=== PATIENT | female | born 1965 | race Caucasian/White ===

== ENCOUNTER 2020-05-28 09:14 | Outpatient (REF) | payer OTHER, SELFPAY ==
--- NOTE | 2020-05-28 10:36 | XR_ITS ---
EXAMINATION: XR LUMBOSACRAL SPINE CLINICAL INFORMATION: Lumbago with sciatica. Right side. COMPARISON: 10/04/2013 and 09/14/2019. TECHNIQUE: 3 views of the lumbar spine and 3 views of the thoracic spine. FINDINGS: There is mild scoliosis of the lumbar spine convex left. No acute fracture is identified. No definite spondylolysis is seen. There is degenerative facet disease seen L3-S1 bilaterally. There is partial sacralization of L5 on the left. Sacroiliac joints unremarkable. There is significant narrowing of the L1-L2 disc space, the L3-L4 disc space with milder narrowing at the L2-L3 disc space level. Schmorl's node is seen involving the inferior endplate of L3. Views of the thoracic spine do not demonstrate any evidence of acute fracture. No destructive bony lesions identified. Pedicles intact. There is multilevel spurring present. IMPRESSION: Mild lumbar scoliosis with multilevel degenerative change as described. Partial sacralization left side of L5. Bilateral facet arthropathy L3-S1. No acute fracture or destructive bony lesions seen within the thoracic spine.
--- NOTE | 2020-05-28 10:36 | XR_ITS ---
EXAMINATION: XR THORACOLUMBAR SPINE CLINICAL INFORMATION: Lumbago with sciatica, right side COMPARISON: None TECHNIQUE: Three-view thoracic spine FINDINGS: Views of the thoracic spine do not demonstrate any evidence of acute fracture. No destructive bony lesions identified. Pedicles intact. There is multilevel spurring present. IMPRESSION: No acute fracture or destructive bony lesions seen within the thoracic spine.
[2020-05-28 13:11] LABS: Rheumatoid Factor < 15.0 IU/mL (<15.0)
[2020-05-29 10:04] LABS: HBS Num1 0.87 mIU/mL (0-7.99); HBc Num1 0.15 S/CO (0.00-0.79); HBsAGNum1 0.15 S/CO (0.00-0.99); HIV AB/AG Nonreactive (Nonreactive); HIV Num 1 0.04 S/CO (0.00-0.99); Hepatitis B Core Antibody Nonreactive (Nonreactive); Hepatitis B Surface Antigen Negative (Negative); ~Hepatitis A Antibody IgM Nonreactive (Nonreactive); ~Hepatitis B Surface Antibody NONREACTIVE (Nonreactive); ~Hepatitis C Antibody Nonreactive (Nonreactive)
[2020-05-30 11:07] LABS: Cyclic Citrullinated Peptide <16 UNITS
[2020-05-30 11:52] LABS: Antibody to SS-A Antigen <1.0 NEG AI (<1.0 NEG); Antibody to SS-B Antigen <1.0 NEG AI (<1.0 NEG)
[2020-05-31 13:02] LABS: Anti Nuclear Antibody Screen NEGATIVE (NEGATIVE)
[2020-05-31 14:56] LABS: ANA Additional Testing NOT INDICATED
== END 2020-05-28 09:15 | disposition home or self-care (01) ==
LOC: HO.XRAY 09:14
PROVIDERS: PCP Internal Medicine; Referring Provider Internal Medicine; Visit Provider Student in an Organized Health Care Education/Training Program
DX: M54.41 Lumbago with sciatica, right side (principal); G89.29 Other chronic pain; L43.8 Other lichen planus; Z88.0 Allergy status to penicillin; Z91.040 Latex allergy status; Z79.52 Long term (current) use of systemic steroids; Z79.899 Other long term (current) drug therapy
CPT/HCPCS: 36415; 72070; 72100; 86038; 86039; 86200; 86235; 86431; 86704; 86706; 86709; 86803; 87340; 87389; 99214

== ENCOUNTER → 2020-06-25 11:19 | Outpatient (BNVA) | payer OTHER, SELFPAY | PROVIDERS: PCP Internal Medicine; Referring Provider Internal Medicine; Visit Provider Student in an Organized Health Care Education/Training Program | DX: M54.41 Lumbago with sciatica, right side (principal); G89.29 Other chronic pain; L43.8 Other lichen planus; Z79.899 Other long term (current) drug therapy | CPT/HCPCS: Q3014 ==

== ENCOUNTER 2020-08-30 10:32 | Outpatient (REF) | payer OTHER, SELFPAY | END 2020-08-30 10:33 | disposition home or self-care (01) | LOC: HO.LAB 10:32 | PROVIDERS: Visit Provider Internal Medicine | DX: Z20.822 Contact with and (suspected) exposure to COVID-19 (principal) | CPT/HCPCS: 36415; C9803; U0003 ==

== ENCOUNTER → 2020-09-11 09:01 | Outpatient (BNVA) | payer OTHER, SELFPAY | PROVIDERS: Visit Provider Anesthesiology | DX: M54.41 Lumbago with sciatica, right side (principal); M46.1 Sacroiliitis, not elsewhere classified; M47.816 Spondylosis without myelopathy or radiculopathy, lumbar region; M51.36 Other intervertebral disc degeneration, lumbar region; E66.9 Obesity, unspecified; Z68.32 Body mass index [BMI] 32.0-32.9, adult | CPT/HCPCS: 99202 ==

== ENCOUNTER → 2020-10-03 15:31 | Outpatient (BNVA) | payer OTHER, SELFPAY | PROVIDERS: PCP Internal Medicine; Visit Provider Student in an Organized Health Care Education/Training Program | DX: L43.8 Other lichen planus (principal); M54.41 Lumbago with sciatica, right side; G89.29 Other chronic pain | CPT/HCPCS: 99212 ==

== ENCOUNTER 2020-10-22 06:08 | Outpatient (REF) | payer OTHER, SELFPAY ==
--- NOTE | ~2020-10-22 | FL_ITS ---
EXAMINATION: XR FLUOROSCOPY WITH IMAGES CLINICAL INFORMATION: M46.1 - Sacroiliitis, not elsewhere classified COMPARISON: Radiographs lumbar spine 05/28/2020 TECHNIQUE: Fluoroscopy performed by Tammy Lord NP. Fluoroscopy time: 0.1 minutes DAP: 0.765 Gycm2 Images: 1 FINDINGS: Spinal needle overlies mid right SI joint. There is contrast in the periarticular soft tissues and probable early intra-articular contrast. FL/FL guidance in treatment room IMPRESSION: Fluoroscopy for pain management procedure.
== END 2020-10-22 06:09 | disposition home or self-care (01) ==
LOC: HO.RADIR 06:08
PROVIDERS: Visit Provider Anesthesiology
DX: M46.1 Sacroiliitis, not elsewhere classified (principal); M47.816 Spondylosis without myelopathy or radiculopathy, lumbar region; E66.9 Obesity, unspecified; M51.36 Other intervertebral disc degeneration, lumbar region
CPT/HCPCS: 27096; J3300; Q9967

== ENCOUNTER 2020-11-05 09:52 | Outpatient (REF) | payer OTHER, SELFPAY ==
[2020-11-05 12:30] LABS: SARS COV2 PCR INHOUSE NEGATIVE (Negative)
== END 2020-11-05 09:53 | disposition home or self-care (01) ==
LOC: HO.LAB 09:52
PROVIDERS: Visit Provider Internal Medicine
DX: Z20.822 Contact with and (suspected) exposure to COVID-19 (principal)
CPT/HCPCS: C9803; U0003

== ENCOUNTER 2020-11-28 12:39 | Outpatient (REF) | payer OTHER, SELFPAY ==
[2020-11-28 13:34] LABS: COVID-19 Test Positive (Negative); IDNOW Serial# 55D5AD1C
== END 2020-11-28 12:40 | disposition home or self-care (01) ==
LOC: HO.LAB 12:39
PROVIDERS: Visit Provider Internal Medicine
DX: Z20.822 Contact with and (suspected) exposure to COVID-19 (principal)
CPT/HCPCS: 36415; 87635; C9803

== ENCOUNTER 2020-12-06 12:55 | Outpatient (REF) | payer OTHER, SELFPAY ==
[2020-12-06 13:27] LABS: COVID-19 Test Negative (Negative)
== END 2020-12-06 12:56 | disposition home or self-care (01) ==
LOC: HO.LAB 12:55
PROVIDERS: Visit Provider Internal Medicine
DX: Z20.822 Contact with and (suspected) exposure to COVID-19 (principal)
CPT/HCPCS: 36415; 87635; C9803

== ENCOUNTER → 2021-01-01 16:26 | Outpatient (BNVA) | payer OTHER, SELFPAY | PROVIDERS: PCP Internal Medicine; Visit Provider Anesthesiology | DX: M46.1 Sacroiliitis, not elsewhere classified (principal); M47.816 Spondylosis without myelopathy or radiculopathy, lumbar region; M51.36 Other intervertebral disc degeneration, lumbar region; E66.9 Obesity, unspecified | CPT/HCPCS: 99212 ==

== ENCOUNTER 2021-01-13 13:27 | Outpatient (REF) | payer OTHER, SELFPAY ==
--- NOTE | ~2021-01-13 | MM_ITS ---
EXAMINATION: MM SCREENING DIGITAL BREAST TOMOSYNTHESIS, BILATERAL CLINICAL INFORMATION: Screening. Asymptomatic. The lifetime risk of breast cancer based on the Tyrer-Cuzick Model is 6%. COMPARISON: Mammography: 08/25/2019, 07/04/2018, 02/11/2017 TECHNIQUE: Digital breast tomosynthesis is performed in both the craniocaudal and mediolateral oblique views along with computer-aided detection (CAD). Synthesized 2D images are generated from the tomosynthesis. FINDINGS: There are scattered areas of fibroglandular density (ACR BI-RADS breast composition Category b). There are no significant masses, abnormal calcifications, or other abnormalities. Parenchymal pattern is similar to prior exams. There is no developing density. Focal nodular asymmetry mid 9:00 right breast is stable. Skin contours are smooth. MM/MM tomosynthesis screening BI IMPRESSION: No mammographic evidence of malignancy. ASSESSMENT: BI-RADS 2: Benign RECOMMENDATION: Routine annual mammography screening. This patient's information was entered into a reminder system with a target due date for their next mammogram.
== END 2021-01-13 13:28 | disposition home or self-care (01) ==
LOC: HO.MAMMO 13:27
PROVIDERS: Visit Provider Internal Medicine
DX: Z12.31 Encounter for screening mammogram for malignant neoplasm of breast (principal)
CPT/HCPCS: 77063; 77067

== ENCOUNTER 2022-01-14 14:37 | Outpatient (REF) | payer OTHER, SELFPAY ==
--- NOTE | ~2022-01-14 | MM_ITS ---
EXAMINATION: MM SCREENING DIGITAL BREAST TOMOSYNTHESIS, BILATERAL CLINICAL INFORMATION: Screening. Asymptomatic. The lifetime risk of breast cancer based on the Tyrer-Cuzick Model is 6.5%. COMPARISON: Mammography: January 13, 2021 and studies dating back to September 14, 2013 TECHNIQUE: Digital breast tomosynthesis is performed in both the craniocaudal and mediolateral oblique views along with computer-aided detection (CAD). Synthesized 2D images are generated from the tomosynthesis. FINDINGS: The breasts are almost entirely fatty (ACR BI-RADS breast composition Category a). There are no significant masses, abnormal calcifications, or other abnormalities. MM/MM tomosynthesis screening BI IMPRESSION: There are no significant changes from prior study. ASSESSMENT: BI-RADS 1: Negative RECOMMENDATION: Routine annual mammography screening. This patient's information was entered into a reminder system with a target due date for their next mammogram.
== END 2022-01-14 14:38 | disposition home or self-care (01) ==
LOC: HO.MAMMO 14:37
PROVIDERS: PCP Internal Medicine; Visit Provider Internal Medicine
DX: Z12.31 Encounter for screening mammogram for malignant neoplasm of breast (principal)
CPT/HCPCS: 77063; 77067

== ENCOUNTER 2022-02-18 06:08 | Outpatient (REF) | payer OTHER, SELFPAY ==
[2022-02-18 06:32] LABS: MANUAL DIFF FLAG NO
[2022-02-18 07:37] LABS: Basophils Percent Auto 0.3 % (0-2); Eosinophils Absolute Auto 0.3 X10*3/uL (0.0-0.4); Eosinophils Percent Auto 4.4 % (0-4); Hematocrit 40.2 % (37.0-47.0); Hemoglobin 13.3 g/dl (12.0-16.0); Imm Gran Abs Auto 0.02 X10*3/uL (0.00-0.03); Imm Gran Pct Auto 0.3 % (0.0-0.4); Lymphocytes Absolute Auto 2.8 X10*3/uL (1.2-4.9); Lymphocytes Percent Auto 48.1 % (20-40); Mean Corpuscular HGB Conc 33.1 g/dl (31.0-35.0); Mean Corpuscular Hemoglobin 30.9 pg (27.0-33.0); Mean Corpuscular Volume 93.5 fL (80.0-98.0); Mean Platelet Volume 8.8 fL (9.4-12.3); Monocytes Absolute Auto 0.5 X10*3/uL (0.1-1.2); Monocytes Percent Auto 8.6 % (2-11); Neutrophils Absolute Auto 2.3 x10*3/uL (2.0-8.3); Neutrophils Percent Auto 38.3 % (45-73); Platelet Count 301 X10*3/uL (160-400); Red Cell Distribution Width 13.2 % (11.0-16.0); White Blood Count 5.9 X10*3/uL (4.8-10.8)
[2022-02-18 07:53] LABS: Alanine Aminotransferase 14 U/L (0-31); Albumin Level 3.9 g/dL (3.5-5.0); Alkaline Phosphatase 103 U/L (39-117); Anion Gap 10 (12-20); Aspartate Amino Transferase 12 U/L (5-31); Bilirubin Direct < 0.2 mg/dL (0.0-0.5); Bilirubin Total 0.3 mg/dL (0.0-1.0); Blood Urea Nitrogen 20 mg/dL (9-16); Calcium 9.1 mg/dL (8.4-10.2); Carbon Dioxide 27 mmol/L (22-29); Chloride 108 mmol/L (96-108); Cholesterol 209 mg/dL; Estimated Glomerular Filt Rate > 60; Glucose Random 96 mg/dL (60-115); HDL Cholesterol 53 mg/dL; LDL Cholesterol Calculated 141 mg/dl; Potassium 4.1 mmol/L (3.3-5.1); Sodium 141 mmol/L (135-145); Total Protein 6.7 g/dL (6.5-8.0); Triglycerides 75 mg/dL
[2022-02-18 07:56] LABS: Alanine Aminotransferase 14 U/L (0-31); Albumin Level 3.9 g/dL (3.5-5.0); Alkaline Phosphatase 105 U/L (39-117); Anion Gap 10 (12-20); Aspartate Amino Transferase 12 U/L (5-31); Bilirubin Total 0.3 mg/dL (0.0-1.0); Blood Urea Nitrogen 19 mg/dL (9-16); Calcium 8.8 mg/dL (8.4-10.2); Carbon Dioxide 28 mmol/L (22-29); Chloride 108 mmol/L (96-108); Estimated Glomerular Filt Rate > 60; Glucose Random 96 mg/dL (60-115); Potassium 4.2 mmol/L (3.3-5.1); Sodium 142 mmol/L (135-145); Total Protein 6.7 g/dL (6.5-8.0)
[2022-02-18 08:15] LABS: Thyroid Stimulating Hormone 2.72 uIU/mL (0.32-4.0); Vitamin D 25-OH Total 39.5 ng/mL (>30)
[2022-02-18 08:46] LABS: Folate 14.4 ng/mL (> or = 4.0); Vitamin B12 403 pg/mL (200-900)
== END 2022-02-18 06:09 | disposition home or self-care (01) ==
LOC: HO.LAB 06:08
PROVIDERS: Nurse Practitioner Family; PCP Internal Medicine; Visit Provider Internal Medicine
DX: E78.00 Pure hypercholesterolemia, unspecified (principal); K21.9 Gastro-esophageal reflux disease without esophagitis; M47.816 Spondylosis without myelopathy or radiculopathy, lumbar region
CPT/HCPCS: 36415; 80053; 80061; 82248; 82306; 82607; 82746; 84439; 84443; 85025; 85027

== ENCOUNTER 2022-02-26 14:08 | Outpatient (REF) | payer OTHER, SELFPAY ==
[2022-02-27 08:34] LABS: CT PCR NOT DETECTED (Not Detect.); NG PCR NOT DETECTED (Not Detect.)
[2022-02-27 09:07] LABS: BV Int Neg Control Negative (Negative); BV Int Pos Control Positive (Positive)
[2022-03-04 14:37] LABS: HPV mRNA E6/E7 rflx Not Detected (Not Detected)
== END 2022-02-26 14:09 | disposition home or self-care (01) ==
LOC: HO.LAB 14:08
PROVIDERS: Visit Provider Internal Medicine
DX: Z12.4 Encounter for screening for malignant neoplasm of cervix (principal); Z11.3 Encounter for screening for infections with a predominantly sexual mode of transmission
CPT/HCPCS: 87480; 87491; 87510; 87591; 87624; 87660; 88142

== ENCOUNTER 2022-04-10 07:53 | Outpatient (REF) | payer OTHER, SELFPAY ==
[2022-04-10 08:32] LABS: COVID-19 Test Negative (Negative); IDNOW Serial# 16C4AD1C
== END 2022-04-10 07:54 | disposition home or self-care (01) ==
LOC: HO.LAB 07:53
PROVIDERS: Visit Provider Internal Medicine
DX: Z20.822 Contact with and (suspected) exposure to COVID-19 (principal)
CPT/HCPCS: 87635; C9803

== ENCOUNTER → 2022-05-01 11:30 | Outpatient (BNVA) | payer OTHER, SELFPAY | PROVIDERS: PCP Internal Medicine; Visit Provider Nurse Practitioner Family | DX: M47.816 Spondylosis without myelopathy or radiculopathy, lumbar region (principal); M25.511 Pain in right shoulder; L43.8 Other lichen planus | CPT/HCPCS: 99212 ==

== ENCOUNTER 2022-05-06 15:23 | Outpatient (REF) | payer OTHER, SELFPAY ==
--- NOTE | ~2022-05-06 | XR_ITS ---
EXAMINATION: XR SHOULDER, RIGHT CLINICAL INFORMATION: Pain. COMPARISON: None TECHNIQUE: AP external rotation, Grashey, scapular Y, and axillary views of the right shoulder. FINDINGS: There is mild reduction in the glenohumeral and AC joint space. There is inferior periarticular enthesophytes along the AC joint. No loose bodies, calcifications or soft tissue abnormality seen. No fracture or dislocation. XR/XR shoulder RT min 2V IMPRESSION: Degenerative arthritic changes right shoulder. No acute fracture or dislocation.
== END 2022-05-06 15:24 | disposition home or self-care (01) ==
LOC: HO.XRAY 15:23
PROVIDERS: PCP Internal Medicine; Visit Provider Nurse Practitioner Family
DX: M25.511 Pain in right shoulder (principal)
CPT/HCPCS: 73030

== ENCOUNTER → 2022-05-21 11:16 | Outpatient (BNVA) | payer OTHER, SELFPAY | PROVIDERS: PCP Internal Medicine; Visit Provider Anesthesiology | DX: M16.10 Unilateral primary osteoarthritis, unspecified hip (principal); M46.1 Sacroiliitis, not elsewhere classified; M47.816 Spondylosis without myelopathy or radiculopathy, lumbar region; E66.9 Obesity, unspecified; M51.36 Other intervertebral disc degeneration, lumbar region | CPT/HCPCS: 99212 ==

== ENCOUNTER 2022-05-22 14:35 | Outpatient (REF) | payer OTHER, SELFPAY ==
--- NOTE | ~2022-05-22 | XR_ITS ---
EXAMINATION: XR BILATERAL HIPS WITH AP PELVIS CLINICAL INFORMATION: Hip, primary osteoarthritis. M16.10 COMPARISON: Radiographs lumbar spine 09/14/2019, CT abdomen and pelvis 06/24/2016. TECHNIQUE: AP view pelvis is performed. Each hip is imaged in AP and frog-lateral projections. There are total of 5 views. FINDINGS: Bony pelvis shows osteitis pubis. There is mild bilateral whiskering from the lateral iliac wings. No diastases SI joints. There is a levocurvature again seen lumbar spine with some degenerative changes lower lumbar region. Soft tissue planes around the hips are symmetric. There is no fracture or dislocation or destructive process bilateral hips. No hip joint narrowing or erosive change or chondrocalcinosis. Mild spurring is present at the caudal aspect bilateral greater trochanters. XR/XR hips KIRK min 3V IMPRESSION: 1. Osteitis pubis. 2. No hip joint narrowing or erosive change. Mild spurring caudal aspect bilateral greater trochanters. 3. Levocurvature lumbar spine with degenerative changes lower lumbar spine.
== END 2022-05-22 14:36 | disposition home or self-care (01) ==
LOC: HO.XRAY 14:35
PROVIDERS: PCP Internal Medicine; Visit Provider Anesthesiology
DX: M16.10 Unilateral primary osteoarthritis, unspecified hip (principal)
CPT/HCPCS: 73522

== ENCOUNTER → 2022-06-01 16:19 | Outpatient (BNVA) | payer OTHER, SELFPAY | PROVIDERS: PCP Internal Medicine; Visit Provider Anesthesiology | DX: M16.10 Unilateral primary osteoarthritis, unspecified hip (principal); M46.1 Sacroiliitis, not elsewhere classified; M47.816 Spondylosis without myelopathy or radiculopathy, lumbar region; E66.9 Obesity, unspecified; M51.36 Other intervertebral disc degeneration, lumbar region; M86.9 Osteomyelitis, unspecified | CPT/HCPCS: 99212 ==

== ENCOUNTER 2022-06-17 08:00 | Outpatient (RCR) | payer OTHER, SELFPAY | END 2022-08-24 14:37 | disposition home or self-care (01) | LOC: HO.WCC 08:00 | PROVIDERS: PCP Internal Medicine; Visit Provider Surgery | DX: T81.31XA Disruption of external operation (surgical) wound, not elsewhere classified, initial encounter (principal); S31.103A Unspecified open wound of abdominal wall, right lower quadrant without penetration into peritoneal cavity, initial encounter; Z98.890 Other specified postprocedural states | CPT/HCPCS: 97602; 99212 ==

== ENCOUNTER 2022-07-07 06:17 | Outpatient (REF) | payer OTHER, SELFPAY ==
--- NOTE | ~2022-07-07 | FL_ITS ---
EXAMINATION: XR FLUOROSCOPY WITH IMAGES CLINICAL INFORMATION: Osteoarthritis, pain. Osteitis pubis. COMPARISON: Pelvic radiograph 05/22/2022. TECHNIQUE: Fluoroscopy Supervised By: Dr. Shon Boyle. Fluoroscopy Time: 0.2 minutes. Cumulative Dose: 7.22 mGy. DAP: 1.67 Gycm2. Images: 2. FINDINGS: There is a spinal needle with tip at the pubic symphysis. There is contrast in the pubic syndesmosis. No extravasation of contrast or vascular communication. FL/FL guidance in treatment room IMPRESSION: Fluoroscopy for pain management procedure.
== END 2022-07-07 06:18 | disposition home or self-care (01) ==
LOC: CF 06:17
PROVIDERS: Visit Provider Anesthesiology
DX: M86.9 Osteomyelitis, unspecified (principal); T81.89XA Other complications of procedures, not elsewhere classified, initial encounter; X58.XXXA Exposure to other specified factors, initial encounter; Y93.9 Activity, unspecified; Y92.9 Unspecified place or not applicable; Y99.9 Unspecified external cause status
CPT/HCPCS: 20605; J3301

== ENCOUNTER → 2022-08-12 14:24 | Outpatient (BNVA) | payer OTHER, SELFPAY | PROVIDERS: PCP Internal Medicine; Visit Provider Anesthesiology | DX: M86.9 Osteomyelitis, unspecified (principal); M16.10 Unilateral primary osteoarthritis, unspecified hip; M46.1 Sacroiliitis, not elsewhere classified; M47.816 Spondylosis without myelopathy or radiculopathy, lumbar region; E66.9 Obesity, unspecified; M51.36 Other intervertebral disc degeneration, lumbar region; Z98.890 Other specified postprocedural states | CPT/HCPCS: Q3014 ==

== ENCOUNTER 2022-08-28 14:43 | Outpatient (RCR) | payer OTHER, SELFPAY | END 2022-09-11 16:00 | disposition home or self-care (01) | LOC: HO.WCC 14:43 | PROVIDERS: PCP Internal Medicine; Visit Provider Physician Assistant | DX: S31.103D Unspecified open wound of abdominal wall, right lower quadrant without penetration into peritoneal cavity, subsequent encounter (principal); T81.31XD Disruption of external operation (surgical) wound, not elsewhere classified, subsequent encounter; E65 Localized adiposity | CPT/HCPCS: 17250; 99212 ==

== ENCOUNTER 2022-09-11 07:57 | Outpatient (REF) | payer OTHER, SELFPAY ==
--- NOTE | ~2022-09-11 | CT_ITS ---
EXAMINATION: CT ABDOMEN AND PELVIS WITH CONTRAST CLINICAL INFORMATION: Disruption of external operation wound. COMPARISON: CT abdomen and pelvis 06/24/2016. TECHNIQUE: Multidetector volumetric images were obtained from the superior aspect of the liver through the pubic symphysis following administration 85 mL of Omnipaque 350 intravenous contrast. Sagittal and coronal reformatted images were obtained on the technologist's workstation. Oral contrast: No This CT examination was performed using dose optimization techniques as appropriate, variously including the following: *Automated exposure control *Adjustment of mA and/or kV according to patient size (this includes techniques or standardized protocols for targeted exams where dose is matched to indication/reason for exam; i.e. extremities or head) *Use of iterative reconstruction technique DLP: 543 mGy-cm FINDINGS: LUNG BASES: The visualized lung bases are unremarkable. LIVER, GALLBLADDER, AND BILIARY TREE: The liver is normal in size, shape, and attenuation. No focal hepatic lesion or biliary ductal dilatation is present. The gallbladder is not present. PANCREAS: There is unchanged fatty infiltration of the head of the pancreas which otherwise appears unremarkable. SPLEEN: Unremarkable. ADRENAL GLANDS: Again seen is a 1.4 cm nodule in the left adrenal gland, completely unchanged when compared to 2016. KIDNEYS AND URETERS: The kidneys are normal in size, shape, and attenuation. No hydronephrosis, hydroureter, or calculi seen. No perinephric stranding. BLADDER: Unremarkable. GASTROINTESTINAL TRACT: Status post gastric sleeve. Extensive sigmoid diverticulosis without diverticulitis. The small and large bowel are otherwise unremarkable. The appendix is unremarkable. ABDOMINAL WALL: No significant hernia is appreciated. Previously seen Lap-Band has been removed since 2016. LYMPH NODES: No retroperitoneal lymphadenopathy. VASCULAR: Calcific plaque present in the infrarenal aorta without aneurysm. PELVIC VISCERA: The uterus and adnexa are unremarkable. OSSEOUS STRUCTURES: Degenerative changes are present in the spine most marked at T12-L1, L2-L3 and L5-L1. No bony destructive lesion. CT/CT abdomen pelvis w IV con IMPRESSION: 1. No evidence of malignancy in the abdomen or pelvis. 2. Incidental note made of gastric sleeve, removal of Lap-Band, stable left adrenal nodule, sigmoid diverticulosis and degenerative changes in the spine. Fleischner guidelines were followed.
[2022-09-11] MEDS: iohexoL 350 MG/ML 100 ML INFUS..BTL IV (10:35)
[2022-09-11] MEDS: Barium Sulfate Oral (Berry) 450 ML ORAL.SUSP 900 ML PO (10:36)
[2022-09-11 12:13] LABS: Creatinine POC 0.6 mg/dL (0.5-1.4); GFR POC > 60
== END 2022-09-11 07:58 | disposition home or self-care (01) ==
LOC: HO.CT 07:57
PROVIDERS: PCP Internal Medicine; Visit Provider Physician Assistant
DX: T81.31XA Disruption of external operation (surgical) wound, not elsewhere classified, initial encounter (principal)
CPT/HCPCS: 74177; 82565; Q9967

== ENCOUNTER 2022-10-08 17:51 | Emergency (ER) | payer OTHER, SELFPAY ==
[2022-10-08 18:41] VITALS: BP 113/65; PULSE 82; RESP 20; TEMP 36.4; O2SAT 96; BMI 33.1
--- NOTE | 2022-10-08 18:43 | ED.GENADULT ---
HPI - General Adult General Chief complaint: Nausea/Vomiting/Diarrhea <Vadim Coe - Last Filed: 10/08/22 18:44> Stated complaint: Abdominal Pain, Vomiting, Chills <Vadim Coe - Last Filed: 10/08/22 18:44> Time Seen by Provider: 10/08/22 23:30 <Vdaim Coe - Last Filed: 10/08/22 18:44> Source: patient <Tammy Godoy MD - Last Filed: 10/09/22 01:35> Mode of arrival: ambulatory <Tammy Godoy MD - Last Filed: 10/09/22 01:35> Limitations: no limitations <Tammy Godoy MD - Last Filed: 10/09/22 01:35> History of Present Illness HPI narrative: patient comes to the emergency room complaining of nausea vomiting and the Mitten diarrhea for 1 week. Patient complaining of diffuse abdominal discomfort. No fever chills. No URI or UTI symptoms <Tammy Godoy MD - Last Filed: 10/09/22 01:35> Related Data Home medications: Home Medications Medication Instructions Recorded Confirmed ascorbate calcium (vitamin C) 500 500 mg PO DAILY 05/28/20 02/26/22 mg tablet clonazepam 0.5 mg tablet 0.5 mg PO BEDTIME 05/28/20 02/26/22 multivitamin 1 tab PO DAILY 05/28/20 02/26/22 thiamine HCl (vitamin B1) 100 mg 100 mg PO DAILY 05/28/20 02/26/22 tablet albuterol sulfate 90 mcg/actuation 2 puff PO Q6H PRN 06/17/20 02/26/22 aerosol inhaler Previous Rx's Medication Instructions Recorded fluticasone propionate 50 1 spray intranasal DAILY #16 mL 08/04/20 mcg/actuation nasal spray,suspension loratadine 10 mg tablet 10 mg PO DAILY PRN allergy 08/11/20 symptoms #30 tabs desvenlafaxine 100 mg 100 mg PO DAILY #30 tabs 02/26/22 tablet,extended release 24 hr oxcarbazepine 600 mg tablet 600 mg PO BID #60 tabs 02/26/22 sennosides 8.6 mg-docusate sodium 2 tab-cap PO BEDTIME #60 tabs 02/26/22 50 mg tablet (Senna-S) gabapentin 300 mg capsule 300 mg PO BEDTIME #30 caps 03/05/22 budesonide-formoterol HFA 160 2 puff inhalation BID #10.2 grams 06/01/22 mcg-4.5 mcg/actuation aerosol inhaler (Symbicort) meloxicam 15 mg tablet 15 mg PO DAILY PRN for pain #90 06/04/22 tabs semaglutide 0.25 mg or 0.5 mg (2 0.25 mg (0.2 mL) subcut QWEEK #1.5 09/17/22 mg/1.5 mL) subcutaneous pen mL injector omeprazole 20 mg capsule,delayed 20 mg PO DAILY #20 caps 10/08/22 release ondansetron 4 mg disintegrating 4 mg PO Q6H PRN nausea and 10/08/22 tablet vomiting #10 tabs levofloxacin 500 mg tablet 500 mg PO DAILY #10 tabs 10/09/22 <Vadim Coe - Last Filed: 10/08/22 18:44> Allergies/adverse reactions: Allergies Allergy/AdvReac Type Severity Reaction Status Date / Time Penicillins [PENICILLINS] Allergy Intermediate HIVES Verified 09/17/22 15:33 latex [Latex] Allergy Mild RASH Verified 09/17/22 15:33 <Vadim Coe - Last Filed: 10/08/22 18:44> Review of Systems Review of Systems: Constitutional : No Weight loss, No Fever, No Chills, No Night Sweats, No Fatigue, No Malaise ENT/Mouth : No Hearing loss, No Ear Pain, No Nasal Congestion, No Sinus Pain, No Hoarseness, No sore throat, No Rhinorrhea, No Swallowing Difficulty Eyes: No Eye Pain, No Swelling, No Redness, No Foreign Body, No Discharge, No Vision Changes Cardiovascular : No Chest Pain, No SOB, No Dyspnea on Exertion, No Orthopnea, No Edema, No Palpitations Respiratory : No Cough, No Sputum, No Wheezing, No Smoke Exposure, No Dyspnea Gastrointestinal : complaining of nausea, vomiting, intermittent diarrhea,, No Constipation, diffuse intermittent cramping/discomfort, no hematochezia or melena Genitourinary : no irregular bleeding, No Dysuria, No Urinary Frequency, No Hematuria, No Urinary Incontinence, No Urgency, No Flank Pain, No Urinary Flow Changes, No Hesitancy Musculoskeletal : No joint pain, No Myalgias, No Joint Swelling Skin : No Skin Lesions, No rash Neuro : No Weakness, No Numbness, No Paresthesias, No Loss of Consciousness, No Dizziness, No Headache Psych : No Anxiety/Panic, No Depression, No SI/HI/AH/VH, No Social Issues, Heme/Lymph: No Bruising, No Bleeding,No Lymphadenopathy Endocrine : No Polyuria, No Polydipsia, No Temperature Intolerance <Tammy Godoy MD - Last Filed: 10/09/22 01:35> [facility] Past Medical History Medical History: Medical History Asthma Bipolar disorder Carpal tunnel syndrome Disc degeneration, lumbar GERD (gastroesophageal reflux disease) Hypercholesterolemia Lumbar spondylosis Migraine Obesity (BMI 30-39.9) Osteoarthritis of hands, bilateral Peptic ulcer disease Renal calculi Sacroiliitis Spondylosis of lumbar spine TIA (transient ischemic attack) Vitamin D deficiency <Vadim Coe - Last Filed: 10/08/22 18:44> Surgical History: Surgical History H/O plastic surgery History of abdominoplasty History of arthroscopy of right knee History of cholecystectomy History of gastric surgery History of lumbar surgery History of tonsillectomy History of tubal ligation LAP-BAND surgery status Vocal cord cyst <Vadim Coe - Last Filed: 10/08/22 18:44> Family History Family History: Family History Father Throat cancer Esophageal cancer Mother Hypertension Cancer Maternal Grandmother Uterine cancer Maternal Aunt Uterine cancer Maternal Uncle Esophageal cancer Prostate cancer <Vadim Coe - Last Filed: 10/08/22 18:44> Social History Social History: Social History Household Members: Spouse Housing: House Alcohol intake: current Alcohol intake frequency: holidays/special occasions only Alcohol type: wine Patient Tobacco Use Status: Former Tobacco user Tobacco use type: Cigarette Years Smoked: quit 1989 e-Cigarette/Vaping Use: Never Used Second Hand Smoke Exposure: Yes Advance Directives: No Advance Directives Information Provided: No service: No Current occupational status: disabled Cognitive needs: No Hearing needs: No Vision needs: Yes (reading glasses) <Vadim Coe - Last Filed: 10/08/22 18:44> Physical Exam ED Vital Signs: Vital Signs - 24 hr 10/08/22 18:41 10/09/22 00:58 Temperature 97.6 F Pulse Rate 82 75 Respiratory Rate 20 18 Blood Pressure 113/65 120/81 Pulse Oximetry 96 97 Oxygen Delivery Method Room Air Room Air BMI result Body Mass Index 33.1 <Vadim Coe - Last Filed: 10/08/22 18:44> Vital Signs - 24 hr 10/08/22 18:41 10/09/22 00:58 Temperature 97.6 F Pulse Rate 82 75 Respiratory Rate 20 18 Blood Pressure 113/65 120/81 Pulse Oximetry 96 97 Oxygen Delivery Method Room Air Room Air BMI result Body Mass Index 33.1 <Tammy Godoy MD - Last Filed: 10/09/22 01:35> Const Other: Appearance: Alert. Oriented X3. No acute distress. Eyes: Pupils equal, round and reactive to light. ENT: Pharynx normal. Neck: Normal inspection. Neck supple. No lymph nodes noted. No crepitus CVS: Normal heart rate and rhythm. Pulses normal. Normal S1 and S2 Respiratory: No respiratory distress. Breath sounds normal. No Wheezing. No rales Abdomen: Soft and nontender. No rigidity. No distention. Skin: Skin warm and dry. Normal skin color. Normal skin turgor. Extremities: No lower extremity edema. No Lacerations. No Rash Neuro: Oriented X 3. No motor deficit. No sensory deficit. Moving all extremities. No slurred speech. CN 2 through 12 grossly intact Psych: calm, cooperative, normal affect <Tammy Godoy MD - Last Filed: 10/09/22 01:35> Course Course Course Narrative: RME- [age] year old female presents for evaluation of abdominal pain nausea vomiting diarrhea x1 week. Patient is quite well appearing this overdose. Plan for labs and consider further imaging is indicated <Vadim Coe - Last Filed: 10/08/22 18:44> Medications Administered Discontinued Medications Generic Name Dose Route Start Last Admin Trade Name Freq PRN Reason Stop Dose Admin Al Hydroxide/Mg Hydroxide 30 ml 10/08/22 23:36 10/08/22 23:45 Magnesium Hydrox/Alum Hydrox 30 Ml Oral.Susp PO 10/08/22 23:37 30 ml ONCE ONE Administration Sodium Chloride 1,000 mls @ 999 mls/hr 10/08/22 23:36 10/09/22 01:31 Ns IVCONT 10/09/22 00:36 Infused .Q1H1M ONE Infusion Lidocaine HCl 15 ml 10/08/22 23:36 10/08/22 23:44 Lidocaine Hcl Viscous 2 % 15 Ml Solution MUCOUS MEM 10/08/22 23:37 15 ml ONCE ONE Administration Ondansetron HCl 4 mg 10/08/22 23:36 10/08/22 23:44 Ondansetron Hcl 4 Mg/2 Ml Vial IVPUSH 10/08/22 23:37 4 mg ONCE ONE Administration <Vadim Coe - Last Filed: 10/08/22 18:44> Medications Administered Discontinued Medications Generic Name Dose Route Start Last Admin Trade Name Freq PRN Reason Stop Dose Admin Al Hydroxide/Mg Hydroxide 30 ml 10/08/22 23:36 10/08/22 23:45 Magnesium Hydrox/Alum Hydrox 30 Ml Oral.Susp PO 10/08/22 23:37 30 ml ONCE ONE Administration Sodium Chloride 1,000 mls @ 999 mls/hr 10/08/22 23:36 10/09/22 01:31 Ns IVCONT 10/09/22 00:36 Infused .Q1H1M ONE Infusion Lidocaine HCl 15 ml 10/08/22 23:36 10/08/22 23:44 Lidocaine Hcl Viscous 2 % 15 Ml Solution MUCOUS MEM 10/08/22 23:37 15 ml ONCE ONE Administration Ondansetron HCl 4 mg 10/08/22 23:36 10/08/22 23:44 Ondansetron Hcl 4 Mg/2 Ml Vial IVPUSH 10/08/22 23:37 4 mg ONCE ONE Administration <Tammy Godoy MD - Last Filed: 10/09/22 01:35> Medical Decision Making Medical Decision Making MDM Narrative: - patient's physical exam is unremarkable - patient's labs are within normal limits. - Patient receiving IV fluids, Zofran, p.o. Maalox and viscous lidocaine. - Patient instructed to follow with the primary care physician. -pt patient's urinalysis is positive <Tammy Godoy MD - Last Filed: 10/09/22 01:35> Differential Diagnosis Differential Diagnoses: The differential diagnosis associated with the presentation includes ( Gastritis, gastroenteritis, peptic ulcer disease) <Tammy Godoy MD - Last Filed: 10/09/22 01:35> Lab Data MDM Lab Attestation statement: I reviewed the patient's lab results. <Tammy Godoy MD - Last Filed: 10/09/22 01:35> Result Diagrams: 10/08/22 19:21 10/08/22 19:21 <Vadim Coe - Last Filed: 10/08/22 18:44> Labs: Lab Results 10/08/22 10/08/22 10/08/22 Range/Units 19:15 19:21 19:21 WBC 7.8 (4.8-10.8) X10*3/uL RBC 4.61 (4.20-5.50) X10*6/uL Hgb 14.3 (12.0-16.0) g/dl Hct 43.3 (37.0-47.0) % MCV 93.9 (80.0-98.0) fL MCH 31.0 (27.0-33.0) pg MCHC 33.0 (31.0-35.0) g/dl RDW 13.2 (11.0-16.0) % Plt Count 259 (160-400) X10*3/uL MPV 8.5 L (9.4-12.3) fL Immature Gran % (Auto) 0.4 (0.0-0.4) % Neut % (Auto) 59.5 (45-73) % Lymph % (Auto) 29.0 (20-40) % [place] % (Auto) 6.6 (2-11) % Eos % (Auto) 4.1 H (0-4) % Baso % (Auto) 0.4 (0-2) % Lymph # (Auto) 2.3 (1.2-4.9) X10*3/uL [place] # (Auto) 0.5 (0.1-1.2) X10*3/uL Eos # (Auto) 0.3 (0.0-0.4) X10*3/uL Baso # (Auto) 0.0 (0.0-0.2) X10*3/uL Abs Immat Gran (auto) 0.03 (0.00-0.03) X10*3/uL Absolute Neuts (auto) 4.7 (2.0-8.3) x10*3/uL Absolute Nucleated RBC 0.000 (0.0-0.012) X10*3/uL Nucleated RBC % (auto) 0.0 (0.0-0.2) /100WBC Sodium 144 (135-145) mmol/L Potassium 4.0 (3.3-5.1) mmol/L Chloride 110 H (96-108) mmol/L Carbon Dioxide 24 (22-29) mmol/L Anion Gap 14 (12-20) BUN 14 (9-16) mg/dL Creatinine 0.68 (0.5-1.4) mg/dL Estim Creat Clear Calc 98.9 Estimated GFR > 60 Random Glucose 119 H (60-115) mg/dL Calcium 8.8 (8.4-10.2) mg/dL Magnesium 1.9 (1.6-2.6) mg/dL Total Bilirubin 0.2 (0.0-1.0) mg/dL AST 15 (5-31) U/L ALT 16 (0-31) U/L Alkaline Phosphatase 116 (39-117) U/L Total Protein 6.7 (6.5-8.0) g/dL Albumin 3.9 (3.5-5.0) g/dL Lipase 18 (8-78) U/L Urine Color Urine Appearance Urine pH (5.0-9.0) Ur Specific [place] (1.005-1.025) Urine Protein (Neg-Trace) mg/dL Urine Glucose (UA) (Negative) mg/dL Urine Ketones (Negative) mg/dL Urine Blood (Negative) Urine Nitrite (Negative) Ur Leukocyte Esterase (Negative) Urine RBC (0-2) /HPF Urine WBC (0-5) /HPF Ur Squamous Epith Cells (0-2) /HPF Urine Bacteria (None Seen) Hyaline Casts (0-2) /LPF Influenza Type A (PCR) NEGATIVE (Negative) Influenza Type B (PCR) NEGATIVE (Negative) RSV RNA Qual (PCR) NEGATIVE (Negative) SARS-CoV-2 RNA (RT-PCR) NEGATIVE (Negative) 10/09/22 Range/Units 00:52 WBC (4.8-10.8) X10*3/uL RBC (4.20-5.50) X10*6/uL Hgb (12.0-16.0) g/dl Hct (37.0-47.0) % MCV (80.0-98.0) fL MCH (27.0-33.0) pg MCHC (31.0-35.0) g/dl RDW (11.0-16.0) % Plt Count (160-400) X10*3/uL MPV (9.4-12.3) fL Immature Gran % (Auto) (0.0-0.4) % Neut % (Auto) (45-73) % Lymph % (Auto) (20-40) % [place] % (Auto) (2-11) % Eos % (Auto) (0-4) % Baso % (Auto) (0-2) % Lymph # (Auto) (1.2-4.9) X10*3/uL [place] # (Auto) (0.1-1.2) X10*3/uL Eos # (Auto) (0.0-0.4) X10*3/uL Baso # (Auto) (0.0-0.2) X10*3/uL Abs Immat Gran (auto) (0.00-0.03) X10*3/uL Absolute Neuts (auto) (2.0-8.3) x10*3/uL Absolute Nucleated RBC (0.0-0.012) X10*3/uL Nucleated RBC % (auto) (0.0-0.2) /100WBC Sodium (135-145) mmol/L Potassium (3.3-5.1) mmol/L Chloride (96-108) mmol/L Carbon Dioxide (22-29) mmol/L Anion Gap (12-20) BUN (9-16) mg/dL Creatinine (0.5-1.4) mg/dL Estim Creat Clear Calc Estimated GFR Random Glucose (60-115) mg/dL Calcium (8.4-10.2) mg/dL Magnesium (1.6-2.6) mg/dL Total Bilirubin (0.0-1.0) mg/dL AST (5-31) U/L ALT (0-31) U/L Alkaline Phosphatase (39-117) U/L Total Protein (6.5-8.0) g/dL Albumin (3.5-5.0) g/dL Lipase (8-78) U/L Urine Color Yellow Urine Appearance Clear Urine pH 6.0 (5.0-9.0) Ur Specific [place] 1.025 (1.005-1.025) Urine Protein Trace (Neg-Trace) mg/dL Urine Glucose (UA) Negative (Negative) mg/dL Urine Ketones Negative (Negative) mg/dL Urine Blood Trace H (Negative) Urine Nitrite Positive H (Negative) Ur Leukocyte Esterase Trace H (Negative) Urine RBC 0-2 (0-2) /HPF Urine WBC 0-5 (0-5) /HPF Ur Squamous Epith Cells 0-2 (0-2) /HPF Urine Bacteria 4+ (None Seen) Hyaline Casts 3-5 (0-2) /LPF Influenza Type A (PCR) (Negative) Influenza Type B (PCR) (Negative) RSV RNA Qual (PCR) (Negative) SARS-CoV-2 RNA (RT-PCR) (Negative) <Vadim Coe - Last Filed: 10/08/22 18:44> Lab Results 10/08/22 10/08/22 10/08/22 Range/Units 19:15 19:21 19:21 WBC 7.8 (4.8-10.8) X10*3/uL RBC 4.61 (4.20-5.50) X10*6/uL Hgb 14.3 (12.0-16.0) g/dl Hct 43.3 (37.0-47.0) % MCV 93.9 (80.0-98.0) fL MCH 31.0 (27.0-33.0) pg MCHC 33.0 (31.0-35.0) g/dl RDW 13.2 (11.0-16.0) % Plt Count 259 (160-400) X10*3/uL MPV 8.5 L (9.4-12.3) fL Immature Gran % (Auto) 0.4 (0.0-0.4) % Neut % (Auto) 59.5 (45-73) % Lymph % (Auto) 29.0 (20-40) % [place] % (Auto) 6.6 (2-11) % Eos % (Auto) 4.1 H (0-4) % Baso % (Auto) 0.4 (0-2) % Lymph # (Auto) 2.3 (1.2-4.9) X10*3/uL [place] # (Auto) 0.5 (0.1-1.2) X10*3/uL Eos # (Auto) 0.3 (0.0-0.4) X10*3/uL Baso # (Auto) 0.0 (0.0-0.2) X10*3/uL Abs Immat Gran (auto) 0.03 (0.00-0.03) X10*3/uL Absolute Neuts (auto) 4.7 (2.0-8.3) x10*3/uL Absolute Nucleated RBC 0.000 (0.0-0.012) X10*3/uL Nucleated RBC % (auto) 0.0 (0.0-0.2) /100WBC Sodium 144 (135-145) mmol/L Potassium 4.0 (3.3-5.1) mmol/L Chloride 110 H (96-108) mmol/L Carbon Dioxide 24 (22-29) mmol/L Anion Gap 14 (12-20) BUN 14 (9-16) mg/dL Creatinine 0.68 (0.5-1.4) mg/dL Estim Creat Clear Calc 98.9 Estimated GFR > 60 Random Glucose 119 H (60-115) mg/dL Calcium 8.8 (8.4-10.2) mg/dL Magnesium 1.9 (1.6-2.6) mg/dL Total Bilirubin 0.2 (0.0-1.0) mg/dL AST 15 (5-31) U/L ALT 16 (0-31) U/L Alkaline Phosphatase 116 (39-117) U/L Total Protein 6.7 (6.5-8.0) g/dL Albumin 3.9 (3.5-5.0) g/dL Lipase 18 (8-78) U/L Urine Color Urine Appearance Urine pH (5.0-9.0) Ur Specific [place] (1.005-1.025) Urine Protein (Neg-Trace) mg/dL Urine Glucose (UA) (Negative) mg/dL Urine Ketones (Negative) mg/dL Urine Blood (Negative) Urine Nitrite (Negative) Ur Leukocyte Esterase (Negative) Urine RBC (0-2) /HPF Urine WBC (0-5) /HPF Ur Squamous Epith Cells (0-2) /HPF Urine Bacteria (None Seen) Hyaline Casts (0-2) /LPF Influenza Type A (PCR) NEGATIVE (Negative) Influenza Type B (PCR) NEGATIVE (Negative) RSV RNA Qual (PCR) NEGATIVE (Negative) SARS-CoV-2 RNA (RT-PCR) NEGATIVE (Negative) 10/09/22 Range/Units 00:52 WBC (4.8-10.8) X10*3/uL RBC (4.20-5.50) X10*6/uL Hgb (12.0-16.0) g/dl Hct (37.0-47.0) % MCV (80.0-98.0) fL MCH (27.0-33.0) pg MCHC (31.0-35.0) g/dl RDW (11.0-16.0) % Plt Count (160-400) X10*3/uL MPV (9.4-12.3) fL Immature Gran % (Auto) (0.0-0.4) % Neut % (Auto) (45-73) % Lymph % (Auto) (20-40) % [place] % (Auto) (2-11) % Eos % (Auto) (0-4) % Baso % (Auto) (0-2) % Lymph # (Auto) (1.2-4.9) X10*3/uL [place] # (Auto) (0.1-1.2) X10*3/uL Eos # (Auto) (0.0-0.4) X10*3/uL Baso # (Auto) (0.0-0.2) X10*3/uL Abs Immat Gran (auto) (0.00-0.03) X10*3/uL Absolute Neuts (auto) (2.0-8.3) x10*3/uL Absolute Nucleated RBC (0.0-0.012) X10*3/uL Nucleated RBC % (auto) (0.0-0.2) /100WBC Sodium (135-145) mmol/L Potassium (3.3-5.1) mmol/L Chloride (96-108) mmol/L Carbon Dioxide (22-29) mmol/L Anion Gap (12-20) BUN (9-16) mg/dL Creatinine (0.5-1.4) mg/dL Estim Creat Clear Calc Estimated GFR Random Glucose (60-115) mg/dL Calcium (8.4-10.2) mg/dL Magnesium (1.6-2.6) mg/dL Total Bilirubin (0.0-1.0) mg/dL AST (5-31) U/L ALT (0-31) U/L Alkaline Phosphatase (39-117) U/L Total Protein (6.5-8.0) g/dL Albumin (3.5-5.0) g/dL Lipase (8-78) U/L Urine Color Yellow Urine Appearance Clear Urine pH 6.0 (5.0-9.0) Ur Specific [place] 1.025 (1.005-1.025) Urine Protein Trace (Neg-Trace) mg/dL Urine Glucose (UA) Negative (Negative) mg/dL Urine Ketones Negative (Negative) mg/dL Urine Blood Trace H (Negative) Urine Nitrite Positive H (Negative) Ur Leukocyte Esterase Trace H (Negative) Urine RBC 0-2 (0-2) /HPF Urine WBC 0-5 (0-5) /HPF Ur Squamous Epith Cells 0-2 (0-2) /HPF Urine Bacteria 4+ (None Seen) Hyaline Casts 3-5 (0-2) /LPF Influenza Type A (PCR) (Negative) Influenza Type B (PCR) (Negative) RSV RNA Qual (PCR) (Negative) SARS-CoV-2 RNA (RT-PCR) (Negative) <Tammy Godoy MD - Last Filed: 10/09/22 01:35> Discharge Plan Discharge Clinical Impression: Nausea vomiting and diarrhea, UTI (urinary tract infection) <Vadim Coe - Last Filed: 10/08/22 18:44> Patient Disposition: Home, Self-Care <Vadim Coe - Last Filed: 10/08/22 18:44> Instructions: Urinary Tract Infection in Women (ED), Acute Nausea and Vomiting (ED) <Vadim Coe - Last Filed: 03/02/23 18:44> Additional Instructions: Please follow-up with your primary care physician tomorrow. If you have any worsening or new symptoms, please return to the emergency room or call 911 <Vadim Coe - Last Filed: 10/08/22 18:44> Prescriptions: New ondansetron 4 mg tablet,disintegrating 4 mg PO Q6H PRN (Reason: nausea and vomiting) Qty: 10 0RF omeprazole 20 mg capsule,delayed release(DR/EC) 20 mg PO DAILY Qty: 20 0RF levofloxacin 500 mg tablet 500 mg PO DAILY Qty: 10 0RF No Action fluticasone propionate 50 mcg/actuation spray,suspension 1 spray intranasal DAILY Qty: 16 3RF loratadine 10 mg tablet 10 mg PO DAILY PRN (Reason: allergy symptoms) Qty: 30 0RF gabapentin 300 mg capsule 300 mg PO BEDTIME Qty: 30 1RF meloxicam 15 mg tablet 15 mg PO DAILY PRN (Reason: for pain) Qty: 90 1RF albuterol sulfate 90 mcg/actuation HFA aerosol inhaler 2 puff PO Q6H PRN budesonide-formoterol [Symbicort] 160-4.5 mcg/actuation HFA aerosol inhaler 2 puff inhalation BID Qty: 10.2 3RF semaglutide 0.25 mg or 0.5 mg(2 mg/1.5 mL) pen injector 0.25 mg subcut QWEEK Qty: 1.5 0RF Rx Instructions: for 4 doses oxcarbazepine 600 mg tablet 600 mg PO BID Qty: 60 0RF desvenlafaxine 100 mg tablet extended release 24 hr 100 mg PO DAILY Qty: 30 0RF sennosides-docusate sodium [Senna-S] 8.6-50 mg tablet 2 tab-cap PO BEDTIME Qty: 60 8RF thiamine HCl (vitamin B1) 100 mg tablet 100 mg PO DAILY multivitamin Tablet 1 tab PO DAILY ascorbate calcium (vitamin C) 500 mg tablet 500 mg PO DAILY clonazepam 0.5 mg tablet 0.5 mg PO BEDTIME Rx Instructions: administer 30 minutes before bedtime <Vadim oCe - Last Filed: 10/08/22 18:44> Interventions: ED Discharge Assessment Last Done: 10/09/22 01:30 <Vadim Coe - Last Filed: 10/08/22 18:44> Discharge Date/Time: 10/09/22 01:31 <Vadim Coe - Last Filed: 10/08/22 18:44>
[2022-10-08 19:25] LABS: MANUAL DIFF FLAG NO
[2022-10-08 19:33] LABS: Basophils Percent Auto 0.4 % (0-2); Eosinophils Absolute Auto 0.3 X10*3/uL (0.0-0.4); Eosinophils Percent Auto 4.1 % (0-4); Hematocrit 43.3 % (37.0-47.0); Hemoglobin 14.3 g/dl (12.0-16.0); Imm Gran Abs Auto 0.03 X10*3/uL (0.00-0.03); Imm Gran Pct Auto 0.4 % (0.0-0.4); Lymphocytes Absolute Auto 2.3 X10*3/uL (1.2-4.9); Mean Corpuscular Volume 93.9 fL (80.0-98.0); Mean Platelet Volume 8.5 fL (9.4-12.3); Monocytes Absolute Auto 0.5 X10*3/uL (0.1-1.2); Monocytes Percent Auto 6.6 % (2-11); Neutrophils Absolute Auto 4.7 x10*3/uL (2.0-8.3); Neutrophils Percent Auto 59.5 % (45-73); Platelet Count 259 X10*3/uL (160-400); Red Blood Count 4.61 X10*6/uL (4.20-5.50); Red Cell Distribution Width 13.2 % (11.0-16.0); White Blood Count 7.8 X10*3/uL (4.8-10.8)
[2022-10-08 19:41] LABS: Alanine Aminotransferase 16 U/L (0-31); Albumin Level 3.9 g/dL (3.5-5.0); Alkaline Phosphatase 116 U/L (39-117); Anion Gap 14 (12-20); Aspartate Amino Transferase 15 U/L (5-31); Bilirubin Total 0.2 mg/dL (0.0-1.0); Blood Urea Nitrogen 14 mg/dL (9-16); Calcium 8.8 mg/dL (8.4-10.2); Carbon Dioxide 24 mmol/L (22-29); Chloride 110 mmol/L (96-108); Creatinine Clr Calc Pharmacy 98.9; Estimated Glomerular Filt Rate > 60; Glucose Random 119 mg/dL (60-115); Lipase 18 U/L (8-78); Magnesium 1.9 mg/dL (1.6-2.6); Sodium 144 mmol/L (135-145); Total Protein 6.7 g/dL (6.5-8.0)
[2022-10-08 20:06] LABS: Influenza A PCR NEGATIVE (Negative); Influenza B PCR NEGATIVE (Negative); Resp Syncy Virus RNA Qual PCR NEGATIVE (Negative); SARS COV2 PCR INHOUSE NEGATIVE (Negative)
[2022-10-08] MEDS: 0.9 % Sodium Chloride 1,000 ML 999 ML IVCONT (23:44)
[2022-10-08] MEDS: ondansetron HCL 4 MG/2 ML VIAL IVPUSH (23:44)
[2022-10-08] MEDS: Lidocaine HCl Viscous 2 % 15 ML SOLUTION MUCOUS MEM (23:44)
[2022-10-08] MEDS: Magnesium Hydrox/Alum Hydrox 30 ML ORAL.SUSP PO (23:45)
[2022-10-09 00:58] VITALS: BP 120/81; PULSE 75; RESP 18; O2SAT 97
[2022-10-09 00:59] LABS: Appearance Urine Clear; Color Urine Yellow; Glucose Urine UA Negative (Negative); Leukocyte Esterase Urine Trace (Negative); Nitrite Urine Positive (Negative); Specific Gravity - Urine 1.025 (1.005-1.025); UMIC TRIGGER UACC YES; Urine Blood Trace (Negative); Urine Ketones Negative (Negative); Urine Protein Trace mg/dL (Neg-Trace)
[2022-10-09 01:03] LABS: Bacteria Urine 4+ (None Seen); RBC Urine 0-2 /HPF (0-2); Squamous Epithelial Cell Urine 0-2 /HPF (0-2); UACC Culture Trigger YES; WBC Urine 0-5 /HPF (0-5)
== END 2022-10-09 03:39 | disposition home or self-care (01) ==
PROVIDERS: Physician Assistant; Emergency Provider Emergency Medicine; PCP Internal Medicine
DX: N39.0 Urinary tract infection, site not specified (principal); R11.2 Nausea with vomiting, unspecified; R19.7 Diarrhea, unspecified; Z20.822 Contact with and (suspected) exposure to COVID-19; Z20.828 Contact with and (suspected) exposure to other viral communicable diseases; Z87.891 Personal history of nicotine dependence; Z79.899 Other long term (current) drug therapy
CPT/HCPCS: 0241U; 80053; 81001; 83690; 83735; 85025; 87086; 87088; 87186; 96361; 96374; 99284; J2405

== ENCOUNTER 2023-02-03 09:47 | Outpatient (REF) | payer OTHER, SELFPAY ==
[2023-02-03 10:03] LABS: MANUAL DIFF FLAG NO
[2023-02-03 10:33] LABS: Basophils Percent Auto 0.5 % (0-2); Eosinophils Absolute Auto 0.5 X10*3/uL (0.0-0.4); Eosinophils Percent Auto 8.2 % (0-4); Hematocrit 39.8 % (37.0-47.0); Imm Gran Abs Auto 0.02 X10*3/uL (0.00-0.03); Imm Gran Pct Auto 0.3 % (0.0-0.4); Lymphocytes Absolute Auto 2.4 X10*3/uL (1.2-4.9); Lymphocytes Percent Auto 37.3 % (20-40); Mean Corpuscular HGB Conc 32.7 g/dl (31.0-35.0); Mean Corpuscular Hemoglobin 30.8 pg (27.0-33.0); Mean Corpuscular Volume 94.3 fL (80.0-98.0); Mean Platelet Volume 9.3 fL (9.4-12.3); Monocytes Absolute Auto 0.5 X10*3/uL (0.1-1.2); Monocytes Percent Auto 8.3 % (2-11); Neutrophils Absolute Auto 2.9 x10*3/uL (2.0-8.3); Neutrophils Percent Auto 45.4 % (45-73); Platelet Count 315 X10*3/uL (160-400); Red Blood Count 4.22 X10*6/uL (4.20-5.50); White Blood Count 6.4 X10*3/uL (4.8-10.8)
[2023-02-03 11:32] LABS: Vitamin D 25-OH Total 39.7 ng/mL (>30)
[2023-02-03 11:37] LABS: Alanine Aminotransferase 17 U/L (0-31); Albumin Level 3.5 g/dL (3.5-5.0); Alkaline Phosphatase 106 U/L (39-117); Anion Gap 11 (12-20); Aspartate Amino Transferase 20 U/L (5-31); Bilirubin Total 0.3 mg/dL (0.0-1.0); Blood Urea Nitrogen 14 mg/dL (9-16); Calcium 9.3 mg/dL (8.4-10.2); Carbon Dioxide 28 mmol/L (22-29); Chloride 111 mmol/L (96-108); Estimated Glomerular Filt Rate > 60; Glucose Random 87 mg/dL (60-115); Potassium 4.9 mmol/L (3.3-5.1); Sodium 145 mmol/L (135-145); Total Protein 6.9 g/dL (6.5-8.0)
== END 2023-02-03 09:48 | disposition home or self-care (01) ==
LOC: HO.LAB 09:47
PROVIDERS: PCP Internal Medicine; Visit Provider Psychiatry & Neurology Psychiatry
DX: Z79.899 Other long term (current) drug therapy (principal)
CPT/HCPCS: 36415; 80053; 82306; 84443; 85025

== ENCOUNTER 2023-02-07 14:39 | Observation (INO) | payer OTHER, SELFPAY ==
[2023-02-07 14:43] VITALS: BP 120/72; PULSE 82; RESP 18; TEMP 37.1; O2SAT 96; BMI 32.9
--- NOTE | 2023-02-07 14:47 | ED.GENADULT ---
HPI - General Adult General Chief complaint: Neuro Symptoms/Deficit Stated complaint: seizures Time Seen by Provider: 02/07/23 17:37 Source: patient, family (Daughter) and RN notes reviewed Mode of arrival: ambulatory Limitations: no limitations History of Present Illness HPI narrative: 57-year-old female with past medical history significant for seizure disorder, asthma, GERD, bipolar disorder presents for evaluation of potential seizures. Per the patient's daughter, the patient had a reported ?episode today. ? Daughter describes the patient was ?shaking all over and then became confused for several minutes afterwards. She takes gabapentin 300 mg t.i.d. and oxcarbazepine for seizure disorder. Patient does not believe that she has had any seizures for a few years However her daughter states that she has had 2 episodes last week at her similar to what she described today The patient also complains of a posterior headache She has not followed up with Cardiology in quite some time as ?everything has been good. ? She reports feeling off balance at times Related Data Home Medications Medication Instructions Recorded Confirmed ascorbate calcium (vitamin C) 500 500 mg PO DAILY 05/28/20 02/07/23 mg tablet clonazepam 0.5 mg tablet 0.5 mg PO DAILY PRN Anxiety 05/28/20 02/08/23 multivitamin 1 tab PO DAILY 05/28/20 02/07/23 thiamine HCl (vitamin B1) 100 mg 100 mg PO DAILY 05/28/20 02/07/23 tablet clonazepam 1 mg tablet 1 mg PO BEDTIME 02/08/23 02/08/23 fluticasone propionate 110 2 puff inhalation BID 02/08/23 02/08/23 mcg/actuation HFA aerosol inhaler (Flovent HFA) Previous Rx's Medication Instructions Recorded loratadine 10 mg tablet 10 mg PO DAILY PRN allergy 08/11/20 symptoms #30 tabs desvenlafaxine 100 mg 100 mg PO DAILY #30 tabs 02/26/22 tablet,extended release 24 hr oxcarbazepine 600 mg tablet 600 mg PO BID #60 tabs 02/26/22 gabapentin 300 mg capsule 300 mg PO BEDTIME #30 caps 03/05/22 omeprazole 20 mg capsule,delayed 20 mg PO DAILY #20 caps 10/08/22 release albuterol sulfate 2.5 mg/3 mL 2.5 mg (3 mL) inhalation QID PRN 11/05/22 (0.083 %) solution for nebulization shortness of breath or wheezing #180 mL meloxicam 15 mg tablet 15 mg PO DAILY PRN for pain #90 12/09/22 tabs sennosides 8.6 mg-docusate sodium 2 tab-cap PO BEDTIME #60 tabs 12/09/22 50 mg tablet (Senna-S) Ventolin HFA 90 mcg/actuation 2 puff PO Q6H PRN for muscle spasm 01/27/23 aerosol inhaler (albuterol sulfate) 30 days #8 grams Allergies Allergy/AdvReac Type Severity Reaction Status Date / Time Penicillins [PENICILLINS] Allergy Intermediate HIVES Verified 02/07/23 14:43 latex [Latex] Allergy Mild RASH Verified 02/07/23 14:43 Review of Systems Constitutional: Constitutional: Reports as per HPI, Denies chills, Denies fatigue and Denies fever(s) Cardiovascular: Cardiovascular: Denies chest pain and Denies dyspnea Respiratory: Respiratory: Denies cough and Denies dyspnea Gastrointestinal: Gastrointestinal: Denies abdominal pain, Denies constipation and Denies vomiting Genitourinary: Genitourinary: Denies dysuria Neurologic: Denies focal weakness Endocrine: Endocrine: Denies fatigue PMFSH Past Medical History Medical History Asthma Bipolar disorder Carpal tunnel syndrome Disc degeneration, lumbar GERD (gastroesophageal reflux disease) Hypercholesterolemia Lumbar spondylosis Migraine Obesity (BMI 30-39.9) Osteoarthritis of hands, bilateral Peptic ulcer disease Renal calculi Sacroiliitis Spondylosis of lumbar spine TIA (transient ischemic attack) Vitamin D deficiency Surgical History H/O plastic surgery History of abdominoplasty History of arthroscopy of right knee History of cholecystectomy History of gastric surgery History of lumbar surgery History of tonsillectomy History of tubal ligation LAP-BAND surgery status Vocal cord cyst Family History Family History Father Throat cancer Esophageal cancer Mother Hypertension Cancer Maternal Grandmother Uterine cancer Maternal Aunt Uterine cancer Maternal Uncle Esophageal cancer Prostate cancer Social History Social History Household Members: Spouse Housing: House Alcohol intake: never Patient Tobacco Use Status: Former Tobacco user Tobacco use type: Cigarette Years Smoked: quit 1989 e-Cigarette/Vaping Use: Never Used Second Hand Smoke Exposure: Yes service: No Current occupational status: disabled Cognitive needs: No Hearing needs: No Vision needs: Yes (reading glasses) Physical Exam ED Vital Signs: Vital Signs - 24 hr 02/07/23 14:43 02/07/23 17:42 02/07/23 19:50 Temperature 98.8 F 97.8 F 98.4 F Pulse Rate 82 67 62 Respiratory Rate 18 16 18 Blood Pressure 120/72 125/71 135/77 Pulse Oximetry 96 97 98 Oxygen Delivery Method Room Air Room Air Room Air 02/07/23 20:00 02/07/23 22:00 02/08/23 00:00 Temperature 98.6 F 98.6 F 97.7 F Pulse Rate 87 78 82 Respiratory Rate 16 16 18 Blood Pressure 130/78 134/80 128/79 Pulse Oximetry 100 100 100 Oxygen Delivery Method Room Air Room Air Room Air 02/08/23 02:00 02/08/23 04:00 Temperature 98.6 F Pulse Rate 77 77 Respiratory Rate 16 16 Blood Pressure 127/85 128/78 Pulse Oximetry 100 100 Oxygen Delivery Method Room Air Room Air BMI result Body Mass Index 32.9 Const General: healthy appearing, comfortable, no acute distress, alert and awake Nutritional Appearance: well nourished Orientation/consciousness: patient oriented x3 HENMT Head: Yes normocephalic and Yes atraumatic Eyes Eyelids: Yes eyelids normal Conjunctivae: conjunctivae normal Sclerae: sclerae normal Corneas: corneas normal Pupils: Equal, round and reactive pupils present EOM: EOMs intact bilaterally Neck Neck: Yes full ROM Resp Effort & Inspection: normal respiratory effort, able to speak in complete sentences and not labored Cardio Rate: regular rate Rhythm: regular rhythm Skin General skin exam: no rashes or lesions noted and elasticity normal Neuro General: patient oriented x3 Cranial nerves: Yes CN's II-XII intact bilaterally, Yes Equal, round and reactive pupils present and Yes Bilaterally intact EOM present Cognition (Neuro): normal cognition Extrem Other: Moving all extremities well without any obvious deformities Course Course Course Narrative: RME: 57 yold presetns to the ED for feeling off just as poor balance for one rika. thinks its due to her meds as states by her psychitraists. patient states has not had seizure in years. patient denies any chest pain or shortness of breath. labs ordered Reevaluation(s) Reevaluation #1: CT angio of the head and neck was performed with no acute finding, will admit the patient for further MRI and neuro evaluation. Time: 04:21 Medications Administered Generic Name Dose Route Start Last Admin Trade Name Freq PRN Reason Stop Dose Admin Ascorbic Acid 500 mg 02/08/23 10:15 02/08/23 10:40 Ascorbic Acid 500 Mg Tablet PO 500 mg DAILY NORA Administration Aspirin 81 mg 02/08/23 09:00 02/08/23 09:16 Aspirin Enteric Coated 81 Mg Tablet. PO 81 mg DAILY NORA Administration Atorvastatin Calcium 80 mg 02/08/23 04:50 02/08/23 05:47 Atorvastatin Calcium 80 Mg Tablet PO 80 mg BEDTIME NORA Administration Docusate Sodium 100 mg 02/08/23 04:43 02/08/23 09:16 Docusate Sodium 100 Mg Capsule PO 100 mg DAILY PRN Administration Constipation Multivitamins/Vitamin C 1 tab 02/08/23 10:15 02/08/23 10:40 Multivitamin Tablet PO 1 tab DAILY NORA Administration Omeprazole 20 mg 02/08/23 10:15 02/08/23 10:40 Omeprazole 20 Mg Capsule. PO 20 mg DAILY@0630 NORA Administration Oxcarbazepine 600 mg 02/08/23 10:15 02/08/23 10:40 Oxcarbazepine 300 Mg Tablet PO 600 mg BID NORA Administration Senna 8.6 mg 02/08/23 09:15 02/08/23 09:16 Sennosides 8.6 Mg Tablet PO 8.6 mg DAILY NORA Administration Thiamine HCl 100 mg 02/08/23 10:15 02/08/23 10:41 Thiamine Hcl 100 Mg Tablet PO 100 mg DAILY NORA Administration Discontinued Medications Generic Name Dose Route Start Last Admin Trade Name Freq PRN Reason Stop Dose Admin Clonazepam 1 mg 02/08/23 10:14 02/08/23 10:41 Clonazepam 1 Mg Tablet PO 02/08/23 10:15 1 mg ONCE ONE Administration Iohexol 85 ml 02/08/23 02:04 02/08/23 02:05 Iohexol 350 Mg/Ml 100 Ml Infus..Btl IV 02/08/23 02:05 85 ml ONCE ONE Administration Medical Decision Making Medical Decision Making [facility] Narrative: 57-year-old female presents for evaluation of potential seizure-like activity. She has not had any neuro workup in quite some time. She is maintained on gabapentin and oxcarbazepine. Patient's lab work is reassuring without any significant lab abnormalities. Given the patient's concern for intermittent seizures will get a CT scan of the brain. Patient's neuro exam is unremarkable. Differential Diagnosis Seizure disorder Medication side effect Vertigo Dehydration Intracranial mass Intracranial hemorrhage Complex migraine Admission/Observation Consideration of admission/observation: Escalation of care including admission/observation considered Consult Healthcare Provider Management of the patient was discussed with: Hospitalist ( Dr Beltran) Lab Data [facility] Lab Attestation statement: I reviewed the patient's lab results. (No leukocytosis her with a level of 5.0, H&H within normal limits. Electrolytes are within normal limits) 02/07/23 15:39 02/07/23 15:39 Labs: Lab Results 02/07/23 02/07/23 02/07/23 Range/Units 15:39 15:39 17:16 WBC 5.0 (4.8-10.8) X10*3/uL RBC 4.20 (4.20-5.50) X10*6/uL Hgb 13.0 (12.0-16.0) g/dl Hct 40.0 (37.0-47.0) % MCV 95.2 (80.0-98.0) fL MCH 31.0 (27.0-33.0) pg MCHC 32.5 (31.0-35.0) g/dl RDW 13.8 (11.0-16.0) % Plt Count 303 (160-400) X10*3/uL MPV 8.9 L (9.4-12.3) fL Immature Gran % (Auto) 0.2 (0.0-0.4) % Neut % (Auto) 43.9 L (45-73) % Lymph % (Auto) 42.9 H (20-40) % Major % (Auto) 6.4 (2-11) % Eos % (Auto) 6.2 H (0-4) % Baso % (Auto) 0.4 (0-2) % Lymph # (Auto) 2.1 (1.2-4.9) X10*3/uL Major # (Auto) 0.3 (0.1-1.2) X10*3/uL Eos # (Auto) 0.3 (0.0-0.4) X10*3/uL Baso # (Auto) 0.0 (0.0-0.2) X10*3/uL Abs Immat Gran (auto) 0.01 (0.00-0.03) X10*3/uL Absolute Neuts (auto) 2.2 (2.0-8.3) x10*3/uL Absolute Nucleated RBC 0.000 (0.0-0.012) X10*3/uL Nucleated RBC % (auto) 0.0 (0.0-0.2) /100WBC Sodium 142 (135-145) mmol/L Potassium 4.4 (3.3-5.1) mmol/L Chloride 106 (96-108) mmol/L Carbon Dioxide 27 (22-29) mmol/L Anion Gap 13 (12-20) BUN 14 (9-16) mg/dL Creatinine 0.67 (0.5-1.4) mg/dL Estim Creat Clear Calc 100.0 Estimated GFR > 60 Random Glucose 111 (60-115) mg/dL Calcium 9.3 (8.4-10.2) mg/dL Magnesium 2.0 (1.6-2.6) mg/dL Total Bilirubin 0.2 (0.0-1.0) mg/dL AST 17 (5-31) U/L ALT 19 (0-31) U/L Alkaline Phosphatase 116 (39-117) U/L Total Protein 7.3 (6.5-8.0) g/dL Albumin 3.8 (3.5-5.0) g/dL Urine Color Yellow Urine Appearance Clear Urine pH 7.0 (5.0-9.0) Ur Specific [place] 1.020 (1.005-1.025) Urine Protein Negative (Neg-Trace) mg/dL Urine Glucose (UA) Negative (Negative) mg/dL Urine Ketones Negative (Negative) mg/dL Urine Blood Negative (Negative) Urine Nitrite Negative (Negative) Ur Leukocyte Esterase Trace H (Negative) Urine RBC 3-5 H (0-2) /HPF Urine WBC 0-5 (0-5) /HPF Ur Squamous Epith Cells 0-2 (0-2) /HPF Urine Bacteria None Seen (None Seen) Hyaline Casts 0-2 (0-2) /LPF Urine Opiates Screen (Not Detect) Urine Fentanyl Screen (Not Detect) Ur Barbiturates Screen (Not Detect) Ur Phencyclidine Scrn (Not Detect) Ur Amphetamines Screen (Not Detect) U Benzodiazepines Scrn (Not Detect) Urine Cocaine Screen (Not Detect) U Marijuana (THC) Screen (Not Detect) 02/07/23 Range/Units 17:16 WBC (4.8-10.8) X10*3/uL RBC (4.20-5.50) X10*6/uL Hgb (12.0-16.0) g/dl Hct (37.0-47.0) % MCV (80.0-98.0) fL MCH (27.0-33.0) pg MCHC (31.0-35.0) g/dl RDW (11.0-16.0) % Plt Count (160-400) X10*3/uL MPV (9.4-12.3) fL Immature Gran % (Auto) (0.0-0.4) % Neut % (Auto) (45-73) % Lymph % (Auto) (20-40) % Major % (Auto) (2-11) % Eos % (Auto) (0-4) % Baso % (Auto) (0-2) % Lymph # (Auto) (1.2-4.9) X10*3/uL Major # (Auto) (0.1-1.2) X10*3/uL Eos # (Auto) (0.0-0.4) X10*3/uL Baso # (Auto) (0.0-0.2) X10*3/uL Abs Immat Gran (auto) (0.00-0.03) X10*3/uL Absolute Neuts (auto) (2.0-8.3) x10*3/uL Absolute Nucleated RBC (0.0-0.012) X10*3/uL Nucleated RBC % (auto) (0.0-0.2) /100WBC Sodium (135-145) mmol/L Potassium (3.3-5.1) mmol/L Chloride (96-108) mmol/L Carbon Dioxide (22-29) mmol/L Anion Gap (12-20) BUN (9-16) mg/dL Creatinine (0.5-1.4) mg/dL Estim Creat Clear Calc Estimated GFR Random Glucose (60-115) mg/dL Calcium (8.4-10.2) mg/dL Magnesium (1.6-2.6) mg/dL Total Bilirubin (0.0-1.0) mg/dL AST (5-31) U/L ALT (0-31) U/L Alkaline Phosphatase (39-117) U/L Total Protein (6.5-8.0) g/dL Albumin (3.5-5.0) g/dL Urine Color Urine Appearance Urine pH (5.0-9.0) Ur Specific [place] (1.005-1.025) Urine Protein (Neg-Trace) mg/dL Urine Glucose (UA) (Negative) mg/dL Urine Ketones (Negative) mg/dL Urine Blood (Negative) Urine Nitrite (Negative) Ur Leukocyte Esterase (Negative) Urine RBC (0-2) /HPF Urine WBC (0-5) /HPF Ur Squamous Epith Cells (0-2) /HPF Urine Bacteria (None Seen) Hyaline Casts (0-2) /LPF Urine Opiates Screen Not Detected (Not Detect) Urine Fentanyl Screen Not Detected (Not Detect) Ur Barbiturates Screen Not Detected (Not Detect) Ur Phencyclidine Scrn Not Detected (Not Detect) Ur Amphetamines Screen Not Detected (Not Detect) U Benzodiazepines Scrn Not Detected (Not Detect) Urine Cocaine Screen Not Detected (Not Detect) U Marijuana (THC) Screen Not Detected (Not Detect) Radiology Impression Discussion of test interpretation with radiology: I have reviewed the radiologist's reading. (? Left occipital mass, no bleed) Discharge Plan Discharge Clinical Impression: Seizure disorder, Acute headache Patient Disposition: Admitted As Inpatient Interventions: Admission Worksheet (ED) Last Done: 02/08/23 08:55 Discharge Date/Time: 02/08/23 08:56
[2023-02-07 16:06] LABS: Alanine Aminotransferase 19 U/L (0-31); Albumin Level 3.8 g/dL (3.5-5.0); Alkaline Phosphatase 116 U/L (39-117); Anion Gap 13 (12-20); Aspartate Amino Transferase 17 U/L (5-31); Bilirubin Total 0.2 mg/dL (0.0-1.0); Blood Urea Nitrogen 14 mg/dL (9-16); Calcium 9.3 mg/dL (8.4-10.2); Carbon Dioxide 27 mmol/L (22-29); Chloride 106 mmol/L (96-108); Estimated Glomerular Filt Rate > 60; Glucose Random 111 mg/dL (60-115); Potassium 4.4 mmol/L (3.3-5.1); Sodium 142 mmol/L (135-145); Total Protein 7.3 g/dL (6.5-8.0)
[2023-02-07 17:42] VITALS: BP 125/71; PULSE 67; RESP 16; TEMP 36.6; O2SAT 97
--- NOTE | 2023-02-07 19:00 | PC.NURSE ---
Assumed care of pt in room ED 6 about pts present condition, the reason why pt came to the ED and all pertinent information about pts lab results, test results and diagnostic test were also discussed.
[2023-02-07 19:50] VITALS: BP 135/77; PULSE 62; RESP 18; TEMP 36.9; O2SAT 98
[2023-02-07 20:00] VITALS: BP 130/78; PULSE 87; RESP 16; TEMP 37; O2SAT 100
[2023-02-07 22:00] VITALS: BP 134/80; PULSE 78; RESP 16; TEMP 37; O2SAT 100
[2023-02-08] VITALS (8 sets, daily range): BP systolic 127–135; BP diastolic 58–85; PULSE 63–82; RESP 16–20; TEMP 36.1–37; O2SAT 95–100
[2023-02-08] MEDS: iohexoL 350 MG/ML 100 ML INFUS..BTL 85 ML IV (02:05)
--- NOTE | 2023-02-08 04:49 | PM.IMHP ---
History of Present Illness Date of Service: 02/08/23 Chief Complaint: Seizure episodes 57-year-old female past medical history of asthma, HLD, bipolar disorder, GERD, migraine, questionable seizure disorder comes into hospital with complaints of multiple episodes of seizure-like activity. Patient reports that she had 3 episodes with the latest 1 being today on day of presentation where she starts having willing speech, blurred vision, and shaking in the legs. Patient reports she has history of concussion many years ago, was seen by Neurology, but not clear if she has been diagnosed with seizure in the past. She does take clonazepam as well as gabapentin and oxcarbazepine and says that she stay compliant with her medications. Reports that she has not had any seizures in many years. 1 episode of pleuritic by her today. Lasting about 4-5 minutes Patient denies any headache, no palpitations, no chest pain, no shortness of breath, no abdominal pain nausea or vomiting, no diarrhea constipation, no urinary symptoms and no lower extremity edema. On arrival to the ED patient hemodynamically stable Labs are significant for WBC count of 5.0, labs otherwise unremarkable, Head CT showsed no intracranial mass, hemorrhage, extra-axial collection, or midline shift, degree might matter differentiation is preserved, CTA of the head and neck showed no hemodynamically significant stenosis in the major intracranial arteries, no saccular aneurysm identified Previous radiologist's read CT of the head with possible mild local. Mass effect without midline shift, Spoke to Dr Claire who was present in the radiology dept and recommended CTA whith readings above Patient will be admitted for further management Review of Systems Review of Systems: Yes all other systems are reviewed and are negative [facility] Medical History Asthma Bipolar disorder Carpal tunnel syndrome Disc degeneration, lumbar GERD (gastroesophageal reflux disease) Hypercholesterolemia Lumbar spondylosis Migraine Obesity (BMI 30-39.9) Osteoarthritis of hands, bilateral Peptic ulcer disease Renal calculi Sacroiliitis Spondylosis of lumbar spine TIA (transient ischemic attack) Vitamin D deficiency Family History Father Throat cancer Esophageal cancer Mother Hypertension Cancer Maternal Grandmother Uterine cancer Maternal Aunt Uterine cancer Maternal Uncle Esophageal cancer Prostate cancer Surgical History H/O plastic surgery History of abdominoplasty History of arthroscopy of right knee History of cholecystectomy History of gastric surgery History of lumbar surgery History of tonsillectomy History of tubal ligation LAP-BAND surgery status Vocal cord cyst Social History Household Members: Spouse Housing: House Alcohol intake: never Patient Tobacco Use Status: Former Tobacco user Tobacco use type: Cigarette Years Smoked: quit 1989 Smoked in Last 30 Days: No e-Cigarette/Vaping Use: Never Used Second Hand Smoke Exposure: Yes Use of substances other than those prescribed or required for medical reasons: No Advance Directives: No Advance Directives Information Provided: No Nutrition Risks: No Nutritional Risk service: No Current occupational status: disabled Cognitive needs: No Hearing needs: No Vision needs: Yes (reading glasses) Meds Allergies Allergy/AdvReac Type Severity Reaction Status Date / Time Penicillins [PENICILLINS] Allergy Intermediate HIVES Verified 02/07/23 14:43 latex [Latex] Allergy Mild RASH Verified 02/07/23 14:43 Active Medications: Current Medications Pharmacy Consult (Consult Rx Perform Med Rec) 1 each MISCELLANE ONCE PRN PRN Reason: Consult order Home Medications Medication Instructions Recorded Confirmed Last Taken Type ascorbate calcium (vitamin C) 500 500 mg PO DAILY 05/28/20 02/07/23 Unknown History mg tablet clonazepam 0.5 mg tablet 0.5 mg PO BEDTIME 05/28/20 02/07/23 Unknown History multivitamin 1 tab PO DAILY 05/28/20 02/07/23 Unknown History thiamine HCl (vitamin B1) 100 mg 100 mg PO DAILY 05/28/20 02/07/23 Unknown History tablet Physical Exam Vital Signs and Narrative: Vital Signs: Last Vital Signs Temp 98.6 F 02/08/23 02:00 Pulse 77 02/08/23 04:00 Resp 16 02/08/23 04:00 BP 128/78 02/08/23 04:00 Pulse Ox 100 02/08/23 04:00 O2 Del Method Room Air 02/08/23 04:00 BMI result Body Mass Index 32.9 Const: General: cooperative and no acute distress Orientation/consciousness: patient oriented x3 Eyes: General: appearance normal, both eyes and all related structures Pupils: Equal, round and reactive pupils present Resp: Effort & Inspection: normal respiratory effort Auscultation: clear to auscultation bilaterally Cardio: Rate: regular rate Rhythm: regular rhythm GI: Palpation (GI): Soft to palpation Auscultation: normal bowel sounds Skin: General skin exam: no rashes or lesions noted Neuro: Other: Cranial nerves 2-12 intact, strength 5/5 in all extremities No neurological deficits General: patient oriented x3 Cranial nerves: Yes Equal, round and reactive pupils present Cognition (Neuro): normal cognition Extrem: General: Yes normal to inspection and Yes no pedal edema Results Labs 02/07/23 15:39 02/07/23 15:39 Labs: Laboratory Results - last 24 hr 02/07/23 02/07/23 02/07/23 15:39 15:39 17:16 MCV 95.2 MCH 31.0 MCHC 32.5 RDW 13.8 Plt Count 303 MPV 8.9 L Immature Gran % (Auto) 0.2 Neut % (Auto) 43.9 L Lymph % (Auto) 42.9 H [place] % (Auto) 6.4 Eos % (Auto) 6.2 H Baso % (Auto) 0.4 Lymph # (Auto) 2.1 [place] # (Auto) 0.3 Eos # (Auto) 0.3 Baso # (Auto) 0.0 Abs Immat Gran (auto) 0.01 Absolute Neuts (auto) 2.2 Absolute Nucleated RBC 0.000 Nucleated RBC % (auto) 0.0 Anion Gap 13 Estim Creat Clear Calc 100.0 Estimated GFR > 60 Random Glucose 111 Calcium 9.3 Magnesium 2.0 Total Bilirubin 0.2 AST 17 ALT 19 Alkaline Phosphatase 116 Total Protein 7.3 Albumin 3.8 Urine Color Yellow Urine Appearance Clear Urine pH 7.0 Ur Specific [place] 1.020 Urine Protein Negative Urine Glucose (UA) Negative Urine Ketones Negative Urine Blood Negative Urine Nitrite Negative Ur Leukocyte Esterase Trace H Urine RBC 3-5 H Urine WBC 0-5 Ur Squamous Epith Cells 0-2 Urine Bacteria None Seen Hyaline Casts 0-2 Urine Opiates Screen Urine Fentanyl Screen Ur Barbiturates Screen Ur Phencyclidine Scrn Ur Amphetamines Screen U Benzodiazepines Scrn Urine Cocaine Screen U Marijuana (THC) Screen 02/07/23 17:16 MCV MCH MCHC RDW Plt Count MPV Immature Gran % (Auto) Neut % (Auto) Lymph % (Auto) [place] % (Auto) Eos % (Auto) Baso % (Auto) Lymph # (Auto) [place] # (Auto) Eos # (Auto) Baso # (Auto) Abs Immat Gran (auto) Absolute Neuts (auto) Absolute Nucleated RBC Nucleated RBC % (auto) Anion Gap Estim Creat Clear Calc Estimated GFR Random Glucose Calcium Magnesium Total Bilirubin AST ALT Alkaline Phosphatase Total Protein Albumin Urine Color Urine Appearance Urine pH Ur Specific [place] Urine Protein Urine Glucose (UA) Urine Ketones Urine Blood Urine Nitrite Ur Leukocyte Esterase Urine RBC Urine WBC Ur Squamous Epith Cells Urine Bacteria Hyaline Casts Urine Opiates Screen Not Detected Urine Fentanyl Screen Not Detected Ur Barbiturates Screen Not Detected Ur Phencyclidine Scrn Not Detected Ur Amphetamines Screen Not Detected U Benzodiazepines Scrn Not Detected Urine Cocaine Screen Not Detected U Marijuana (THC) Screen Not Detected Imaging Radiologist's Impressions: Impressions Head CTA 02/08/23 03:03 IMPRESSION: No hemodynamically significant stenosis in the major intracranial arteries. No saccular aneurysm identified. Assessment and Plan (1) Seizure disorder: Status: Acute (2) Abnormal head CT: Status: Acute (3) Observed seizure-like activity: Status: Acute Plan 57-year-old female with history of concussion with possible seizure disorder comes into the hospital with seizure-like activity/possible TIA # observed seizure-like activity - will obtain EEG, MRI given the abnormal head CT showing possible mass effect/lesion? - CTA of the head and neck negative for any stenosis - monitor on telemetry - aspirin and statin given - neurology consulted # anxiety and depression - continue home anxiolytics # hypothyroidism - continue levothyroxine # asthma - not in exacerbation - continue home inhalers DVT prophylaxis: Early ambulation Time Spent With Patient Time: Total time managing care of this patient today ____ minutes. Quality Stroke Does the patient have a stroke diagnosis?: No VTE Prior VTE?: No VTE Risk Level:: Medical - low VTE Device Contraindication: Treatment Not Indicated VTE Drug Contraindication: Treatment Not Indicated
--- NOTE | 2023-02-08 07:04 | PHA.MEDREC ---
Addendum entered by Lyudmila [facility] 02/08/23 09:41: RN had called this morning saying patients medications do not match her medication reconciliation. I went to patients room to investigate. Patient had bottles from [facility] with her/ I verbally confirmed with her all her medications. There were no discrepancies. Original Note: Pharmacy Consult ? Medication Reconciliation Pharmacy has reviewed the medication reconciliation done by the RN.
--- NOTE | 2023-02-08 07:30 | PC.NURSE ---
pt alert and oriented, resp even and unlabored. offering no complaints, denies any pain. resting quietly on stretcher speaking in full clear sentences. call monique in reach
--- NOTE | 2023-02-08 09:12 | MHC.CM.PN ---
CM met with Patient at bedside and addressed [place] with her, providing Patient with the original and placing a copy on the chart. Patient lives in a duplex with her /HCP and she required no services nor DME [employer]. Home/self care is the goal and CM has initiated and will follow for dc planning. Patient has received Pfizer/covid vax x3 and her PCP is Dr. Jas SANCHEZ.
--- NOTE | 2023-02-08 10:51 | PC.NURSE ---
pt off floor at this time for EEG and MRI via WC with transportation design engineer Lee.
--- NOTE | 2023-02-08 11:37 | HO.PM.IMPN ---
Subjective Subjective Date of Service: 02/08/23 Interval History: no further seizures since admission. Extremely anxious. Review of Systems Denies chest pain Denies shortness of breath Denies nausea vomiting diarrhea Denies fever chills Physical Exam Vital Signs: Vital Signs: Last Vital Signs Temp 97.8 F 02/08/23 09:03 Pulse 70 02/08/23 09:03 Resp 20 02/08/23 09:03 BP 128/71 02/08/23 09:03 Pulse Ox 95 02/08/23 09:03 O2 Del Method Room Air 02/08/23 09:03 BMI result Body Mass Index 32.9 Const: Other: awake alert oriented x3 no acute distress Resp: Other: clear to auscultation bilaterally no rales rhonchi or wheezes Cardio: Other: no S4; positive S1-S2; no S3 murmurs rubs or gallops GI: Other: soft nontender nondistended normoactive bowel sounds Neuro: Other: cranial nerves 2-12 grossly intact as tested. Motor is 5/5 all extremities. Sensation is intact. Cognition appropriate Extrem: Other: no edema bilaterally Objective Data Active Medications Acetaminophen (Acetaminophen 325 Mg Tablet) 650 mg PO Q6H PRN PRN Reason: Pain, Mild (Pain Scale 1-3) Albuterol Sulfate (Albuterol Sulfate (0.083%) 2.5 Mg/3 Ml Vial.Neb) 2.5 mg INHALE RQID PRN PRN Reason: shortness of breath or wheezing Ascorbic Acid (Ascorbic Acid 500 Mg Tablet) 500 mg PO DAILY [facility] Last Admin: 02/08/23 10:40 Dose: 500 mg Documented By: JENNIFER Aspirin (Aspirin Enteric Coated 81 Mg Tablet.) 81 mg PO DAILY [facility] Last Admin: 02/08/23 09:16 Dose: 81 mg Documented By: JENNIFER Atorvastatin Calcium (Atorvastatin Calcium 80 Mg Tablet) 80 mg PO BEDTIME [facility] Last Admin: 02/08/23 05:47 Dose: 80 mg Documented By: KRISTEN Clonazepam (Clonazepam 0.5 Mg Tablet) 0.5 mg PO DAILY PRN PRN Reason: Anxiety Clonazepam (Clonazepam 1 Mg Tablet) 1 mg PO BEDTIME [facility] Docusate Sodium (Docusate Sodium 100 Mg Capsule) 100 mg PO DAILY PRN PRN Reason: Constipation Last Admin: 02/08/23 09:16 Dose: 100 mg Documented By: JENNIFER Gabapentin (Gabapentin 300 Mg Capsule) 300 mg PO BEDTIME [facility] Loratadine (Loratadine 10 Mg Tablet) 10 mg PO DAILY PRN PRN Reason: allergy symptoms Multivitamins/Vitamin C (Multivitamin Tablet) 1 tab PO DAILY [facility] Last Admin: 02/08/23 10:40 Dose: 1 tab Documented By: JENNIFER Non-Formulary Medication (Desvenlafaxine) 100 mg PO DAILY [facility] Omeprazole (Omeprazole 20 Mg Capsule.Dr) 20 mg PO DAILY@0630 [facility] Last Admin: 02/08/23 10:40 Dose: 20 mg Documented By: JENNIFER Ondansetron HCl (Ondansetron Hcl 4 Mg/2 Ml Vial) 4 mg IVPUSH Q8H PRN PRN Reason: Nausea and Vomiting Oxcarbazepine (Oxcarbazepine 300 Mg Tablet) 600 mg PO BID [facility] Last Admin: 02/08/23 10:40 Dose: 600 mg Documented By: JENNIFER Pharmacy Consult (Consult Rx Perform Med Rec) 1 each MISCELLANE ONCE PRN PRN Reason: Consult order Senna (Sennosides 8.6 Mg Tablet) 8.6 mg PO DAILY [facility] Last Admin: 02/08/23 09:16 Dose: 8.6 mg Documented By: JENNIFER Senna/Docusate Sodium (Sennosides/Docusate Sodium Tablet) 2 tab PO BEDTIME [facility] Thiamine HCl (Thiamine Hcl 100 Mg Tablet) 100 mg PO DAILY [facility] Last Admin: 02/08/23 10:41 Dose: 100 mg Documented By: JENNIFER Labs 02/08/23 05:23 02/08/23 05:23 Labs: Laboratory Results - last 24 hr 02/07/23 02/07/23 02/07/23 15:39 15:39 17:16 MCV 95.2 MCH 31.0 MCHC 32.5 RDW 13.8 Plt Count 303 MPV 8.9 L Immature Gran % (Auto) 0.2 Neut % (Auto) 43.9 L Lymph % (Auto) 42.9 H [place] % (Auto) 6.4 Eos % (Auto) 6.2 H Baso % (Auto) 0.4 Lymph # (Auto) 2.1 [place] # (Auto) 0.3 Eos # (Auto) 0.3 Baso # (Auto) 0.0 Abs Immat Gran (auto) 0.01 Absolute Neuts (auto) 2.2 Absolute Nucleated RBC 0.000 Nucleated RBC % (auto) 0.0 Anion Gap 13 Estim Creat Clear Calc 100.0 Estimated GFR > 60 Random Glucose 111 Calcium 9.3 Magnesium 2.0 Total Bilirubin 0.2 AST 17 ALT 19 Alkaline Phosphatase 116 Total Protein 7.3 Albumin 3.8 Urine Color Yellow Urine Appearance Clear Urine pH 7.0 Ur Specific [place] 1.020 Urine Protein Negative Urine Glucose (UA) Negative Urine Ketones Negative Urine Blood Negative Urine Nitrite Negative Ur Leukocyte Esterase Trace H Urine RBC 3-5 H Urine WBC 0-5 Ur Squamous Epith Cells 0-2 Urine Bacteria None Seen Hyaline Casts 0-2 Urine Opiates Screen Urine Fentanyl Screen Ur Barbiturates Screen Ur Phencyclidine Scrn Ur Amphetamines Screen U Benzodiazepines Scrn Urine Cocaine Screen U Marijuana (THC) Screen 02/07/23 02/08/23 02/08/23 17:16 05:23 05:23 MCV 94.5 MCH 31.3 MCHC 33.1 RDW 13.7 Plt Count 275 MPV 8.6 L Immature Gran % (Auto) 0.3 Neut % (Auto) 40.9 L Lymph % (Auto) 43.4 H [place] % (Auto) 8.3 Eos % (Auto) 6.8 H Baso % (Auto) 0.3 Lymph # (Auto) 2.8 [place] # (Auto) 0.5 Eos # (Auto) 0.4 Baso # (Auto) 0.0 Abs Immat Gran (auto) 0.02 Absolute Neuts (auto) 2.7 Absolute Nucleated RBC 0.000 Nucleated RBC % (auto) 0.0 Anion Gap 13 Estim Creat Clear Calc 117.6 Estimated GFR > 60 Random Glucose 85 Calcium 8.7 D Magnesium Total Bilirubin AST ALT Alkaline Phosphatase Total Protein Albumin Urine Color Urine Appearance Urine pH Ur Specific [place] Urine Protein Urine Glucose (UA) Urine Ketones Urine Blood Urine Nitrite Ur Leukocyte Esterase Urine RBC Urine WBC Ur Squamous Epith Cells Urine Bacteria Hyaline Casts Urine Opiates Screen Not Detected Urine Fentanyl Screen Not Detected Ur Barbiturates Screen Not Detected Ur Phencyclidine Scrn Not Detected Ur Amphetamines Screen Not Detected U Benzodiazepines Scrn Not Detected Urine Cocaine Screen Not Detected U Marijuana (THC) Screen Not Detected Assessment and Plan (1) Abnormal head CT: Status: Acute (2) Asthma: Status: Acute Plan 57-year-old female with history of concussion with possible seizure disorder comes into the hospital with seizure-like activity/possible TIA 1.Oserved seizure activity - will obtain EEG, MRI given the abnormal head CT showing possible mass effect/lesion? - CTA of the head and neck negative for any stenosis -aspirin/statin - neuro consult 2.Anxiety and depression - continue home anxiolytics - additional dose of Klonopin prior to MRI 3.Hypothyroidism - continue levothyroxine 4.Asthma - well control on current therapies - adjust as indicated DVT prophylaxis: Early ambulation Time Spent With Patient Time: Total time managing care of this patient today ____ minutes. Quality Stroke Does the patient have a stroke diagnosis?: No VTE Prior VTE?: No VTE Risk Level:: Medical - low VTE Device Contraindication: Treatment Not Indicated VTE Drug Contraindication: Treatment Not Indicated
--- NOTE | 2023-02-08 13:31 | HE.PHANOTE ---
Patient own medication Desvenlafaxine was given to registered pharmacy technician who then handed it to me. I processed patients medications, verified it, placed a label on bottle and sent it back down to pt own bin on the floor.
--- NOTE | 2023-02-08 13:53 | PM.NEUROCN ---
History of Present Illness Data of Consult Service Date: 02/08/23 Primary Care Provider: Jas Tellez MD HPI Reason for consult: Question seizure disorder 57 years old woman who I had seen few years ago in similar circumstances when she had multiple investigations including CT scan of brain MRI and MRA of brain and multiple EEGs not revealing any significant pathology other than underlying anxiety and depression, migraine, and probably related episodes. She was here in somewhat similar circumstances stating that she was having a headache for few weeks every day. Yesterday she was in her kitchen when she felt dizzy lightheaded was mumbling and then apparently passed out. There was no witnessing of convulsion Review of Systems Review of Systems: No recent cold or flu-like illness PMFSH Past Medical History Medical History Asthma Bipolar disorder Carpal tunnel syndrome Disc degeneration, lumbar GERD (gastroesophageal reflux disease) Hypercholesterolemia Lumbar spondylosis Migraine Obesity (BMI 30-39.9) Osteoarthritis of hands, bilateral Peptic ulcer disease Renal calculi Sacroiliitis Spondylosis of lumbar spine TIA (transient ischemic attack) Vitamin D deficiency Family History Family History Father Throat cancer Esophageal cancer Mother Hypertension Cancer Maternal Grandmother Uterine cancer Maternal Aunt Uterine cancer Maternal Uncle Esophageal cancer Prostate cancer Surgical History Surgical History H/O plastic surgery History of abdominoplasty History of arthroscopy of right knee History of cholecystectomy History of gastric surgery History of lumbar surgery History of tonsillectomy History of tubal ligation LAP-BAND surgery status Vocal cord cyst Social History Social History Household Members: Spouse Housing: House Alcohol intake: never Patient Tobacco Use Status: Former Tobacco user Tobacco use type: Cigarette Years Smoked: quit 1989 e-Cigarette/Vaping Use: Never Used Second Hand Smoke Exposure: Yes service: No Current occupational status: disabled Cognitive needs: No Hearing needs: No Vision needs: Yes (reading glasses) Meds Allergies Allergy/AdvReac Type Severity Reaction Status Date / Time Penicillins [PENICILLINS] Allergy Intermediate HIVES Verified 02/07/23 14:43 latex [Latex] Allergy Mild RASH Verified 02/07/23 14:43 Active Medications: Current Medications Acetaminophen (Acetaminophen 325 Mg Tablet) 650 mg PO Q6H PRN PRN Reason: Pain, Mild (Pain Scale 1-3) Albuterol Sulfate (Albuterol Sulfate (0.083%) 2.5 Mg/3 Ml Vial.Matty) 2.5 mg INHALE RQID PRN PRN Reason: shortness of breath or wheezing Ascorbic Acid (Ascorbic Acid 500 Mg Tablet) 500 mg PO DAILY [facility] Last Admin: 02/08/23 10:40 Dose: 500 mg Aspirin (Aspirin Enteric Coated 81 Mg Tablet.) 81 mg PO DAILY [facility] Last Admin: 02/08/23 09:16 Dose: 81 mg Atorvastatin Calcium (Atorvastatin Calcium 80 Mg Tablet) 80 mg PO BEDTIME [facility] Last Admin: 02/08/23 05:47 Dose: 80 mg Clonazepam (Clonazepam 0.5 Mg Tablet) 0.5 mg PO DAILY PRN PRN Reason: Anxiety Clonazepam (Clonazepam 1 Mg Tablet) 1 mg PO BEDTIME [facility] Docusate Sodium (Docusate Sodium 100 Mg Capsule) 100 mg PO DAILY PRN PRN Reason: Constipation Last Admin: 02/08/23 09:16 Dose: 100 mg Gabapentin (Gabapentin 300 Mg Capsule) 300 mg PO BEDTIME [facility] Loratadine (Loratadine 10 Mg Tablet) 10 mg PO DAILY PRN PRN Reason: allergy symptoms Multivitamins/Vitamin C (Multivitamin Tablet) 1 tab PO DAILY [facility] Last Admin: 02/08/23 10:40 Dose: 1 tab Pt Own ( Desvenlafaxine 100 Mg Tablet Extended Release 24 Hr) 100 mg PO DAILY [facility] Omeprazole (Omeprazole 20 Mg Capsule.) 20 mg PO DAILY@0630 [facility] Last Admin: 02/08/23 10:40 Dose: 20 mg Ondansetron HCl (Ondansetron Hcl 4 Mg/2 Ml Vial) 4 mg IVPUSH Q8H PRN PRN Reason: Nausea and Vomiting Oxcarbazepine (Oxcarbazepine 300 Mg Tablet) 600 mg PO BID [facility] Last Admin: 02/08/23 10:40 Dose: 600 mg Pharmacy Consult (Consult Rx Perform Med Rec) 1 each MISCELLANE ONCE PRN PRN Reason: Consult order Senna (Sennosides 8.6 Mg Tablet) 8.6 mg PO DAILY [facility] Last Admin: 02/08/23 09:16 Dose: 8.6 mg Senna/Docusate Sodium (Sennosides/Docusate Sodium Tablet) 2 tab PO BEDTIME [facility] Thiamine HCl (Thiamine Hcl 100 Mg Tablet) 100 mg PO DAILY [facility] Last Admin: 02/08/23 10:41 Dose: 100 mg Home Medications Medication Instructions Recorded Confirmed Last Taken Type ascorbate calcium (vitamin C) 500 500 mg PO DAILY 05/28/20 02/07/23 Unknown History mg tablet clonazepam 0.5 mg tablet 0.5 mg PO DAILY PRN Anxiety 05/28/20 02/08/23 Unknown History multivitamin 1 tab PO DAILY 05/28/20 02/07/23 Unknown History thiamine HCl (vitamin B1) 100 mg 100 mg PO DAILY 05/28/20 02/07/23 Unknown History tablet clonazepam 1 mg tablet 1 mg PO BEDTIME 02/08/23 02/08/23 Unknown History fluticasone propionate 110 2 puff inhalation BID 02/08/23 02/08/23 Unknown History mcg/actuation HFA aerosol inhaler (Flovent HFA) Physical Exam Vital Signs: Vital Signs: Last Vital Signs Temp 96.9 F 02/08/23 13:00 Pulse 73 02/08/23 13:00 Resp 20 02/08/23 13:00 BP 130/58 L 02/08/23 13:00 Pulse Ox 97 02/08/23 13:00 O2 Del Method Room Air 02/08/23 13:00 BMI result Body Mass Index 32.9 Neuro: Other: Alert and awake with normal spontaneity of speech fluency comprehension and anxious affect. Face is symmetrical. Visual hernandez are full. There is no pronator drift. Deep tendon reflexes are 1+ with flexor plantars. Results Labs 02/08/23 05:23 02/08/23 05:23 Labs: Short CBC 02/07/23 02/08/23 Range/Units 15:39 05:23 WBC 5.0 6.5 (4.8-10.8) X10*3/uL Hgb 13.0 12.5 (12.0-16.0) g/dl Hct 40.0 37.8 (37.0-47.0) % Plt Count 303 275 (160-400) X10*3/uL BMP 02/07/23 02/08/23 15:39 05:23 Sodium 142 140 Potassium 4.4 3.9 Chloride 106 105 Carbon Dioxide 27 26 BUN 14 11 Creatinine 0.67 0.57 Calcium 9.3 8.7 D Liver Function 02/07/23 Range/Units 15:39 Total Bilirubin 0.2 (0.0-1.0) mg/dL AST 17 (5-31) U/L ALT 19 (0-31) U/L Alkaline Phosphatase 116 (39-117) U/L Albumin 3.8 (3.5-5.0) g/dL Urine 02/07/23 Range/Units 17:16 Urine Color Yellow Urine Appearance Clear Urine pH 7.0 (5.0-9.0) Ur Specific [place] 1.020 (1.005-1.025) Urine Protein Negative (Neg-Trace) mg/dL Urine Glucose (UA) Negative (Negative) mg/dL CTA of brain and neck did not reveal any vascular lesion. MRI of brain without contrast was okay per previously ambulatory EEG has not reveal any significant abnormality. Assessment and Plan (1) Observed seizure-like activity: Status: Acute 57 years old woman who I had seen in the past as in somewhat similar circumstances and had multiple investigations few years ago including MRI and MRA of brain and CT scan of brain. The scans were repeated again. She also had routine and ambulatory EEGs not revealing any significant abnormality. Her EEG done this time is also unremarkable. Her overall clinical picture is suggestive of intractable migraine, complicated migraine, migraine equivalent syndrome, with underlying anxiety and other psychiatric disorder. Mainstay of management is reassurance and education, psychiatric follow-up, and a medicine to control headache. In that regard I would suggest adding topiramate 25 mg twice a day. She should take appropriate precautions to avoid any accidents and should not drive at this time. Time Spent With Patient Time: Total time managing care of this patient today ____ minutes. Procedures Date of Service Date of Service: 02/08/23
--- NOTE | 2023-02-08 14:26 | PM.DS ---
DS: Providers Provider Date of Service: 02/08/23 Date of admission: 02/08/23 04:43 Date of discharge: 02/08/23 Primary care physician: Jas Tellez MD Consults: 02/08/23 04:47 Consult to Neurology Routine Consulting Provider: [facility] Reason for consultation: seizure vs tia? Has provider been notified: No DS: Diagnosis Discharge Diagnosis (1) Observed seizure-like activity: Status: Acute DS: Summary Hospital Course Hospital Course: 57-year-old female past medical history of asthma, HLD, bipolar disorder, GERD, migraine, questionable seizure disorder comes into hospital with complaints of multiple episodes of seizure-like activity.? Patient reports that she had 3 episodes with the latest 1 being today on day of presentation where she starts having willing speech, blurred vision, and shaking in the legs.? Patient reports she has history of concussion many years ago, was seen by Neurology, but not clear if she has been diagnosed with seizure in the past.? She does take clonazepam as well as gabapentin and oxcarbazepine and says that she stay compliant with her medications.? Reports that she has not had any seizures in many years.? 1 episode of pleuritic by her today.? Lasting about 4-5 minutes.Labs are significant for WBC count of 5.0, labs otherwise unremarkable, Head CT showsed no intracranial mass, hemorrhage, extra-axial collection, or midline shift, degree might matter differentiation is preserved, CTA of the head and neck showed no hemodynamically significant stenosis in the major intracranial arteries, no saccular aneurysm identified Hospital Course admitted to telemetry where monitor failed to demonstrate acute arrhythmias. MRI of the head was done which showed no acute findings. EEG was done which was also read as negative. seen in consultation by Neurology who felt this was not a seizure disorder but rather related to complex migraines in anxiety. Patient will be discharged with an additional med of Topamax twice daily for preventative reasons and can follow-up with her psychiatry and PCP in 2 weeks Time Spent with Patient Time attestation: Total time managing care of this patient today ____ minutes. Discharge coordination time: Greater than 30 minutes Quality: Safe Use of Opioids Does Pt have an Active Cancer Diagnosis on the Problem List?: No Quality: Stroke Does the patient have a stroke diagnosis?: No Physical Exam Vital Signs: Vital Signs: Last Vital Signs Temp 96.9 F 02/08/23 13:00 Pulse 73 02/08/23 13:00 Resp 20 02/08/23 13:00 BP 130/58 L 02/08/23 13:00 Pulse Ox 97 02/08/23 13:00 O2 Del Method Room Air 02/08/23 13:00 BMI result Body Mass Index 32.9 Const: Other: awake alert oriented x3 no acute distress Resp: Other: clear to auscultation bilaterally no rales rhonchi or wheezes Cardio: Other: no S4; positive S1-S2; no S3 murmurs rubs or gallops GI: Other: soft nontender nondistended normoactive bowel sounds Neuro: Other: cranial nerves 2-12 grossly intact as tested. Motor is 5/5 all extremities. Sensation is intact. Cognition appropriate Extrem: Other: no edema bilaterally DS: Data Data Completed and Pending Labs on day of discharge: Laboratory Results - last 24 hr 02/07/23 02/07/23 02/07/23 15:39 15:39 17:16 WBC 5.0 RBC 4.20 Hgb 13.0 Hct 40.0 MCV 95.2 MCH 31.0 MCHC 32.5 RDW 13.8 Plt Count 303 MPV 8.9 L Immature Gran % (Auto) 0.2 Neut % (Auto) 43.9 L Lymph % (Auto) 42.9 H [place] % (Auto) 6.4 Eos % (Auto) 6.2 H Baso % (Auto) 0.4 Lymph # (Auto) 2.1 [place] # (Auto) 0.3 Eos # (Auto) 0.3 Baso # (Auto) 0.0 Abs Immat Gran (auto) 0.01 Absolute Neuts (auto) 2.2 Absolute Nucleated RBC 0.000 Nucleated RBC % (auto) 0.0 Sodium 142 Potassium 4.4 Chloride 106 Carbon Dioxide 27 Anion Gap 13 BUN 14 Creatinine 0.67 Estim Creat Clear Calc 100.0 Estimated GFR > 60 Random Glucose 111 Calcium 9.3 Magnesium 2.0 Total Bilirubin 0.2 AST 17 ALT 19 Alkaline Phosphatase 116 Total Protein 7.3 Albumin 3.8 Urine Color Yellow Urine Appearance Clear Urine pH 7.0 Ur Specific [place] 1.020 Urine Protein Negative Urine Glucose (UA) Negative Urine Ketones Negative Urine Blood Negative Urine Nitrite Negative Ur Leukocyte Esterase Trace H Urine RBC 3-5 H Urine WBC 0-5 Ur Squamous Epith Cells 0-2 Urine Bacteria None Seen Hyaline Casts 0-2 Urine Opiates Screen Urine Fentanyl Screen Ur Barbiturates Screen Ur Phencyclidine Scrn Ur Amphetamines Screen U Benzodiazepines Scrn Urine Cocaine Screen U Marijuana (THC) Screen 02/07/23 02/08/23 02/08/23 17:16 05:23 05:23 WBC 6.5 RBC 4.00 L Hgb 12.5 Hct 37.8 MCV 94.5 MCH 31.3 MCHC 33.1 RDW 13.7 Plt Count 275 MPV 8.6 L Immature Gran % (Auto) 0.3 Neut % (Auto) 40.9 L Lymph % (Auto) 43.4 H [place] % (Auto) 8.3 Eos % (Auto) 6.8 H Baso % (Auto) 0.3 Lymph # (Auto) 2.8 [place] # (Auto) 0.5 Eos # (Auto) 0.4 Baso # (Auto) 0.0 Abs Immat Gran (auto) 0.02 Absolute Neuts (auto) 2.7 Absolute Nucleated RBC 0.000 Nucleated RBC % (auto) 0.0 Sodium 140 Potassium 3.9 Chloride 105 Carbon Dioxide 26 Anion Gap 13 BUN 11 Creatinine 0.57 Estim Creat Clear Calc 117.6 Estimated GFR > 60 Random Glucose 85 Calcium 8.7 D Magnesium Total Bilirubin AST ALT Alkaline Phosphatase Total Protein Albumin Urine Color Urine Appearance Urine pH Ur Specific [place] Urine Protein Urine Glucose (UA) Urine Ketones Urine Blood Urine Nitrite Ur Leukocyte Esterase Urine RBC Urine WBC Ur Squamous Epith Cells Urine Bacteria Hyaline Casts Urine Opiates Screen Not Detected Urine Fentanyl Screen Not Detected Ur Barbiturates Screen Not Detected Ur Phencyclidine Scrn Not Detected Ur Amphetamines Screen Not Detected U Benzodiazepines Scrn Not Detected Urine Cocaine Screen Not Detected U Marijuana (THC) Screen Not Detected Discharge Plan Discharge Anticipated Discharge Date/Time: 02/08/23 14:22 Patient Disposition: Home, Self-Care Referrals: Po,Jas Smith MD [Primary Care Provider] - 1 Week Discharge Medications: New topiramate [Topamax] 25 mg tablet 25 mg PO BID Qty: 60 0RF Continued loratadine 10 mg tablet 10 mg PO DAILY PRN (Reason: allergy symptoms) Qty: 30 0RF gabapentin 300 mg capsule 300 mg PO BEDTIME Qty: 30 1RF albuterol sulfate 2.5 mg /3 mL (0.083 %) solution for nebulization 2.5 mg inhalation QID PRN (Reason: shortness of breath or wheezing) Qty: 180 0RF meloxicam 15 mg tablet 15 mg PO DAILY PRN (Reason: for pain) Qty: 90 1RF sennosides-docusate sodium [Senna-S] 8.6-50 mg tablet 2 tab-cap PO BEDTIME Qty: 60 8RF albuterol sulfate [Ventolin HFA] 90 mcg/actuation HFA aerosol inhaler 2 puff PO Q6H PRN (Reason: for muscle spasm) 30 Days Qty: 8 1RF omeprazole 20 mg capsule,delayed release(DR/EC) 20 mg PO DAILY Qty: 20 0RF clonazepam 1 mg tablet 1 mg PO BEDTIME Rx Instructions: administer 30 minutes before bedtime fluticasone propionate [Flovent HFA] 110 mcg/actuation HFA aerosol inhaler 2 puff INHALATION BID oxcarbazepine 600 mg tablet 600 mg PO BID Qty: 60 0RF desvenlafaxine 100 mg tablet extended release 24 hr 100 mg PO DAILY Qty: 30 0RF thiamine HCl (vitamin B1) 100 mg tablet 100 mg PO DAILY multivitamin Tablet 1 tab PO DAILY ascorbate calcium (vitamin C) 500 mg tablet 500 mg PO DAILY clonazepam 0.5 mg tablet 0.5 mg PO DAILY PRN (Reason: Anxiety) Rx Instructions: administer 30 minutes before bedtime Discharge Orders: Discharge Order (Routine); Ordered 02/08/23 Ordered By: Buzz Watts Diet: Advance to usual diet Activity on Discharge: As tolerated Stand Alone Forms: Patient Portal Discharge page Care Plan Goals: add Topamax twice daily for prevention of headaches Health Concerns: resume all medicines as taken before hospitalization Plan of Treatment: follow-up with her primary providers in 2 weeks Assessment: see discharge summary
== END 2023-02-08 15:07 | disposition home or self-care (01) ==
LOC: HO.ED 23:17 → HO.EDOVER 02-08 04:51 → HO.IMC 02-08 07:33
PROVIDERS: Physician Assistant; Admitting Provider Internal Medicine; Emergency Provider Emergency Medicine; PCP Internal Medicine; Visit Provider Hospitalist
DX: G43.809 Other migraine, not intractable, without status migrainosus (principal); G40.909 Epilepsy, unspecified, not intractable, without status epilepticus; H53.8 Other visual disturbances; R93.0 Abnormal findings on diagnostic imaging of skull and head, not elsewhere classified; J45.909 Unspecified asthma, uncomplicated; E78.00 Pure hypercholesterolemia, unspecified; E78.5 Hyperlipidemia, unspecified; F41.8 Other specified anxiety disorders
CPT/HCPCS: 36415; 70450; 70496; 70551; 80048; 80053; 80307; 81001; 83735; 85025; 95816; 97161; 97165; 99222; 99285; Q9967

== ENCOUNTER 2023-02-19 11:20 | Outpatient (REF) | payer OTHER, SELFPAY ==
--- NOTE | ~2023-02-19 | MM_ITS ---
EXAMINATION: MM SCREENING DIGITAL BREAST TOMOSYNTHESIS, BILATERAL CLINICAL INFORMATION: Screening. Asymptomatic. The lifetime risk of breast cancer based on the Tyrer-Cuzick Model is 4.4%. COMPARISON: Mammography: This study is compared with prior exams dating back to 2018. TECHNIQUE: Digital breast tomosynthesis is performed in both the craniocaudal and mediolateral oblique views along with computer-aided detection (CAD). Synthesized 2D images are generated from the tomosynthesis. FINDINGS: There are scattered areas of fibroglandular density (ACR BI-RADS breast composition Category b). There are no significant masses, abnormal calcifications, or other abnormalities. MM/MM tomosynthesis screening BI IMPRESSION: No mammographic evidence of malignancy. ASSESSMENT: BI-RADS BI-RADS 1 - Negative RECOMMENDATION: Routine annual mammography screening. 1 year F/U This examination should not preclude the clinical evaluation of a suspicious palpable abnormality. This patient's information was entered into a reminder system with a target due date for their next mammogram.
== END 2023-02-19 11:21 | disposition home or self-care (01) ==
LOC: HO.MAMMO 11:20
PROVIDERS: PCP Internal Medicine; Visit Provider Internal Medicine
DX: Z12.31 Encounter for screening mammogram for malignant neoplasm of breast (principal)
CPT/HCPCS: 77063; 77067

== ENCOUNTER → 2023-02-19 11:30 | Outpatient (BNV) | payer OTHER, SELFPAY | PROVIDERS: PCP Internal Medicine; Visit Provider Radiology Diagnostic Radiology | DX: Z12.31 Encounter for screening mammogram for malignant neoplasm of breast (principal) | CPT/HCPCS: 77063; 77067 ==

== ENCOUNTER 2023-03-01 17:29 | Outpatient (AMB) | payer OTHER, SELFPAY ==
[2023-03-01 17:31] VITALS: BP 124/78; PULSE 80; O2SAT 98; BMI 32.4
--- NOTE | 2023-03-01 17:31 | A.OFFPC_ITS ---
Vital Signs 03/01/23 17:31 Height 5 ft 5 in Weight 195 lb BMI 32.4 BP 124/78 Blood Pressure Location Lt brachial Position Sitting Pulse 80 Pulse Source Pulse Oximeter Pulse Oximetry (%) 98 Oxygen Delivery Method Room Air Intake Visit Reasons: PE Allergies Penicillins [PENICILLINS] Allergy (Intermediate, Verified 03/01/23 17:32) HIVES latex [Latex] Allergy (Mild, Verified 03/01/23 17:32) RASH Medication List - Last Reconciled 03/01/23 by Jas Tellez MD albuterol sulfate 2.5 mg (3 mL) inhalation QID PRN ascorbate calcium (vitamin C) 500 mg PO DAILY clonazepam 1 mg PO BEDTIME clonazepam 0.5 mg PO DAILY PRN desvenlafaxine ER 100 mg PO DAILY fluticasone propionate 110 mcg/actuation (Flovent HFA) 2 puffs inhalation BID gabapentin 300 mg PO BEDTIME lactulose 20 grams (30 mL) PO BID PRN loratadine 10 mg PO DAILY PRN meloxicam 15 mg PO DAILY PRN multivitamin 1 tab PO DAILY omeprazole 20 mg PO DAILY oxcarbazepine 600 mg PO BID thiamine HCl (vitamin B1) 100 mg PO DAILY topiramate (Topamax) 25 mg PO BID Ventolin HFA 90 mcg/actuation (albuterol sulfate) 2 puffs PO Q6H PRN 30 days NS Tobacco use date assessed: 03/01/23 Dental Screening Dental Screen Date: 03/01/23 Did you have a dental visit in the last 12 months?: Yes Did you have a dental problem in the last 6 months where you did not have access to dental care?: No Was dental information given to patient?: Patient has dentist HPI PE HPI Details 57-year-old obese female with bipolar disorder GERD lumbar spine spondylosis diverticular disease constipation patient is here for physical exam last seen in September 2019 colonoscopy is up-to-date patient was in the hospital in February for question of seizures daughter describes shaking all over and then became confused for several minutes afterwards she takes gabapentin and oxcarbazepine. Patient had CT, CTA and eeg MRI all within normal limits. Patient did see Neurology and diagnosis not seizures but complex migraine and anxiety patient was placed on Topamax twice a day. Patient was also in the ER in October for UTI TCM TCM Information Discharged From [facility] Medical History Asthma Bipolar disorder Carpal tunnel syndrome Disc degeneration, lumbar GERD (gastroesophageal reflux disease) Hypercholesterolemia Lumbar spondylosis Migraine Obesity (BMI 30-39.9) Osteoarthritis of hands, bilateral Peptic ulcer disease Renal calculi Sacroiliitis Spondylosis of lumbar spine TIA (transient ischemic attack) Vitamin D deficiency Surgical History H/O plastic surgery History of abdominoplasty History of arthroscopy of right knee History of cholecystectomy History of gastric surgery History of lumbar surgery History of tonsillectomy History of tubal ligation LAP-BAND surgery status Vocal cord cyst Family History Father Throat cancer Esophageal cancer Mother Hypertension Cancer Maternal Grandmother Uterine cancer Maternal Aunt Uterine cancer Maternal Uncle Esophageal cancer Prostate cancer Social History Household Members: Spouse Housing: House Alcohol intake: never Patient Tobacco Use Status: Former Tobacco user Tobacco use type: Cigarette Years Smoked: 1989 e-Cigarette/Vaping Use: Never Used Second Hand Smoke Exposure: Yes service: No Current occupational status: disabled Cognitive needs: No Hearing needs: No Vision needs: Yes (reading glasses) Questionnaire PHQ-9 Over the last 2 weeks, how often have you been bothered by any of the following problems? 1. Little interest or pleasure in doing things: not at all 2. Feeling down, depressed, or hopeless: not at all 3. Trouble falling or staying asleep, or sleeping too much: not at all 4. Feeling tired or having little energy: not at all 5. Poor appetite or overeating: not at all 6. Feeling bad about yourself - or that you are a failure or have let yourself or your family down: not at all 7. Trouble concentrating on things, such as reading the newspaper or watching television: not at all 8. Moving or speaking so slowly that other people could have noticed. Or the opposite - being so fidgety or restless that you have been moving around a lot more than usual: not at all 9. Thoughts that you would be better off or of hurting yourself in some way: not at all Total score: 0 Depression Screening Interpretation: Negative Source: Developed by Drs. Juma Mckinley, Vinny Albert and colleagues, with an educational shiraz from [employer]. Thrive Questionnaire Date Thrive assessed: 02/08/23 AUDIT C Alcohol Use Questionnaire (AUDIT-C) 1. How often do you have a drink containing alcohol?: Never 2. How many drinks containing alcohol do you have on a typical day when you are drinking?: 1 or 2 (0) 3. How often do you have six or more drinks on one occasion?: Never Total Score: 0 PEPE-7 AMB Questionnaire PEPE-7 Date PEPE - 7 assessed: 09/17/22 Source: Developed by Drs. Juma Mckinley, Vinny Albert and colleagues, with an educational shiraz from [employer]. Review of Systems Const Denies poor appetite and Denies weakness Eyes Denies no additional complaints ENT Reports Normal hearing present, Denies dizziness, Denies nasal congestion, Denies tinnitus and Denies sore throat Card Denies chest pain, Denies syncope, Denies rapid heart rate and Denies dyspnea Resp Denies cough and Denies dyspnea GI Denies change in stool character, Reports constipation, Denies diarrhea, Denies nausea and Denies vomiting Denies urinary frequency, Denies difficulty voiding and Denies dysuria Neuro Reports Normal hearing present, Denies confusion, Denies dizziness, Denies syncope and Denies weakness Psych Denies confusion Physical exam (Primary Care) Vital Signs: Last Vital Signs Pulse 80 03/01/23 17:31 BP 124/78 03/01/23 17:31 Pulse Ox 98 03/01/23 17:31 Oxygen Delivery Method Room Air 03/01/23 17:31 BMI result Body Mass Index 32.4 Tobacco/Smoking Status: Tobacco use Status Tobacco use date assessed 03/01/23 03/01/23 17:39 Patient Tobacco Use Status Former Tobacco user 03/01/23 17:39 Tobacco use type Cigarette 03/01/23 17:39 e-Cigarette/Vaping Use Never Used 03/01/23 17:39 PHQ-9: PHQ-9 Score PHQ-9: Total score 0 03/01/23 17:39 Depression Screening Interpretation: Negative Thrive Assessment: Date of Thrive Assessment Date Thrive assessed 02/08/23 03/01/23 17:39 Const General: No confusion Orientation/consciousness: No confusion HENMT Other: R impacted cerumen, L Head: Yes normocephalic Ears: external ears normal Face and sinus: Yes normal facial exam Mouth: moist mucous membranes Throat: Yes tonsils normal Eyes Conjunctivae: conjunctivae normal Pupils: Equal, round and reactive pupils present and Pupil accommodation reflex normal Direct Ophthalmoscopy: normal light reflex Neck Neck: No lymphadenopathy Thyroid: Thyroid normal Chest Chest palpation & inspection: normal inspection of the chest Resp Effort & Inspection: normal respiratory effort and no audible wheezes Auscultation: clear to auscultation bilaterally, no crackles, no wheezes and lung sounds not diminished Cardio Rate: regular rate Rhythm: regular rhythm Peripheral pulses: radial pulses present, femoral pulses present and dorsalis pedis present GI Other: Guaiac negative stools Palpation (GI): no masses Auscultation: normal bowel sounds and normoactive bowel sounds Skin General skin exam: no rashes or lesions noted Rashes: no rashes Neuro General: No confusion Cranial nerves: Yes Equal, round and reactive pupils present and Yes Normal hearing present Cognition (Neuro): normal cognition Gait exam (Neuro): Normal gait present Motor exam (neuro): 5/5 motor strength present throughout Deep tendon reflexes (DTR's): Right brachioradialis reflex intensity grade: 2+, Left brachioradialis reflex intensity grade: 2+, Right patellar reflex intensity grade: 2+ and Left patellar reflex intensity grade: 2+ Extrem General: No edema Office Procedures Cerumen Removal From which ear canal was the cerumen removed: right Removal: irrigation, otoscope w/curette and cerumen loop/spoon Notes: patient tolerated procedure well, no complications and ear canal clear [id number] Irrigation/Lavage Assessment and Plan Assessment & Plan (1) Annual physical exam: Code(s): Z00.00 - Encounter for general adult medical examination without abnormal findings (2) GERD (gastroesophageal reflux disease): Comment: December 2019 Code(s): K21.9 - Gastro-esophageal reflux disease without esophagitis Qualifiers: Esophagitis presence: without esophagitis Qualified Code(s): K21.9 - Gastro-esophageal reflux disease without esophagitis Plan: Avoid the foods that causes that usually spicy foods, tomato products, juices, coffee, soda and foods that your sensitive to. After eating do not lie down, allow 3-4 hours before in lie down. And keep the head of bed above 30 degrees to avoid the acid from going up. (3) Migraine: Comment: 48 hour EEG negative March 2019 Code(s): G43.909 - Migraine, unspecified, not intractable, without status migrainosus Qualifiers: Migraine type: with aura Status migrainosus presence: without status migrainosus Intractability: not intractable Qualified Code(s): G43.109 - Migraine with aura, not intractable, without status migrainosus Plan: Continue with migraine medications (4) Bipolar disorder: Comment: [place] Code(s): F31.9 - Bipolar disorder, unspecified Qualifiers: Active/Remission status: currently active Current bipolar episode type: depressed Current episode severity: moderate Qualified Code(s): F31.32 - Bipolar disorder, current episode depressed, moderate Plan: Continue with counseling and therapy (5) Obesity (BMI 30-39.9): Code(s): E66.9 - Obesity, unspecified Plan: Diet and exercise continue (6) Hypercholesterolemia: Code(s): E78.00 - Pure hypercholesterolemia, unspecified Plan: Avoid fried foods, chicken skin, eggs, butter margarine, pastries and meat. Be it pork or beef they have a lot of cholesterol LDL goal of less than 130 and triglyceride of less than 150 (7) Constipation: Code(s): K59.00 - Constipation, unspecified (8) Impacted cerumen of right ear: Code(s): H61.21 - Impacted cerumen, right ear Plan: irrigation and scoop used TM R ear intact Medications: New lactulose 20 grams (30 mL) PO BID PRN 1,200 mL 1RF constipation K59.00 - Constipation, unspecified Discontinued sennosides-docusate sodium 8.6-50 mg (Senna-S) Discontinued Reason: Ancillary Entered New Order 2 tab-caps (2 x 8.6-50 mg) PO BEDTIME 60 tabs 8RF K59.00 - Constipation, unspecified Coding Level of Care Code Est Pt Prev Care 40-64y(00707) Diagnoses Annual physical exam Z00.00 GERD (gastroesophageal reflux disease) K21.9 Esophagitis presence: without esophagitis Migraine G43.109 Migraine type: with aura Status migrainosus presence: without status migrainosus Intractability: not intractable Bipolar disorder F31.32 Active/Remission status: currently active Current bipolar episode type: depressed Current episode severity: moderate Obesity (BMI 30-39.9) E66.9 Hypercholesterolemia E78.00 Constipation K59.00 Impacted cerumen of right ear H61.21 CPT Codes Office Procedure - CPT: 87847-Ofn Irrigation/Lavage ([id number])
== END 2023-03-01 18:12 | disposition home or self-care (01) ==
PROVIDERS: Visit Provider Internal Medicine
DX: Z00.00 Encounter for general adult medical examination without abnormal findings (principal); K21.9 Gastro-esophageal reflux disease without esophagitis; G43.109 Migraine with aura, not intractable, without status migrainosus; H61.21 Impacted cerumen, right ear; F31.32 Bipolar disorder, current episode depressed, moderate; E66.9 Obesity, unspecified; E78.00 Pure hypercholesterolemia, unspecified; K59.00 Constipation, unspecified
CPT/HCPCS: 69210; 99396

== ENCOUNTER 2023-07-07 08:53 | Outpatient (REF) | payer OTHER, SELFPAY ==
[2023-07-07 09:20] LABS: MANUAL DIFF FLAG NO
[2023-07-07 09:56] LABS: Basophils Percent Auto 0.3 % (0-2); Eosinophils Absolute Auto 0.3 X10*3/uL (0.0-0.4); Eosinophils Percent Auto 4.2 % (0-4); Hematocrit 39.2 % (37.0-47.0); Hemoglobin 12.9 g/dl (12.0-16.0); Imm Gran Abs Auto 0.02 X10*3/uL (0.00-0.03); Imm Gran Pct Auto 0.3 % (0.0-0.4); Lymphocytes Absolute Auto 2.3 X10*3/uL (1.2-4.9); Lymphocytes Percent Auto 33.2 % (20-40); Mean Corpuscular HGB Conc 32.9 g/dl (31.0-35.0); Mean Corpuscular Hemoglobin 30.6 pg (27.0-33.0); Mean Corpuscular Volume 92.9 fL (80.0-98.0); Mean Platelet Volume 8.6 fL (9.4-12.3); Monocytes Absolute Auto 0.5 X10*3/uL (0.1-1.2); Monocytes Percent Auto 7.2 % (2-11); Neutrophils Absolute Auto 3.8 x10*3/uL (2.0-8.3); Neutrophils Percent Auto 54.8 % (45-73); Platelet Count 315 X10*3/uL (160-400); Red Blood Count 4.22 X10*6/uL (4.20-5.50); Red Cell Distribution Width 13.8 % (11.0-16.0); White Blood Count 6.9 X10*3/uL (4.8-10.8)
[2023-07-07 10:55] LABS: Alanine Aminotransferase 19 U/L (0-31); Albumin Level 3.6 g/dL (3.5-5.0); Alkaline Phosphatase 103 U/L (39-117); Anion Gap 9 (12-20); Aspartate Amino Transferase 16 U/L (5-31); Bilirubin Total 0.3 mg/dL (0.0-1.0); Blood Urea Nitrogen 21 mg/dL (9-16); Calcium 8.6 mg/dL (8.4-10.2); Carbon Dioxide 25 mmol/L (22-29); Chloride 112 mmol/L (96-108); Cholesterol 223 mg/dL (<200); Estimated Glomerular Filt Rate > 60; Glucose Random 93 mg/dL (60-115); HDL Cholesterol 53 mg/dL (>40); LDL Cholesterol Calculated 155 mg/dL (<100); Potassium 4.3 mmol/L (3.3-5.1); Sodium 142 mmol/L (135-145); Total Protein 6.9 g/dL (6.5-8.0); Triglycerides 78 mg/dL (<150)
[2023-07-07 11:06] LABS: Folate 11.9 ng/mL (> or = 4.0); Vitamin B12 1907 pg/mL (200-900)
[2023-07-07 11:31] LABS: Thyroid Stimulating Hormone 2.56 uIU/mL (0.32-4.0); Vitamin D 25-OH Total 31.2 ng/mL (>30)
[2023-07-07 12:01] LABS: Free T4 (Free Thyroxine) 0.65 ng/dL (0.71-1.85)
== END 2023-07-07 08:54 | disposition home or self-care (01) ==
LOC: HO.LAB 08:53
PROVIDERS: PCP Internal Medicine; Visit Provider Internal Medicine
DX: E78.00 Pure hypercholesterolemia, unspecified (principal); E55.9 Vitamin D deficiency, unspecified
CPT/HCPCS: 36415; 80053; 80061; 82306; 82607; 82746; 84439; 84443; 85025

== ENCOUNTER 2023-07-09 13:36 | Outpatient (REF) | payer OTHER, SELFPAY ==
--- NOTE | ~2023-07-09 | XR_ITS ---
EXAMINATION: XR FOOT, RIGHT CLINICAL INFORMATION: Pain. COMPARISON: None available. TECHNIQUE: AP, lateral, and oblique views of the right foot. FINDINGS: Bony alignment and mineralization are normal. No fracture, dislocation or right ankle joint effusion is seen. Boehler's angle is normal. There are small posterior and plantar calcaneal spurs. No abnormal bone erosion is seen. There is no focal soft tissue swelling, gas or foreign body. XR/XR foot RT min 3V IMPRESSION: There are small calcaneal spurs. Otherwise, unremarkable examination. No fracture, dislocation or joint effusion is seen. No unusual bone erosion is noted. EXAMINATION: XR FOOT, LEFT CLINICAL INFORMATION: Pain. COMPARISON: None available. TECHNIQUE: AP, lateral, and oblique views of the left foot. FINDINGS: Bony alignment and mineralization are normal. No fracture, dislocation or left ankle joint effusion is seen. Boehler's angle is normal. There are small posterior and moderate plantar calcaneal spurs. No abnormal bone erosion is seen. There is no focal soft tissue swelling, gas or foreign body. IMPRESSION: There are calcaneal spurs, as detailed. No fracture, dislocation or joint effusion is seen. No abnormal bony erosive change is noted.
--- NOTE | ~2023-07-09 | XR_ITS ---
EXAMINATION: XR HAND, RIGHT CLINICAL INFORMATION: Pain. COMPARISON: None available. TECHNIQUE: PA, lateral, and oblique views of the right hand. FINDINGS: Bony alignment and mineralization are normal. There is moderately severe osteoarthritic change of the interphalangeal joint of the thumb and of the second and third distal interphalangeal joints. There is mild osteoarthritic change of the remaining interphalangeal joints of the fingers. There is moderate osteoarthritic change of the first carpometacarpal joint. There is mild narrowing of the radiocarpal joint. No fracture or dislocation is seen. There is no abnormal bone erosion. No focal soft tissue swelling, gas or foreign body is seen. XR/XR hand RT min 3V IMPRESSION: There are multi-focal osteolytic changes of the right hand and wrist. No fracture or dislocation is seen. There is no abnormal bone erosion. EXAMINATION: XR HAND, LEFT CLINICAL INFORMATION: Pain. COMPARISON: None available. TECHNIQUE: PA, lateral, and oblique views of the left hand. FINDINGS: Bony alignment and mineralization are normal. There is mild to moderate osteoarthritic change of all 5 fingers, with some sparing of the third proximal interphalangeal joint. There is moderately severe degenerative change of the first carpometacarpal joint. There is mild narrowing of the radiocarpal joint. No fracture or dislocation is seen. There is no abnormal bone erosion. No focal soft tissue swelling, gas or foreign body is seen. IMPRESSION: There are multi-focal osteoarthritic changes of the left hand and wrist. No fracture or dislocation is seen. There is no abnormal bone erosion.
--- NOTE | ~2023-07-09 | XR_ITS ---
EXAMINATION: XR FOOT, RIGHT CLINICAL INFORMATION: Pain. COMPARISON: None available. TECHNIQUE: AP, lateral, and oblique views of the right foot. FINDINGS: Bony alignment and mineralization are normal. No fracture, dislocation or right ankle joint effusion is seen. Boehler's angle is normal. There are small posterior and plantar calcaneal spurs. No abnormal bone erosion is seen. There is no focal soft tissue swelling, gas or foreign body. XR/XR foot LT min 3V IMPRESSION: There are small calcaneal spurs. Otherwise, unremarkable examination. No fracture, dislocation or joint effusion is seen. No unusual bone erosion is noted. EXAMINATION: XR FOOT, LEFT CLINICAL INFORMATION: Pain. COMPARISON: None available. TECHNIQUE: AP, lateral, and oblique views of the left foot. FINDINGS: Bony alignment and mineralization are normal. No fracture, dislocation or left ankle joint effusion is seen. Boehler's angle is normal. There are small posterior and moderate plantar calcaneal spurs. No abnormal bone erosion is seen. There is no focal soft tissue swelling, gas or foreign body. IMPRESSION: There are calcaneal spurs, as detailed. No fracture, dislocation or joint effusion is seen. No abnormal bony erosive change is noted.
--- NOTE | ~2023-07-09 | XR_ITS ---
EXAMINATION: XR HAND, RIGHT CLINICAL INFORMATION: Pain. COMPARISON: None available. TECHNIQUE: PA, lateral, and oblique views of the right hand. FINDINGS: Bony alignment and mineralization are normal. There is moderately severe osteoarthritic change of the interphalangeal joint of the thumb and of the second and third distal interphalangeal joints. There is mild osteoarthritic change of the remaining interphalangeal joints of the fingers. There is moderate osteoarthritic change of the first carpometacarpal joint. There is mild narrowing of the radiocarpal joint. No fracture or dislocation is seen. There is no abnormal bone erosion. No focal soft tissue swelling, gas or foreign body is seen. XR/XR hand LT min 3V IMPRESSION: There are multi-focal osteolytic changes of the right hand and wrist. No fracture or dislocation is seen. There is no abnormal bone erosion. EXAMINATION: XR HAND, LEFT CLINICAL INFORMATION: Pain. COMPARISON: None available. TECHNIQUE: PA, lateral, and oblique views of the left hand. FINDINGS: Bony alignment and mineralization are normal. There is mild to moderate osteoarthritic change of all 5 fingers, with some sparing of the third proximal interphalangeal joint. There is moderately severe degenerative change of the first carpometacarpal joint. There is mild narrowing of the radiocarpal joint. No fracture or dislocation is seen. There is no abnormal bone erosion. No focal soft tissue swelling, gas or foreign body is seen. IMPRESSION: There are multi-focal osteoarthritic changes of the left hand and wrist. No fracture or dislocation is seen. There is no abnormal bone erosion.
[2023-07-09 15:44] LABS: C Reactive Protein 1.39 mg/dL (< or = 0.50)
[2023-07-09 15:51] LABS: Rheumatoid Factor < 13.0 IU/mL (<15.0)
[2023-07-09 16:09] LABS: Erythrocyte Sedimentation Rate 12 MM/HR (0-20)
[2023-07-12 14:34] LABS: Cyclic Citrullinated Peptide <16 UNITS
[2023-07-14 08:23] LABS: Anti Nuclear Antibody Screen NEGATIVE (NEGATIVE)
[2023-07-14 10:23] LABS: Antibody to SS-A Antigen <1.0 NEG AI (<1.0 NEG); Antibody to SS-B Antigen <1.0 NEG AI (<1.0 NEG); SM/Ribonucleoprotein Ab <1.0 NEG AI (<1.0 NEG); Scleroderma 70 Antibody <1.0 NEG AI (<1.0 NEG); Smith Protein <1.0 NEG AI (<1.0 NEG)
[2023-07-14 18:03] LABS: HLA B27 Negative (Negative)
== END 2023-07-09 13:37 | disposition home or self-care (01) ==
LOC: HO.XRAY 13:36
PROVIDERS: PCP Internal Medicine; Visit Provider Nurse Practitioner Family
DX: M79.641 Pain in right hand (principal); M79.642 Pain in left hand; M25.571 Pain in right ankle and joints of right foot; M25.572 Pain in left ankle and joints of left foot; L43.9 Lichen planus, unspecified; K12.39 Other oral mucositis (ulcerative); L28.0 Lichen simplex chronicus; M47.816 Spondylosis without myelopathy or radiculopathy, lumbar region; M46.1 Sacroiliitis, not elsewhere classified
CPT/HCPCS: 36415; 73130; 73630; 85652; 86038; 86140; 86200; 86235; 86431; 86812; 99212

== ENCOUNTER 2023-07-09 13:36 | Outpatient (AMB) | payer OTHER, SELFPAY ==
--- NOTE | 2023-07-09 13:38 | A.OFFVIS_ITS ---
Intake Vital Signs 07/09/23 13:51 Height 5 ft 5 in Weight 203 lb 4.259 oz BMI 33.8 BP 128/76 Blood Pressure Location Rt brachial Position Sitting Respiration 17 Pulse 86 Pulse Source Pulse Oximeter Temp 97.5 F Temp Source Skin Pulse Oximetry (%) 99 Oxygen Delivery Method Room Air Intake Visit Reasons: OA Data Security Administrator Required: No Allergies Penicillins [PENICILLINS] Allergy (Intermediate, Verified 07/09/23 13:47) HIVES latex [Latex] Allergy (Mild, Verified 07/09/23 13:47) RASH Medication List - Last Reconciled 07/09/23 by Cleo Reid, SIOBHAN albuterol sulfate 2.5 mg (3 mL) inhalation QID PRN ascorbate calcium (vitamin C) 500 mg PO DAILY clonazepam 1 mg PO BEDTIME clonazepam 0.5 mg PO DAILY PRN desvenlafaxine ER 100 mg PO DAILY fluticasone propionate 110 mcg/actuation (Flovent HFA) 2 puffs inhalation BID gabapentin 300 mg PO BEDTIME meloxicam 15 mg PO DAILY PRN multivitamin 1 tab PO DAILY oxcarbazepine 600 mg PO BID thiamine HCl (vitamin B1) 100 mg PO DAILY topiramate 25 mg PO BID Ventolin HFA 90 mcg/actuation (albuterol sulfate) 2 puffs PO Q6H PRN 30 days NS HPI HPI Comments History of Present Illness Details Mrs. Knowles 56yoF presents for follow-up of joint pain and low back pain. Last seen in April 2022. Patient's main concern today is the oral lead to noted mucositis which she has been experiencing for the last 2 years. 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 She admits to bone loss in her mouth and plan is to have bone grafting/ implants. 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 As of August 2022 is being evaluated by Pain Management for placement of spinal stimulator secondary to right sacroiliitis. Patient reports that this has been delayed due to dealing with her current oral concerns and moreover she is not sure she wants the stimulator. Prior Visit: Patient reports chronic back pain throughout the spine. She follows with pain management and previously had injections in her lower back with good effect. She states a spinal stimulator was discussed at last visit. She states that her pain is 8/9 out of 10. Her pain is most prominent in the morning and gets a little better as the day goes on. Her pain wakes her up in the second half of the night. Her pain radiates to the right buttock and around the right hip. She admits to intermittent stiffness in both hands, she has known osteoarthritis in her hands. She is taking meloxicam and gabapentin for her joint pain, she states that these help with her symptoms, she has increased pain if she does not take them. She admits to skin sensitivity, correction sleep disturbance and depression. She admits to a traumatic event in her life and her pain symptoms were increased after..She follows with psychiatry and a therapist. She is currently taking clonazepam, desvenlafaxine and oxcarbazepine. [facility] Medical History (Updated 07/13/23 @ 09:33 by ABHISHEK [facility]) Oral lichenoid mucositis Bilateral ankle pain Bilateral hand pain Observed seizure-like activity Seizure disorder Disc degeneration, lumbar Spondylosis of lumbar spine Sacroiliitis Renal calculi Peptic ulcer disease GERD (gastroesophageal reflux disease) Migraine TIA (transient ischemic attack) Bipolar disorder Obesity (BMI 30-39.9) Asthma Hypercholesterolemia Vitamin D deficiency Carpal tunnel syndrome Lumbar spondylosis Osteoarthritis of hands, bilateral Surgical History Vocal cord cyst H/O plastic surgery History of arthroscopy of right knee History of lumbar surgery History of abdominoplasty History of gastric surgery LAP-BAND surgery status History of tubal ligation History of tonsillectomy History of cholecystectomy Family History Father Throat cancer Esophageal cancer Mother Hypertension Cancer Maternal Grandmother Uterine cancer Maternal Aunt Uterine cancer Maternal Uncle Esophageal cancer Prostate cancer Social History Household Members: Spouse Housing: House Alcohol intake: never Patient Tobacco Use Status: Former Tobacco user Tobacco use type: Cigarette Years Smoked: quit 1989 e-Cigarette/Vaping Use: Never Used Second Hand Smoke Exposure: Yes service: No Current occupational status: disabled Cognitive needs: No Hearing needs: No Vision needs: Yes (reading glasses) Review of Systems Const All systems reviewed & are unremarkable except as noted in HPI and below Physical Exam Vital Signs: Last Vital Signs Temp 97.5 F 07/09/23 13:51 Pulse 86 07/09/23 13:51 Resp 17 07/09/23 13:51 BP 128/76 07/09/23 13:51 Pulse Ox 99 07/09/23 13:51 Oxygen Delivery Method Room Air 07/09/23 13:51 BMI result Body Mass Index 33.8 APPEARANCE: Patient in no acute distress EYES: no redness, pupils equal and reactive to light, eyelids normal EARS: External ear normal, canal clear and tympanic membrane normal. NOSE/SINUS: Airflow through both nares, no nasal discharge, no bleeding THROAT: Oral mucosa moist, white lesions to left upper gumline, dark pigmented lesion to right lower cheek NECK: No thyromegaly or masses, no adenopathy, trachea midline. HEART: Regular rhythm, S1-S2 heard, no murmurs, rubs or gallops. LUNG: Clear to percussion and auscultation EXTREMITIES: No edema, no calf tenderness, normal peripheral pulses. Hands: LEFT:? Normal pain-free range of motion without tenderness, swelling, increased warmth or erythema. Able to make a full fist and has a good pediatric critical care nurse strength. RIGHT: Normal pain-free range of motion without tenderness, swelling, increased warmth or erythema. Able to make a full fist and has a good pediatric critical care nurse strength. Heberden's nodes 2nd and 3rd digit. Wrists:? Normal pain-free range of motion without tenderness, swelling, increased warmth or erythema. Elbows: Normal pain-free range of motion without tenderness, swelling, increased warmth or erythema. Shoulders: LEFT:?? Full range of motion without pain. No tenderness, weakness, swelling, increased warmth or erythema. RIGHT: Full range of motion, pain with flexion and abduction. Tenderness to palpation over the AC joint and at the bicipital groove. No weakness, swelling, increased warmth or erythema. Hip bursa:? No tenderness. Knees:? Normal pain-free range of motion without tenderness, swelling, increased warmth or erythema.? There is no effusion or crepitation Ankles: Normal pain-free range of motion without tenderness, swelling, increased warmth or erythema. Feet: LEFT: Normal pain-free range of motion without tenderness, swelling, increased warmth or erythema. Cock-up deformity of the 2nd toe consistent with hammertoe. RIGHT: Normal pain-free range of motion without tenderness, swelling, increased warmth or erythema. Cock-up deformity of the 2nd toe consistent with hammertoe. Tender points:? Tenderness to digital palpation at the occiput, trapezius, second rib, lateral epicondyle, knees, greater trochanter and gluteal area bilaterally. Results Reviewed Results Reviewed: 09/19/22 Oral Pathology Report Assessment & Plan Assessment & Plan (1) Oral lichenoid mucositis: Code(s): K12.39 - Other oral mucositis (ulcerative); L28.0 - Lichen simplex chronicus (2) Spondylosis of lumbar spine: Code(s): M47.816 - Spondylosis without myelopathy or radiculopathy, lumbar region Plan: Patient with chronic low back pain. On exam she has tenderness to palpation over the lumbar spine and pain with range of motion. No sacroiliac tenderness noted on exam today. Patient's pain radiates into the right buttock only. Previous inflammatory markers were negative, previous x-ray of the lumbar spine with mild lumbar scoliosis and multilevel degenerative changes. Recommend patient follow-up with pain management. Will continue gabapentin. (3) Sacroiliitis: Code(s): M46.1 - Sacroiliitis, not elsewhere classified Plan #Oral Lichinoid Mucositis: Mrs. Knowles 14-year-old female, is being followed by her oral surgeon. Her next visit with the oral surgeon is to be scheduled as patient reports that her dentist has stated he see something that is a dditionally concerning. I gave her some clobetasol for the oral lesions today, it seems reasonable as she is having discomfort eating. Oral Lichinoid Mucositis can exist in the content of certain CTD/autoimmune process such as scleroderma, Sjogren lupus, rheumatoid arthritis. Therefore I will obtain updated lab work to evaluate further given that these lesions have started to occur within the last 2 years per patient. #Lumbar spondylosis/Sacroilitis: I encouraged patient to follow-up with pain management to evaluate getting the neuromodulator that was propose. She has received injection in the past for left SI joint for sacroiliitis and osteitis pubis. While Sacroiliitis can be due to mechanical reasons, it can also be symptom presentation of a spondyloarthropathy(SpA), and therefore an autoimmune process. Additionally, patient has DIPs features that can be associated with SpA and so the deformity of her DIPs may be more than regular osteoarthritis. Given these observations, we could consider to start an immunmodulator. However, due to the uncertainty of the nature(malignancy or benign) of the oral lesions, it would not be advisable to start an immunosuppressant regimen at this time. I will obtain x-rays of her hands and her feet to evaluate for possible erosions and SpA features. Additionally I will obtain updated lab work Orders: Orders VALENTÍN Reflex Titer and Pattern 07/09/23 L43.9 - Lichen planus, unspecified Cyclic Citrullinated Peptide 07/09/23 M79.641 - Pain in right hand, M79.642 - Pain in left hand XR hand RT min 3V 07/09/23 M79.641 - Pain in right hand, M79.642 - Pain in left hand XR hand LT min 3V 07/09/23 M79.641 - Pain in right hand, M79.642 - Pain in left hand HLA B27 07/09/23 M25.571 - Pain in right ankle and joints of right foot, M25.572 - Pain in left ankle and joints of left foot, M79.641 - Pain in right hand, M79.642 - Pain in left hand Anti Extractable Nuclear Ag 07/09/23 L43.9 - Lichen planus, unspecified C Reactive Protein 07/09/23 L43.9 - Lichen planus, unspecified Erythrocyte Sedimentation Rate 07/09/23 L43.9 - Lichen planus, unspecified Scleroderma 70 Antibody 07/09/23 L43.9 - Lichen planus, unspecified Sjogren's Antibodies 07/09/23 L43.9 - Lichen planus, unspecified Rheumatoid Factor 07/09/23 M79.641 - Pain in right hand, M79.642 - Pain in left hand XR foot LT min 3V 07/09/23 M25.571 - Pain in right ankle and joints of right foot, M25.572 - Pain in left ankle and joints of left foot, M79.641 - Pain in right hand, M79.642 - Pain in left hand XR foot RT min 3V 07/09/23 M25.571 - Pain in right ankle and joints of right foot, M25.572 - Pain in left ankle and joints of left foot Medications: New clobetasol 0.05% Oral Lichen Planus 1 appl topical BID 30 grams 0RF L43.9 - Lichen planus, unspecified Coding Level of Care Code Est Pt Level 4 (35889) Diagnoses Oral lichenoid mucositis K12.39; L28.0 Spondylosis of lumbar spine M47.816 Sacroiliitis M46.1
[2023-07-09 13:51] VITALS: BP 128/76; PULSE 86; RESP 17; TEMP 36.4; O2SAT 99; BMI 33.8
== END 2023-07-09 14:40 | disposition home or self-care (01) ==
PROVIDERS: PCP Internal Medicine; Visit Provider Nurse Practitioner Family
DX: K12.39 Other oral mucositis (ulcerative) (principal); L28.0 Lichen simplex chronicus; M47.816 Spondylosis without myelopathy or radiculopathy, lumbar region; M46.1 Sacroiliitis, not elsewhere classified
CPT/HCPCS: 99214

== ENCOUNTER 2023-09-20 09:22 | Outpatient (AMB) | payer OTHER, SELFPAY ==
--- NOTE | 2023-09-20 09:23 | A.OFFPC_ITS ---
Vital Signs 09/20/23 09:24 Height 5 ft 5 in Weight 192 lb 0.4 oz BMI 32.0 BP 146/82 H Blood Pressure Location Lt brachial Position Sitting Pulse 84 Pulse Source Pulse Oximeter Pulse Oximetry (%) 98 Oxygen Delivery Method Room Air Intake Visit Reasons: 3 month f/u ( rescheduled) Intake Note: Patient is here to follow up on 3 months Water Rights Specialist Required: No Allergies Penicillins [PENICILLINS] Allergy (Intermediate, Verified 09/20/23 09:24) HIVES latex [Latex] Allergy (Mild, Verified 09/20/23 09:24) RASH Medication List - Last Reconciled 09/20/23 by Jas Tellez MD albuterol sulfate 2.5 mg (3 mL) inhalation QID PRN ascorbate calcium (vitamin C) 500 mg PO DAILY clobetasol 0.05% 1 appl topical BID clonazepam 1 mg PO BEDTIME clonazepam 0.5 mg PO DAILY PRN desvenlafaxine ER 100 mg PO DAILY fluticasone propionate 110 mcg/actuation (Flovent HFA) 2 puffs inhalation BID gabapentin 300 mg PO BEDTIME meloxicam 15 mg PO DAILY PRN multivitamin 1 tab PO DAILY oxcarbazepine 600 mg PO BID thiamine HCl (vitamin B1) 100 mg PO DAILY topiramate 25 mg PO BID Ventolin HFA 90 mcg/actuation (albuterol sulfate) 2 puffs PO Q6H PRN 30 days NS Tobacco use date assessed: 09/20/23 Dental Screening Dental Screen Date: 09/20/23 Did you have a dental visit in the last 12 months?: Yes Did you have a dental problem in the last 6 months where you did not have access to dental care?: No Was dental information given to patient?: Patient has dentist HPI 3 month f/u ( rescheduled) HPI Details 58-year-old obese female(noted 11 lb mandy ght loss) with a history of bipolar disorder migraine GERD hypercholesterolemia coming in for follow-up. Last seen in February 2023. Patient is due for colonoscopy this year mammograms up-to-date. Review of the notes seen by Rheumatology July 2023 diagnosis of 0 OA and lumbar spondylosis with chronic low back pain if with pain recommend pain management patient also has some oral lichenoid mucositis and was advised to follow up with the surgeon [facility] Medical History (Updated 09/20/23 @ 09:41 by Jas Tellez MD) Oral lichenoid mucositis Bilateral ankle pain Bilateral hand pain Observed seizure-like activity Seizure disorder Disc degeneration, lumbar Spondylosis of lumbar spine Sacroiliitis Renal calculi Peptic ulcer disease GERD (gastroesophageal reflux disease) Migraine TIA (transient ischemic attack) Bipolar disorder Obesity (BMI 30-39.9) Asthma Hypercholesterolemia Vitamin D deficiency Carpal tunnel syndrome Lumbar spondylosis Osteoarthritis of hands, bilateral Surgical History Vocal cord cyst H/O plastic surgery History of arthroscopy of right knee History of lumbar surgery History of abdominoplasty History of gastric surgery LAP-BAND surgery status History of tubal ligation History of tonsillectomy History of cholecystectomy Family History Father Throat cancer Esophageal cancer Mother Hypertension Cancer Maternal Grandmother Uterine cancer Maternal Aunt Uterine cancer Maternal Uncle Esophageal cancer Prostate cancer Social History Household Members: Spouse Housing: House Alcohol intake: never Patient Tobacco Use Status: Former Tobacco user Tobacco use type: Cigarette Years Smoked: 1989 e-Cigarette/Vaping Use: Never Used Second Hand Smoke Exposure: Yes service: No Current occupational status: disabled Cognitive needs: No Hearing needs: No Vision needs: Yes (reading glasses) Questionnaire PHQ-9 Over the last 2 weeks, how often have you been bothered by any of the following problems? 1. Little interest or pleasure in doing things: not at all 2. Feeling down, depressed, or hopeless: not at all 3. Trouble falling or staying asleep, or sleeping too much: not at all 4. Feeling tired or having little energy: not at all 5. Poor appetite or overeating: not at all 6. Feeling bad about yourself - or that you are a failure or have let yourself or your family down: not at all 7. Trouble concentrating on things, such as reading the newspaper or watching television: not at all 8. Moving or speaking so slowly that other people could have noticed. Or the opposite - being so fidgety or restless that you have been moving around a lot more than usual: not at all 9. Thoughts that you would be better off or of hurting yourself in some way : not at all Total score: 0 Depression Screening Interpretation: Negative Depression Screening Done: Yes Source: Developed by Drs. Juma Mckinley, Lani Chen, Vinny Beltrán and colleagues, with an educational shiraz from [employer]. Thrive Questionnaire Date Thrive assessed: 09/20/23 I am a: Patient What is your living situation today?: I have a steady place to live Within the past 12 months, did the food you bought not last and you didn't have the money to get more?: Never true Within the past 12 months, did you worry whether your food would run out before you got money to buy more?: Never true Do you have trouble paying for medicines?: No Do you have trouble getting transportation to medical appointments?: No Do you have trouble paying your heating and electricity bill?: No Do you have trouble taking care of your child, family member or friend?: No Do you have trouble with day-to-day activities such as bathing, preparing meals, shopping, managing finances, etc.?: No Are you currently unemployed and looking for a job?: No Are you interested in more education?: No Please select the resources that you would like help with: None THRIVE Score: 0 AUDIT C Alcohol Use Questionnaire (AUDIT-C) 1. How often do you have a drink containing alcohol?: Never 2. How many drinks containing alcohol do you have on a typical day when you are drinking?: 1 or 2 (0) 3. How often do you have six or more drinks on one occasion?: Never Total Score: 0 PEPE-7 AMB Questionnaire PEPE-7 Date PEPE - 7 assessed: 09/20/23 Source: Developed by Drs. Juma Mckinley, Lani Chen, Vinny Beltrán and colleagues, with an educational shiraz from [employer]. Physical exam (Primary Care) Vital Signs: Last Vital Signs Pulse 84 09/20/23 09:24 BP 146/82 H 09/20/23 09:24 Pulse Ox 98 09/20/23 09:24 Oxygen Delivery Method Room Air 09/20/23 09:24 BMI result Body Mass Index 32.0 Tobacco/Smoking Status: Tobacco use Status Tobacco use date assessed 09/20/23 09/20/23 09:29 Patient Tobacco Use Status Former Tobacco user 09/20/23 09:29 Tobacco use type Cigarette 09/20/23 09:29 e-Cigarette/Vaping Use Never Used 09/20/23 09:29 PHQ-9: PHQ-9 Score PHQ-9: Total score 0 09/20/23 09:30 Depression Screening Interpretation: Negative Thrive Assessment: Date of Thrive Assessment Date Thrive assessed 09/20/23 09/20/23 09:29 Const General: alert; No acute distress Eyes Conjunctivae: conjunctivae normal Resp Auscultation: clear to auscultation bilaterally Cardio Rate: regular rate Rhythm: regular rhythm GI Inspection: Yes normal to inspection Extrem General: Yes normal to inspection and No edema Assessment and Plan Assessment & Plan (1) Oral lichenoid mucositis: Code(s): K12.39 - Other oral mucositis (ulcerative); L28.0 - Lichen simplex chronicus Plan: Patient has been advised to follow-up with the oral surgeon (2) GERD (gastroesophageal reflux disease): Comment: December 2019 Code(s): K21.9 - Gastro-esophageal reflux disease without esophagitis Qualifiers: Esophagitis presence: without esophagitis Qualified Code(s): K21.9 - Gastro-esophageal reflux disease without esophagitis Plan: Avoid the foods that causes that usually spicy foods, tomato products, juices, coffee, soda and foods that your sensitive to. After eating do not lie down, allow 3-4 hours before in lie down. And keep the head of bed above 30 degrees to avoid the acid from going up. (3) Migraine: Comment: 48 hour EEG negative March 2019 Code(s): G43.909 - Migraine, unspecified, not intractable, without status migrainosus Qualifiers: Migraine type: with aura Status migrainosus presence: without status migrainosus Intractability: not intractable Qualified Code(s): G43.109 - Migraine with aura, not intractable, without status migrainosus Plan: Continue with migraine treatment (4) Bipolar disorder: Comment: [place] Code(s): F31.9 - Bipolar disorder, unspecified Qualifiers: Active/Remission status: currently active Current bipolar episode type: depressed Current episode severity: moderate Qualified Code(s): F31.32 - Bipolar disorder, current episode depressed, moderate Plan: Continue with counseling and therapy (5) Obesity (BMI 30-39.9): Code(s): E66.9 - Obesity, unspecified Plan: Noted weight loss! Diet and exercise (6) Hypercholesterolemia: Code(s): E78.00 - Pure hypercholesterolemia, unspecified Plan: June 2023 last blood work. Avoid fried foods, chicken skin, eggs, butter margarine, pastries and meat. Be it pork or beef they have a lot of cholesterol (7) Colon cancer screening: Code(s): Z12.11 - Encounter for screening for malignant neoplasm of colon Plan: Reminded patient about colonoscopy. (8) Spondylosis of lumbar spine: Code(s): M47.816 - Spondylosis without myelopathy or radiculopathy, lumbar region Plan: Patient has been advised pain management Orders: Orders Comprehensive Met. Panel 3 Months E78.00 - Pure hypercholesterolemia, unspecified Lipid Panel 3 Months E78.00 - Pure hypercholesterolemia, unspecified Coding Level of Care Code Est Pt Level 4 (38869) Diagnoses Oral lichenoid mucositis K12.39; L28.0 Gastroesophageal reflux disease without esophagitis K21.9 Esophagitis presence: without esophagitis Migraine with aura and without status migrainosus, not intractable G43.109 Migraine type: with aura Status migrainosus presence: without status migrainosus Intractability: not intractable Bipolar affective disorder, currently depressed, moderate F31.32 Active/Remission status: currently active Current bipolar episode type: depressed Current episode severity: moderate Obesity (BMI 30-39.9) E66.9 Hypercholesterolemia E78.00 Colon cancer screening Z12.11 Spondylosis of lumbar spine M47.816
[2023-09-20 09:24] VITALS: BP 146/82; PULSE 84; O2SAT 98; BMI 32.0
== END 2023-09-20 09:53 | disposition home or self-care (01) ==
PROVIDERS: PCP Internal Medicine; Visit Provider Internal Medicine
DX: K21.9 Gastro-esophageal reflux disease without esophagitis (principal); K12.39 Other oral mucositis (ulcerative); L28.0 Lichen simplex chronicus; F31.32 Bipolar disorder, current episode depressed, moderate; E66.9 Obesity, unspecified; G43.109 Migraine with aura, not intractable, without status migrainosus; E78.00 Pure hypercholesterolemia, unspecified; Z12.11 Encounter for screening for malignant neoplasm of colon; M47.816 Spondylosis without myelopathy or radiculopathy, lumbar region
CPT/HCPCS: 99214

== ENCOUNTER → 2023-10-13 09:45 | Outpatient (REF) | payer OTHER, SELFPAY ==
[2023-10-13 11:18] LABS: Alanine Aminotransferase 12 U/L (0-31); Albumin Level 3.8 g/dL (3.5-5.0); Alkaline Phosphatase 104 U/L (39-117); Anion Gap 8 (12-20); Aspartate Amino Transferase 13 U/L (5-31); Bilirubin Total 0.3 mg/dL (0.0-1.0); Blood Urea Nitrogen 16 mg/dL (9-16); Calcium 8.7 mg/dL (8.4-10.2); Carbon Dioxide 27 mmol/L (22-29); Chloride 110 mmol/L (96-108); Cholesterol 196 mg/dL (<200); Estimated Glomerular Filt Rate > 60; Glucose Random 88 mg/dL (60-115); HDL Cholesterol 48 mg/dL (>40); LDL Cholesterol Calculated 131 mg/dL (<100); Potassium 4.3 mmol/L (3.3-5.1); Sodium 141 mmol/L (135-145); Total Protein 6.9 g/dL (6.5-8.0); Triglycerides 86 mg/dL (<150)
--- NOTE | 2023-10-13 12:46 | CA_ITS ---
Transthoracic Echocardiogram Patient (Last, First, Middle): Eleni Asher, Gender: Female Date of : 1965 Age: 58 Procedure Date: 10/13/2023 Procedure Type: Transthoracic Echocardiogram Location: OP Height: 160.02 cm Weight: 87.54 kg BSA: 1.90 m2 Heart Rate: bpm BP: 118 / 70 mmHg Concrete Truck Driver: ROBYN Referring MD: Jas Tellez MD Production Metal Sprayer: Tim Norwood MD Symptoms: I44.7 - Left bundle-branch block, unspecified Study Quality: Adequate ECG Rhythm: Sinus Conclusions: - 1. Low normal LV ejection fraction 50-55% with impaired relaxation filling pattern 2. Cardiac valvular Dopplers within normal limits 3. Normal RV systolic pressure 4. No gross pericardial effusion Findings Left Ventricle Normal left ventricular cavity size. There is normal left ventricular wall thickness. The left ventricular systolic function is low normal. The visually estimated ejection fraction is between 50-55%. There is paradoxical septal motion consistent with a left bundle branch block. Spectral Doppler is indicative of an impaired relaxation filling pattern. E/E prime ratio is between 8 and 15 consistent with indeterminate filling pressures. Peak GLS is -17.2%, which is borderline low. Right Ventricle Normal right ventricular cavity size and systolic function. Atria The left atrium is likely dilated. There is no evidence of interatrial shunt. The right atrium is normal in size. Aortic Valve Normal aortic valve structure and function. There is no aortic valve stenosis. There is no aortic valve regurgitation. Mitral Valve There is mild anterior and posterior mitral leaflet thickening. There is mild mitral annular calcification. There is trace mitral valve regurgitation. There is no mitral valve stenosis. Pulmonic Valve The pulmonic valve was not well visualized. Tricuspid Valve Normal tricuspid valve structure. There is mild tricuspid valve regurgitation. The right ventricular systolic pressure is normal. The right ventricular systolic pressure is 27 mmHg. Normal right atrial pressure. There is no evidence of pulmonary hypertension. Great Vessels The pulmonary artery was not well visualized. There is no dilatation of the aortic arch measuring 3.00 cm. Venous The inferior vena cava is normal in size and collapses greater than 50% with inspiration. Pericardium/Pleural There is no evidence of pericardial effusion. Prior Study Comparison No prior study available for comparison. no previous study in the last 5 years for comparison Measurements 2D Linear Measurements IVSd: 0.92 0.6-0.9/0.6-1.0 cm LVIDd: 4.64 3.9-5.3/4.2-5.9 cm LVIDd Index: 2.44 2.4-3.2/2.2-3.1 cm/m2 LVIDs: 2.98 2.0-3.6 cm LVPWd: 1.04 0.7-1.1 cm LA Diam: 3.50 2.7-3.8/3.0-4.0 cm LAIDs Index: 1.84 1.5-2.3 cm/m2 LV Mass: 195.51 67-162/88-224 g LV Mass Index: 102.90 43-95/49-115 g/m2 LVOT Diam: 2.10 3.0+(-)1.3 cm 2D Systolic Function EF 4C: 53.20 >55% EF 2C: 53.10 >55% EF BiP: 51.70 >55% Mitral Valve MV Pk E: 1.04 MV PK A: 1.14 MV Decel Time: 141.00 E/A: 0.90 E'Lateral: 7.29 E'Medial: 6.20 E/E' Med: 16.80 E/E' Lat: 14.30 PHT: 41.00 MVA PHT: 5.37 Decel [place]: 7.35 Aortic Valve AoV Pk Eusebio: 1.58 AoV Mn Eusebio: 1.05 AoV VTI: 0.33 AoV Pk Grad: 10.00 Aov Mn Grad: 5.00 BENY Cont.VTI: 2.60 LVOT LVOT Pk Eusebio: 1.23 LVOT Mn Eusebio: 0.82 LVOT VTI: 0.25 LVOT Pk Grad: 6.00 LVOT Mn Grad: 3.00 LVOT Diam: 2.10 LVOT Area: 3.46 Diastolic Function MV Pk E: 1.04 MV Pk A: 1.14 E/A: 0.90 E'Medial: 6.20 E/E' Med: 16.80 E' Laterial: 7.29 E/E' Lat: 14.30 Right Ventricle TAPSE (mm): 25.80 TVS' Eusebio: 11.10 Tricuspid Valve TR Pk Eusebio: 2.43 TR Pk Grad: 24.00 RA Press: 3.00 RVSP: 27.00 Great Vessels Aorta Sinus of Valsalva: 3.12 2.0-3.[address] [place]: 2.36 1.7-3.4 cm Ao Asc: 2.90 2.1-3.4 cm Ao Arch: 3.00 Updated in Other Vendor System with Status of Final Tim Norwood MD electronically signed on 10/13/2023 3:34:25 PM with status of Final
== END ==
LOC: HO.CARD 09:45
PROVIDERS: PCP Internal Medicine; Visit Provider Internal Medicine
DX: I44.7 Left bundle-branch block, unspecified (principal); E78.00 Pure hypercholesterolemia, unspecified
CPT/HCPCS: 36415; 80053; 80061; 93306; 93356

== ENCOUNTER → 2023-10-13 12:46 | Outpatient (BNV) | payer OTHER, SELFPAY | PROVIDERS: PCP Internal Medicine; Visit Provider Internal Medicine Cardiovascular Disease | DX: I34.81 Nonrheumatic mitral (valve) annulus calcification (principal); I36.1 Nonrheumatic tricuspid (valve) insufficiency | CPT/HCPCS: 93306 ==

== ENCOUNTER 2023-11-22 14:37 | Outpatient (AMB) | payer OTHER, SELFPAY ==
--- NOTE | 2023-11-22 14:54 | A.OFFPC_ITS ---
Vital Signs 3 11/22/23 14:54 Height 5 ft 5 in Blood Pressure Location Lt brachial Position Sitting Pulse Source Pulse Oximeter Oxygen Delivery Method Room Air Intake Visit Reasons: hives Intake Note: Dr. Tellez's patient is presenting with hives around the neck area, spreading to the back and right arm, accompanied by sensitivity and difficulty moving the neck for the past four days. The patient has been taking Benadryl for a possible allergic reaction, but it doesn't seem to be effective. There's a possibility of a shingles flare-up, as the affected area is red and warm to the touch. The patient denies experiencing any itchiness. 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 She has noted a rash over neck over the last 3 days. She reports the rash is very painful, burning in sensation. She has some what difficulty with moving her neck. The rash appears to be spreading over the anterior aspect of the neck and right shoulder. Has not cross the midline of her body. She does admit to getting a shingles vaccine though only had gotten 1 vaccine in the 2 shot series. [facility] Medical History (Updated 11/22/23 @ 15:22 by Prince Goodman PA-C) Oral lichenoid mucositis Bilateral ankle pain Bilateral hand pain Observed seizure-like activity Seizure disorder Disc degeneration, lumbar Spondylosis of lumbar spine Sacroiliitis Renal calculi Peptic ulcer disease GERD (gastroesophageal reflux disease) Migraine TIA (transient ischemic attack) Bipolar disorder Obesity (BMI 30-39.9) Asthma Hypercholesterolemia Vitamin D deficiency Carpal tunnel syndrome Lumbar spondylosis Osteoarthritis of hands, bilateral Surgical History Vocal cord cyst H/O plastic surgery History of arthroscopy of right knee History of lumbar surgery History of abdominoplasty History of gastric surgery LAP-BAND surgery status History of tubal ligation History of tonsillectomy History of cholecystectomy Family History Father Throat cancer Esophageal cancer Mother Hypertension Cancer Maternal Grandmother Uterine cancer Maternal Aunt Uterine cancer Maternal Uncle Esophageal cancer Prostate cancer Social History Household Members: Spouse Housing: House Alcohol intake: never Patient Tobacco Use Status: Former Tobacco user Tobacco use type: Cigarette Years Smoked: quit 1989 e-Cigarette/Vaping Use: Never Used Second Hand Smoke Exposure: Yes service: No Current occupational status: disabled Cognitive needs: No Hearing needs: No Vision needs: Yes (reading glasses) Questionnaire Thrive Questionnaire Date Thrive assessed: 09/20/23 PEPE-7 AMB Questionnaire PEPE-7 Date PEPE - 7 assessed: 09/20/23 Source: Developed by Drs. Juma Mckinley, Lani Chen, Vinny Beltrán and colleagues, with an educational shiraz from [email or web address]. Review of Systems Const Denies headache(s) Eyes Denies loss of vision ENT Denies vertigo, Denies dizziness, Denies headache(s) and Denies sore throat Card Denies chest pain, Denies leg edema and Denies lightheadedness Resp Denies cough, Denies hemoptysis and Denies wheezing GI Denies abdominal pain, Denies melena, Denies constipation, Denies diarrhea and Denies vomiting Denies urinary frequency, Denies dysuria and Denies urinary urgency Musc Denies arthralgias, Denies joint swelling, Denies numbness and Denies tingling Neuro Denies Abnormal speech present, Denies behavioral changes, Denies vertigo, Denies dizziness, Denies headache(s), Denies loss of vision, Denies memory loss, Denies numbness and Denies tingling Psych Denies anxiety, Denies behavioral changes, Denies depression, Denies memory loss and Denies panic attacks Mohinder/Lymph Denies easy bleeding and Denies easy bruising Aller/Immun Denies wheezing Physical exam (Primary Care) Vital Signs: Oxygen Delivery Method Room Air 11/22/23 14:54 Tobacco/Smoking Status: Tobacco use Status Tobacco use date assessed 09/20/23 11/22/23 15:07 Patient Tobacco Use Status Former Tobacco user 11/22/23 15:07 Tobacco use type Cigarette 11/22/23 15:07 e-Cigarette/Vaping Use Never Used 11/22/23 15:07 Thrive Assessment: Date of Thrive Assessment Date Thrive assessed 09/20/23 11/22/23 15:07 Const General: healthy appearing, no acute distress, alert and awake Nutritional Appearance: well nourished Orientation/consciousness: oriented to person, oriented to place and oriented to time HENMT Ears: TM's normal bilaterally General nose exam: Normal nasal mucous membranes and turbinates present Face images: 2 1. HERPETIC ZOSTER TYPE RASH, GROUP VESICULAR LESIONS IN THE AREA OUTLINED. Eyes Conjunctivae: conjunctivae normal Sclerae: sclerae normal Pupils: Equal, round and reactive pupils present Neck Neck: Yes no lymphadenopathy and Yes no JVD Thyroid: Thyroid normal Carotids: no bruits Resp Effort & Inspection: normal respiratory effort and not tachypneic Auscultation: no crackles, no rales, no rhonchi and no wheezes Cardio Rate: regular rate Rhythm: regular rhythm Heart sounds: no murmurs and normal S1 and S2 GI Palpation (GI): Soft to palpation, nontender, no hepatomegaly and no splenomegaly Auscultation: normal bowel sounds Skin Other: GROUPED VESICULAR ERYTHEMATOUS RASH OVER RIGHT SIDE NECK AND RIGHT SHOULDER. General skin exam: dry skin Neuro General: oriented to person, oriented to place and oriented to time Cranial nerves: Yes Equal, round and reactive pupils present Speech: No Abnormal speech present Gait exam (Neuro): Normal gait present Motor exam (neuro): no tremor noted Extrem Right upper extremity: full ROM Left upper extremity: full ROM Right lower extremity: full ROM; no edema Left lower extremity: full ROM; no edema Psych Mental Status: mental status grossly normal Speech and movement: Normal speech and movement present Affect: normal affect Attitude: cooperative Thought process: Normal thought process present Assessment and Plan Assessment & Plan (1) Herpes zoster: Code(s): B02.9 - Zoster without complications Qualifiers: Herpes zoster complications: unspecified herpes zoster complication Q ualified Code(s): B02.8 - Zoster with other complications Plan: Patient's rash most consistent with herpes zoster. Will increase her gabapentin dose to 300 t.i.d for the time being.. Will start Valtrex JOSE. Gave instructions on refraining from contact with infants and elderly. Advised on trying capsaicin or lidocaine topical ointment. Medications: New 2 valacyclovir (Valtrex) 1,000 mg PO Q8H 21 tabs 0RF 7 days B02.8 - Zoster with other complications Changed 2 From gabapentin 300 mg PO BEDTIME 30 caps 1RF B02.8 - Zoster with other complications To gabapentin 300 mg PO TID 45 caps 1RF 15 days B02.8 - Zoster with other complications Coding Level of Care Code Est Pt Level 3 (52314) Diagnoses Herpes zoster with complication B02.8 Herpes zoster complications: unspecified herpes zoster complication
== END 2023-11-22 15:34 | disposition home or self-care (01) ==
PROVIDERS: PCP Internal Medicine; Visit Provider Physician Assistant
DX: B02.8 Zoster with other complications (principal)
CPT/HCPCS: 99213

== ENCOUNTER 2023-12-06 13:11 | Emergency (ER) | payer OTHER, SELFPAY ==
[2023-12-06 13:30] VITALS: BP 147/68; PULSE 76; RESP 18; TEMP 36.8; O2SAT 98; BMI 33.1
--- NOTE | 2023-12-06 13:30 | ED_ITS ---
HPI - General Adult General Chief complaint: Skin/Abscess/Foreign Body Stated complaint: Needs IV antibiotics? Shingles Time Seen by Provider: 12/06/23 19:49 Source: patient Mode of arrival: ambulatory Limitations: no limitations History of Present Illness HPI narrative: Patient is a 58 year old assigned female at with a history of bipolar disorder and recent diagnosis of shingles presenting to the emergency department today with possible infection of shingles lesions. Patient states that she saw her PCP for the shingles outbreak to the right side of her neck. Patient states that she is concerned there is a superimposed infection and her PCP recommended she come to the ER for IV antibiotics. Patient denies any dizziness, lightheadedness, abdominal pain, nausea, vomiting, fever, chills, blurry vision, double vision, loss of vision, chest pain, difficulty breathing, shortness of breath, back pain, night sweats, pain with urination, increased urinary frequency, increased urinary urgency, blood in her urine or stool, syncope or a near syncopal episode, recent trauma or falls, bowel incontinence, bladder incontinence, bowel retention, bladder retention, or any other complaints at this time. Onset (ago): day(s) Location: neck and right Severity: mild Severity scale (1-10): 4 Quality: burning Pain Consistency: constant Relieving factors: none Exacerbating factors: none Associated symptoms: rash Treatments prior to arrival: other (valtrex, gabapentin) Related Data Home Medications ?Medication ?Instructions ?Recorded ?Confirmed ascorbate calcium (vitamin C) 500 500 mg PO DAILY 05/28/20 09/20/23 mg tablet clonazepam 0.5 mg tablet 0.5 mg PO DAILY PRN Anxiety 05/28/20 09/20/23 multivitamin 1 tab PO DAILY 05/28/20 09/20/23 thiamine HCl (vitamin B1) 100 mg 100 mg PO DAILY 05/28/20 09/20/23 tablet clonazepam 1 mg tablet 1 mg PO BEDTIME 02/08/23 09/20/23 Previous Rx's ?Medication ?Instructions ?Recorded desvenlafaxine 100 mg 100 mg PO DAILY #30 tabs 02/26/22 tablet,extended release 24 hr oxcarbazepine 600 mg tablet 600 mg PO BID #60 tabs 02/26/22 albuterol sulfate 2.5 mg/3 mL 2.5 mg (3 mL) inhalation QID PRN 11/05/22 (0.083 %) solution for nebulization shortness of breath or wheezing #180 mL meloxicam 15 mg tablet 15 mg PO DAILY PRN for pain #90 05/25/23 tabs clobetasol 0.05 % topical cream 1 appl topical BID #30 grams 07/09/23 fluticasone propionate 110 2 puff inhalation BID #12 grams 07/22/23 mcg/actuation HFA aerosol inhaler (Flovent HFA) topiramate 25 mg tablet 25 mg PO BID #180 tabs 07/22/23 gabapentin 300 mg capsule 300 mg PO TID 15 days #45 caps 11/22/23 valacyclovir 1 gram tablet 1,000 mg PO Q8H 7 days #21 tabs 11/22/23 (Valtrex) Ventolin HFA 90 mcg/actuation 2 puff PO Q6H PRN for muscle spasm 11/23/23 aerosol inhaler (albuterol sulfate) 30 days #8 grams cephalexin 500 mg capsule 500 mg PO Q6H 7 days #28 caps 12/06/23 prednisone 20 mg tablet 20 mg PO DAILY 7 days #7 tabs 12/06/23 Allergies Allergy/AdvReac Type Severity Reaction Status Date / Time Penicillins [PENICILLINS] Allergy Intermediate HIVES Verified 12/06/23 13:34 latex [Latex] Allergy Mild RASH Verified 12/06/23 13:34 Review of Systems 2 Constitutional: Constitutional: Reports no additional constitutional complaints, Denies chills, Denies fever(s) and Denies night sweats Eyes: Eyes: Reports no additional eye complaints, Denies blurry vision, Denies change in vision, Denies diplopia, Denies eye discharge, Denies loss of vision and Denies eye pain ENT: Denies dizziness Comments: shingles outbreak to right neck Cardiovascular: Cardiovascular: Reports no additional cardiovascular complaints, Denies chest pain, Denies lightheadedness, Denies Loss of Consciousness and Denies dyspnea Respiratory: Respiratory: Reports no additional respiratory complaints and Denies dyspnea Gastrointestinal: Gastrointestinal: Reports no additional gastrointestinal complaints, Denies abdominal pain, Denies melena, Denies hematochezia, Denies change in bowel habits and Denies change in stool character Genitourinary: Genitourinary: Denies hematuria, Denies urinary frequency, Denies dysuria, Denies urinary incontinence, Denies urinary hesitancy and Denies urinary urgency Musculoskeletal: Musculoskeletal: Reports no additional musculoskeletal complaints, Denies numbness and Denies tingling Neurologic: Denies dizziness, Denies loss of vision, Denies numbness and Denies tingling Psychiatric: Psychiatric: Reports no additional psychiatric complaints Endocrine: Endocrine: Reports no additional endocrine complaints Hematologic/Lymphatic: Hematologic/Lymphatic: Reports no additional hematologic/lymphatic complaints Allergic/Immunologic: Allergic/Immunologic: Reports no additional allergic/immunologic complaints [facility] Past Medical History Attestation statement: The following information was validated with the patient. Source: old records reviewed and nursing notes reviewed Medical History Obesity (BMI 30-39.9) Annual physical exam Cervical cancer screening Constipation Seizure-like activity Impacted cerumen of right ear Bilateral hand pain Bilateral ankle pain Colon cancer screening Oral lichenoid mucositis Observed seizure-like activity Seizure disorder Disc degeneration, lumbar Spondylosis of lumbar spine Sacroiliitis Renal calculi Peptic ulcer disease GERD (gastroesophageal reflux disease) Migraine TIA (transient ischemic attack) Bipolar disorder Asthma Hypercholesterolemia Vitamin D deficiency Carpal tunnel syndrome Lumbar spondylosis Osteoarthritis of hands, bilateral Surgical History Vocal cord cyst H/O plastic surgery History of arthroscopy of right knee History of lumbar surgery History of abdominoplasty History of gastric surgery LAP-BAND surgery status History of tubal ligation History of tonsillectomy History of cholecystectomy Family History Family History Father Throat cancer Esophageal cancer Mother Hypertension Cancer Maternal Grandmother Uterine cancer Maternal Aunt Uterine cancer Maternal Uncle Esophageal cancer Prostate cancer Social History Social History Household Members: Spouse Housing: House Alcohol intake: never Patient Tobacco Use Status: Former Tobacco user Tobacco use type: Cigarette Years Smoked: quit 1989 e-Cigarette/Vaping Use: Never Used Second Hand Smoke Exposure: Yes Advance Directives: No Advance Directives Information Provided: No Do you have a plan to hurt others: No Plan service: No Current occupational status: disabled Cognitive needs: No Hearing needs: No Vision needs: Yes (reading glasses) Physical Exam ED Vital Signs: Vital Signs - 24 hr 12/06/23 13:30 12/06/23 22:56 Temperature 98.2 F 97.1 F Pulse Rate 76 72 Respiratory Rate 18 18 Blood Pressure 147/68 H 120/66 Pulse Oximetry 98 95 Oxygen Delivery Method Room Air Room Air BMI result Body Mass Index 33.1 Const General: cooperative, no acute distress, alert and awake Nutritional Appearance: well nourished Orientation/consciousness: patient oriented x3 Limitations: no limitations HENMT Head: Yes normal to inspection and Yes atraumatic Ears: hearing grossly normal bilaterally and external ears normal General nose exam: Normal external nose present, no nasal discharge noted and no epistaxis Face and sinus: Yes normal facial exam, No abrasion and No laceration Mouth: Normal oral and palatal mucosa present, no drooling and no muffled voice Eyes General: appearance normal, both eyes and all related structures Periorbital: periorbital findings normal Eyelids: Yes eyelids normal Conjunctivae: conjunctivae normal Pupils: Equal, round and reactive pupils present EOM: EOMs intact bilaterally Neck Other: multiple herpetic lesions to the right side of the neck with various degrees of openness, minimal surrounding erythema Neck: Yes full ROM and Yes no lymphadenopathy Chest Chest palpation & inspection: normal inspection of the chest Resp Effort & Inspection: normal respiratory effort and able to speak in complete sentences GI Inspection: Yes normal to inspection Neuro General: patient oriented x3 and moves all extremities Cranial nerves: Yes Equal, round and reactive pupils present Cognition (Neuro): normal cognition Motor exam (neuro): 5/5 motor strength present throughout Sensory Exam: Normal double simultaneous stimulation for sensation Coordination: [id number] test normal Extrem General: Yes normal to inspection, Yes full ROM and Yes capillary refill normal Psych Appearance: grossly normal Mental Status: mental status grossly normal Affect: normal affect Attitude: cooperative Thought process: Normal thought process present Thought content: Normal thought content present Insight: Good insight present (Psych) Course Course Course Narrative: This is an RME: Additional HPI, ROS, PE not included below will be deferred to primary provider. 58 yo f with pmhx of shingles presents from PCP for l sided neck pain. Rash started 11/19/23. Recently finished a course of valtrex X 7 days for shingles, but has worsening pain. Denies cp, sob, nausea, vomiting, diarrhea. Medications Administered Discontinued Medications Generic Name Dose Route Start Last Admin Trade Name Delvis PRN Reason Stop Dose Admin Diazepam 2.5 mg 12/06/23 21:10 12/06/23 22:51 Diazepam 10 Mg/2 Ml Cartridge IVPUSH 12/06/23 21:11 2.5 mg STAT STA Administration Diphenhydramine HCl 25 mg 12/06/23 21:10 12/06/23 22:51 Diphenhydramine Hcl 50 Mg/Ml Vial IVPUSH 12/06/23 21:11 25 mg ONCE ONE Administration Ceftriaxone Sodium 1 gm/ 50 mls @ 100 mls/hr 12/06/23 20:05 12/06/23 21:05 Sodium Chloride IV 12/06/23 20:34 100 mls/hr ONCE ONE Administration Methylprednisolone Sodium Succinate 60 mg 12/06/23 20:05 12/06/23 21:03 Methylprednisolone Sod Succ 125 Mg/2 Ml Vial IVPUSH 12/06/23 20:06 60 mg ONCE ONE Administration Medical Decision Making Medical Decision Making MDM Narrative: Patient is a 58 year old assigned female at with a history of bipolar disorder and recent diagnosis of shingles presenting to the emergency department today with possible super imposed infection of her shingles lesions and continued burning pain of her shingles lesions. Patient's physical exam was as noted in the physical exam portion of this note. Difficult to discern if surrounding erythema is secondary to the patient scratching or superimposed infection. Patient's blood work was unremarkable. Given patient's concern of superimposed infection, will treat with an antibiotic. Will also treat with corticosteroids as patient has already finished antiviral course. I explained my physical exam findings as well as all test results to the patient. I answered all questions asked by the patient. Patient was given IV antibiotics and IV steroids. I stressed the importance of the patient taking her medication as prescribed. I stressed the importance of the patient following up with her primary care provider. I stressed the importance of the patient returning to the emergency department immediately if her symptoms were to worsen or if she were to develop any dizziness, shortness of breath, difficulty breathing, chest pain, blurry vision, loss of vision, nausea, vomiting, abdominal pain, fever, chills, back pain, or any other complaints. Patient verbalized agreement and understanding with this treatment plan and discharge. Differential Diagnosis Differential Diagnoses: The differential diagnosis associated with the presentation includes Shingles Cellulitis Herpetic pain Admission/Observation Consideration of admission/observation: Escalation of care including admission/observation considered Patient would have been admitted to the hospital had her work up had any findings where hospital admission was appropriate and her clinical presentation warranted hospital admission. Lab Data MDM Lab Attestation statement: I reviewed the patient's lab results. My interpretation of these studies and their corresponding values is that they are grossly normal. 12/06/23 20:48 12/06/23 20:48 Labs: Lab Results 12/06/23 12/06/23 Range/Units 20:48 20:55 WBC 6.5 (4.8-10.8) X10*3/uL RBC 4.39 (4.20-5.50) X10*6/uL Hgb 13.7 (12.0-16.0) g/dl Hct 40.9 (37.0-47.0) % MCV 93.2 (80.0-98.0) fL MCH 31.2 (27.0-33.0) pg MCHC 33.5 (31.0-35.0) g/dl RDW 13.5 (11.0-16.0) % Plt Count 354 (160-400) X10*3/uL MPV 8.1 L (9.4-12.3) fL Immature Gran % (Auto) 0.0 (0.0-0.4) % Neut % (Auto) 36.3 L (45-73) % Lymph % (Auto) 50.5 H (20-40) % Wallace % (Auto) 7.6 (2-11) % Eos % (Auto) 5.1 H (0-4) % Baso % (Auto) 0.5 (0-2) % Lymph # (Auto) 3.3 (1.2-4.9) X10*3/uL Wallace # (Auto) 0.5 (0.1-1.2) X10*3/uL Eos # (Auto) 0.3 (0.0-0.4) X10*3/uL Baso # (Auto) 0.0 (0.0-0.2) X10*3/uL Abs Immat Gran (auto) 0.00 (0.00-0.03) X10*3/uL Absolute Neuts (auto) 2.4 (2.0-8.3) x10*3/uL Absolute Nucleated RBC 0.000 (0.0-0.012) X10*3/uL Nucleated RBC % (auto) 0.0 (0.0-0.2) /100WBC ESR 10 (0-20) MM/HR Sodium 139 (135-145) mmol/L Potassium 3.8 (3.3-5.1) mmol/L Chloride 107 (96-108) mmol/L Carbon Dioxide 23 (22-29) mmol/L Anion Gap 13 (12-20) BUN 17 H (9-16) mg/dL Creatinine 0.64 (0.5-1.4) mg/dL Estim Creat Clear Calc 103.7 Estimated GFR > 60 Random Glucose 99 (60-115) mg/dL Lactic Acid 1.6 (0.5-2.0) mmol/L Calcium 9.3 D (8.4-10.2) mg/dL Magnesium 2.0 (1.6-2.6) mg/dL Total Bilirubin 0.2 (0.0-1.0) mg/dL AST 15 (5-31) U/L ALT 18 (0-31) U/L Alkaline Phosphatase 103 (39-117) U/L C-Reactive Protein 0.55 H (< or = 0.50) mg/dL Total Protein 7.5 (6.5-8.0) g/dL Albumin 4.0 (3.5-5.0) g/dL External Record Review External record reviewed: Office record (reviewed 11/22/2023 visit with JEREMY Goodman.) Prescription Management I considered prescription management with: Antibiotic (patient prescribed an antibiotic for possible superimposd cellulitis) Critical Care Time Critical Care Time Critical Care Time: Yes Total Critical Care Time: 128 Attestation: I spent 128 minutes of Critical Care Time with this patient. This does not include time spent on separately reported billable procedures. Discharge Plan Discharge Clinical Impression: Cellulitis Shingles Qualifiers: Herpes zoster complications: unspecified herpes zoster complication Qualified Code(s): B02.8 - Zoster with other complications Patient Disposition: Home, Self-Care Instructions: Shingles (ED), Cellulitis (DC) Additional Instructions: Take your medication as prescribed. Follow up with your primary care provider. Return to the emergency department immediately if your symptoms worsen or if you develop any dizziness, shortness of breath, difficulty breathing, chest pain, blurry vision, loss of vision, nausea, vomiting, abdominal pain, fever, chills, back pain, or any other complaints. Prescriptions: New prednisone 20 mg tablet 20 mg PO DAILY 7 Days Qty: 7 0RF cephalexin 500 mg capsule 500 mg PO Q6H 7 Days Qty: 28 0RF No Action albuterol sulfate 2.5 mg /3 mL (0.083 %) solution for nebulization 2.5 mg inhalation QID PRN (Reason: shortness of breath or wheezing) Qty: 180 0RF meloxicam 15 mg tablet 15 mg PO DAILY PRN (Reason: for pain) Qty: 90 1RF topiramate 25 mg tablet 25 mg PO BID Qty: 180 0RF fluticasone propionate [Flovent HFA] 110 mcg/actuation HFA aerosol inhaler 2 puff INHALATION BID Qty: 12 12RF albuterol sulfate [Ventolin HFA] 90 mcg/actuation HFA aerosol inhaler 2 puff PO Q6H PRN (Reason: for muscle spasm) 30 Days Qty: 8 1RF clonazepam 1 mg tablet 1 mg PO BEDTIME Rx Instructions: administer 30 minutes before bedtime oxcarbazepine 600 mg tablet 600 mg PO BID Qty: 60 0RF desvenlafaxine 100 mg tablet extended release 24 hr 100 mg PO DAILY Qty: 30 0RF valacyclovir [Valtrex] 1 gram tablet 1,000 mg PO Q8H 7 Days Qty: 21 0RF gabapentin 300 mg capsule 300 mg PO TID 15 Days Qty: 45 1RF thiamine HCl (vitamin B1) 100 mg tablet 100 mg PO DAILY multivitamin Tablet 1 tab PO DAILY ascorbate calcium (vitamin C) 500 mg tablet 500 mg PO DAILY clonazepam 0.5 mg tablet 0.5 mg PO DAILY PRN (Reason: Anxiety) Rx Instructions: administer 30 minutes before bedtime clobetasol 0.05 % cream 1 appl topical BID Qty: 30 0RF Rx Instructions: Oral Lichen Planus Referrals: [facility] [place] Wound Care Management [Provider Group] (Given how your shingles lesions are progressing - I recommend you follow up with the wound center to ensure they heal well. ) Jas Tellez MD [Primary Care Provider] - Interventions: ED Discharge Assessment Last Done: 12/06/23 22:56 Discharge Date/Time: 12/06/23 23:12 Print Language: Turkmen
[2023-12-06 20:53] LABS: MANUAL DIFF FLAG NO
[2023-12-06 20:56] LABS: Basophils Percent Auto 0.5 % (0-2); Eosinophils Absolute Auto 0.3 X10*3/uL (0.0-0.4); Eosinophils Percent Auto 5.1 % (0-4); Hematocrit 40.9 % (37.0-47.0); Hemoglobin 13.7 g/dl (12.0-16.0); Lymphocytes Absolute Auto 3.3 X10*3/uL (1.2-4.9); Lymphocytes Percent Auto 50.5 % (20-40); Mean Corpuscular HGB Conc 33.5 g/dl (31.0-35.0); Mean Corpuscular Hemoglobin 31.2 pg (27.0-33.0); Mean Corpuscular Volume 93.2 fL (80.0-98.0); Mean Platelet Volume 8.1 fL (9.4-12.3); Monocytes Absolute Auto 0.5 X10*3/uL (0.1-1.2); Monocytes Percent Auto 7.6 % (2-11); Neutrophils Absolute Auto 2.4 x10*3/uL (2.0-8.3); Neutrophils Percent Auto 36.3 % (45-73); Platelet Count 354 X10*3/uL (160-400); Red Blood Count 4.39 X10*6/uL (4.20-5.50); Red Cell Distribution Width 13.5 % (11.0-16.0); White Blood Count 6.5 X10*3/uL (4.8-10.8)
[2023-12-06] MEDS: methylPREDNISolone Sod Succ 125 MG/2 ML VIAL 60 MG IVPUSH (21:03)
[2023-12-06] MEDS: cefTRIAXone sodium 1 GM in 0.9 % Sodium Chloride 50 ML IV (21:05)
[2023-12-06 21:06] LABS: Lactic Acid 1.6 mmol/L (0.5-2.0)
[2023-12-06 21:11] LABS: Alanine Aminotransferase 18 U/L (0-31); Alkaline Phosphatase 103 U/L (39-117); Anion Gap 13 (12-20); Aspartate Amino Transferase 15 U/L (5-31); Bilirubin Total 0.2 mg/dL (0.0-1.0); Blood Urea Nitrogen 17 mg/dL (9-16); C Reactive Protein 0.55 mg/dL (< or = 0.50); Calcium 9.3 mg/dL (8.4-10.2); Carbon Dioxide 23 mmol/L (22-29); Chloride 107 mmol/L (96-108); Creatinine Clr Calc Pharmacy 103.7; Estimated Glomerular Filt Rate > 60; Glucose Random 99 mg/dL (60-115); Potassium 3.8 mmol/L (3.3-5.1); Sodium 139 mmol/L (135-145); Total Protein 7.5 g/dL (6.5-8.0)
[2023-12-06 21:41] LABS: Erythrocyte Sedimentation Rate 10 MM/HR (0-20)
[2023-12-06] MEDS: diazePAM 10 MG/2 ML CARTRIDGE 2.5 MG IVPUSH (22:51)
[2023-12-06] MEDS: diphenhydrAMINE HCL 50 MG/ML VIAL 25 MG IVPUSH (22:51)
[2023-12-06 22:56] VITALS: BP 120/66; PULSE 72; RESP 18; TEMP 36.2; O2SAT 95
== END 2023-12-06 23:12 | disposition home or self-care (01) ==
PROVIDERS: Physician Assistant Medical; Emergency Provider Emergency Medicine; PCP Internal Medicine
DX: L03.221 Cellulitis of neck (principal); B02.8 Zoster with other complications; Z79.899 Other long term (current) drug therapy
CPT/HCPCS: 36415; 80053; 83605; 83735; 85025; 85652; 86140; 87040; 96374; 96375; 99283; 99284; J0696; J1200; J2919; J3360

== ENCOUNTER 2023-12-17 12:29 | Outpatient (RCR) | payer OTHER, SELFPAY | END 2023-12-31 09:00 | disposition home or self-care (01) | LOC: HO.WCC 12:29 | PROVIDERS: PCP Internal Medicine; Visit Provider Surgery | DX: L98.492 Non-pressure chronic ulcer of skin of other sites with fat layer exposed (principal); L30.9 Dermatitis, unspecified | CPT/HCPCS: 99212; 99213 ==

== ENCOUNTER 2023-12-17 13:39 | Outpatient (AMB) | payer OTHER, SELFPAY ==
[2023-12-17 13:53] VITALS: BP 110/78; PULSE 82; O2SAT 97; BMI 33.7
--- NOTE | 2023-12-17 13:53 | A.OFFPC_ITS ---
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 Required: No Accompanied by: Self / Same As Patient Allergies Penicillins [PENICILLINS] Allergy (Intermediate, Verified 12/17/23 13:54) HIVES latex [Latex] Allergy (Mild, Verified 12/17/23 13:54) RASH Medication List - Last Reconciled 12/17/23 by Jas Tellez MD albuterol sulfate 2.5 mg (3 mL) inhalation QID PRN ascorbate calcium (vitamin C) 500 mg PO DAILY clobetasol 0.05% 1 appl topical BID clonazepam 1 mg PO BEDTIME desvenlafaxine ER 100 mg PO DAILY fluticasone propionate 110 mcg/actuation (Flovent HFA) 2 puffs inhalation BID gabapentin 300 mg PO .QD 15 days melatonin 5 mg PO BEDTIME PRN meloxicam 15 mg PO DAILY PRN multivitamin 1 tab PO DAILY oxcarbazepine 600 mg PO BID thiamine HCl (vitamin B1) 100 mg PO DAILY topiramate 25 mg PO BID valacyclovir (Valtrex) 1,000 mg PO Q8H 7 days Ventolin HFA 90 mcg/actuation (albuterol sulfate) 2 puffs PO Q6H PRN 30 days NS Tobacco use date assessed: 09/20/23 Dental Screening Dental Screen Date: 09/20/23 HPI cholesterol , schedule for PE HPI Details 58-year-old obese female with GERD bipol ar migraine hypercholesterolemia lumbar spondylosis coming in for follow-up. Last seen in September 2023. Patient's colonoscopy is due this year. Mammogram is up-to-date review of the notes in 12/06/2023 was in the ER shingles occurred right side of the neck concern about infection and was treated with cephalexin. In October an echocardiogram done low normal ejection fraction 50-55% with impaired relaxation filling pattern valves normal. asthma controlled , bipolar seeing psych adn t [facility] Medical History Obesity (BMI 30-39.9) Annual physical exam Cervical cancer screening Constipation Seizure-like activity Impacted cerumen of right ear Bilateral hand pain Bilateral ankle pain Colon cancer screening Oral lichenoid mucositis Observed seizure-like activity Seizure disorder Disc degeneration, lumbar Spondylosis of lumbar spine Sacroiliitis Renal calculi Peptic ulcer disease GERD (gastroesophageal reflux disease) Migraine TIA (transient ischemic attack) Bipolar disorder Asthma Hypercholesterolemia Vitamin D deficiency Carpal tunnel syndrome Lumbar spondylosis Osteoarthritis of hands, bilateral Surgical History Vocal cord cyst H/O plastic surgery History of arthroscopy of right knee History of lumbar surgery History of abdominoplasty History of gastric surgery LAP-BAND surgery status History of tubal ligation History of tonsillectomy History of cholecystectomy Family History Father Throat cancer Esophageal cancer Mother Hypertension Cancer Maternal Grandmother Uterine cancer Maternal Aunt Uterine cancer Maternal Uncle Esophageal cancer Prostate cancer Social History Household Members: Spouse Housing: House Alcohol intake: never Patient Tobacco Use Status: Former Tobacco user Tobacco use type: Cigarette Years Smoked: quit 1989 e-Cigarette/Vaping Use: Never Used Second Hand Smoke Exposure: Yes service: No Current occupational status: disabled Cognitive needs: No Hearing needs: No Vision needs: Yes (reading glasses) Questionnaire Thrive Questionnaire Date Thrive assessed: 09/20/23 PEPE-7 AMB Questionnaire PEPE-7 Date PEPE - 7 assessed: 09/20/23 Source: Developed by Drs. Juma Mckinley, Lani Chen, Vinny Beltrán and colleagues, with an educational shiraz from [employer]. Physical exam (Primary Care) Vital Signs: Last Vital Signs Pulse 82 12/17/23 13:53 BP 110/78 12/17/23 13:53 Pulse Ox 97 12/17/23 13:53 Oxygen Delivery Method Room Air 12/17/23 13:53 BMI result Body Mass Index 33.7 Tobacco/Smoking Status: Tobacco use Status Tobacco use date assessed 09/20/23 12/17/23 13:54 Patient Tobacco Use Status Former Tobacco user 12/17/23 13:54 Tobacco use type Cigarette 12/17/23 13:54 e-Cigarette/Vaping Use Never Used 12/17/23 13:54 Thrive Assessment: Date of Thrive Assessment Date Thrive assessed 09/20/23 12/17/23 13:54 Const General: alert; No acute distress Eyes Conjunctivae: conjunctivae normal Resp Auscultation: clear to auscultation bilaterally Cardio Rate: regular rate Rhythm: regular rhythm GI Inspection: Yes normal to inspection Extrem General: Yes normal to inspection and No edema Assessment and Plan Assessment & Plan (1) Herpes zoster: Comment: Right side of the neck Code(s): B02.9 - Zoster without complications Qualifiers: Herpes zoster complications: unspecified herpes zoster complication Qualified Code(s): B02.8 - Zoster with other complications Plan: Patient was seen in the hospital for cellulitis and was given cephalexin. (2) Hypercholesterolemia: Code(s): E78.00 - Pure hypercholesterolemia, unspecified Plan: Avoid fried foods, chicken skin, eggs, butter margarine, pastries and meat. Be it pork or beef they have a lot of cholesterol (3) Bipolar disorder: Comment: [place] Code(s): F31.9 - Bipolar disorder, unspecified Qualifiers: Active/Remission status: currently active Current bipolar episode type: depressed Current episode severity: moderate Qualified Code(s): F31.32 - Bipolar disorder, current episode depressed, moderate Plan: Continue with counseling and therapy and is on Topamax oxcarbazepine does venlafaxine clonazepam Orders: Referrals Dermatology Referral B02.8 - Zoster with other complications Medications: New melatonin 5 mg PO BEDTIME PRN 30 tabs 0RF sleep B02.8 - Zoster with other complications Changed From gabapentin 300 mg PO TID 15 days 45 caps 1RF B02.8 - Zoster with other complications To gabapentin 300 mg PO .QD 15 days 30 caps 1RF B02.8 - Zoster with other complications Refilled meloxicam 15 mg PO DAILY PRN 90 tabs 1RF for pain E78.00 - Pure hypercholesterolemia, unspecified Coding Level of Care Code Est Pt Level 4 (04401) Diagnoses Herpes zoster with complication B02.8 Herpes zoster complications: unspecified herpes zoster complication Hypercholesterolemia E78.00 Bipolar affective disorder, currently depressed, moderate F31.32 Active/Remission status: currently active Current bipolar episode type: depressed Current episode severity: moderate
== END 2023-12-17 14:54 | disposition home or self-care (01) ==
PROVIDERS: PCP Internal Medicine; Visit Provider Internal Medicine
DX: B02.8 Zoster with other complications (principal); E78.00 Pure hypercholesterolemia, unspecified; F31.32 Bipolar disorder, current episode depressed, moderate
CPT/HCPCS: 99214

== ENCOUNTER 2023-12-29 08:59 | Outpatient (AMB) | payer OTHER, SELFPAY ==
[2023-12-29 09:02] VITALS: BP 122/70; PULSE 84; BMI 34.1
--- NOTE | 2023-12-29 09:02 | MHC.OFFVIS ---
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/Left bundle-branch block, Allergies Penicillins [PENICILLINS] Allergy (Intermediate, Verified 12/17/23 13:54) HIVES latex [Latex] Allergy (Mild, Verified 12/17/23 13:54) RASH Medication List - Last Reconciled 12/29/23 by Kevin Romano MD albuterol sulfate 2.5 mg (3 mL) inhalation QID PRN ascorbate calcium (vitamin C) 500 mg PO DAILY clobetasol 0.05% 1 appl topical BID clonazepam 1 mg PO BEDTIME desvenlafaxine ER 100 mg PO DAILY fluticasone propionate 110 mcg/actuation (Flovent HFA) 2 puffs inhalation BID gabapentin 300 mg PO .QD 15 days melatonin 5 mg PO BEDTIME PRN meloxicam 15 mg PO DAILY PRN multivitamin 1 tab PO DAILY oxcarbazepine 600 mg PO BID semaglutide (weight loss) 0.25 mg (0.5 mL) subcut QWEEK thiamine HCl (vitamin B1) 100 mg PO DAILY topiramate 25 mg PO BID valacyclovir (Valtrex) 1,000 mg PO Q8H 7 days Ventolin HFA 90 mcg/actuation (albuterol sulfate) 2 puffs PO Q6H PRN 30 days NS HPI Comments Details: Eleni is here for consultation regarding left bundle-branch block on the EKG. She does not have any cardiac issues in the past including coronary disease or myocardial infarction or cardiomyopathy or in fact anything cardiac sounding. She does not have any clear-cut symptoms like angina. She does get short of breath on climbing upstairs but she is also overweight. She was supposedly to go for tummy tuck surgery for cosmetic reasons but apparently canceled because of the left bundle-branch block. [facility] Medical History (Updated 12/17/23 @ 17:38 by Jas Tellez MD) Obesity (BMI 30-39.9) Annual physical exam Cervical cancer screening Constipation Seizure-like activity Impacted cerumen of right ear Bilateral hand pain Bilateral ankle pain Colon cancer screening Oral lichenoid mucositis Observed seizure-like activity Seizure disorder Disc degeneration, lumbar Spondylosis of lumbar spine Sacroiliitis Renal calculi Peptic ulcer disease GERD (gastroesophageal reflux disease) Migraine TIA (transient ischemic attack) Bipolar disorder Asthma Hypercholesterolemia Vitamin D deficiency Carpal tunnel syndrome Lumbar spondylosis Osteoarthritis of hands, bilateral Surgical History Vocal cord cyst H/O plastic surgery History of arthroscopy of right knee History of lumbar surgery History of abdominoplasty History of gastric surgery LAP-BAND surgery status History of tubal ligation History of tonsillectomy History of cholecystectomy Family History Father Throat cancer Esophageal cancer Mother Hypertension Cancer Maternal Grandmother Uterine cancer Maternal Aunt Uterine cancer Maternal Uncle Esophageal cancer Prostate cancer Social History Household Members: Spouse Housing: House Alcohol intake: never Patient Tobacco Use Status: Former Tobacco user Tobacco use type: Cigarette Years Smoked: 1989 e-Cigarette/Vaping Use: Never Used Second Hand Smoke Exposure: Yes service: No Current occupational status: disabled Cognitive needs: No Hearing needs: No Vision needs: Yes (reading glasses) Review of Systems Const Denies weakness ENT Denies dizziness Card Denies chest pain, Denies chest pain with activity, Denies syncope, Denies rapid heart rate, Denies pedal edema, Denies edema, Denies leg edema, Denies lightheadedness, Denies palpitations, Denies dyspnea, Denies dyspnea on exertion and Denies orthopnea Resp Denies cough, Denies dyspnea and Denies dyspnea on exertion GI Denies hematochezia and Denies change in stool character Musc Denies abnormal gait, Denies muscle cramps, Denies muscle weakness, Denies numbness, Denies radiating pain into limb and Denies tingling Neuro Denies abnormal gait, Denies dizziness, Denies syncope, Denies numbness, Denies tingling and Denies weakness Endo Denies palpitations Physical Exam Vital Signs: Last Vital Signs Pulse 84 12/29/23 09:02 BP 122/70 12/29/23 09:02 BMI result Body Mass Index 34.1 Const General: comfortable and no acute distress Orientation/consciousness: patient oriented x3 HEENT Other: Unremarkable Head: Yes normal to inspection Neck Neck: Yes normal visual inspection Chest Chest palpation & inspection: normal inspection of the chest Resp Auscultation: clear to auscultation bilaterally Cardio Palpation: normal PMI Heart sounds: S1 normal heart sound present, S2 normal heart sound present, no gallops, no murmurs and no rubs GI Palpation (GI): Soft to palpation Back/Spine/Pelvis Other: unremarkable Skin General skin exam: no rashes or lesions noted Neuro General: patient oriented x3 Extrem General: Yes normal to inspection Psych Mental Status: mental status grossly normal Assessment & Plan Assessment & Plan (1) Left bundle branch block: Code(s): I44.7 - Left bundle-branch block, unspecified Category: Medical Plan Left bundle-branch block of unknown duration. A prior rhythm strip from 2022 also shows the same finding. Echocardiogram with LVEF of 50-55%. Peak global longitudinal strain of-17.2%, borderline low. Otherwise unremarkable. Pathophysiology of left bundle-branch block, potential consequences discussed with patient and significant other. We will plan on coronary CTA to assess for any concurrent CAD. Home sleep study can be completed. Follow-up after the above. Orders: Orders CT Cardiac Coronary Angio Today I25.10 - Atherosclerotic heart disease of [place] coronary artery without angina pectoris, I44.7 - Left bundle-branch block, unspecified RT home sleep study Today G47.33 - Obstructive sleep apnea (adult) (pediatric), I44.7 - Left bundle-branch block, unspecified Coding Level of Care Code New Pt Level 4 (16930) Diagnoses Left bundle branch block I44.7
== END 2023-12-29 09:49 | disposition home or self-care (01) ==
PROVIDERS: PCP Internal Medicine; Visit Provider Internal Medicine
DX: I44.7 Left bundle-branch block, unspecified (principal)
CPT/HCPCS: 93010; 99204

== ENCOUNTER → 2023-12-29 08:59 | Outpatient (BNVA) | payer OTHER, SELFPAY | PROVIDERS: PCP Internal Medicine; Visit Provider Internal Medicine | DX: I44.7 Left bundle-branch block, unspecified (principal); I25.10 Atherosclerotic heart disease of native coronary artery without angina pectoris; I10 Essential (primary) hypertension; G47.33 Obstructive sleep apnea (adult) (pediatric) | CPT/HCPCS: 93005; 99202 ==

== ENCOUNTER → 2024-01-31 13:45 | Outpatient (REF) | payer OTHER, SELFPAY | LOC: HO.SL 13:45 | PROVIDERS: PCP Internal Medicine; Visit Provider Internal Medicine | DX: G47.33 Obstructive sleep apnea (adult) (pediatric) (principal); I44.7 Left bundle-branch block, unspecified | CPT/HCPCS: 95806 ==

== ENCOUNTER → 2024-01-31 13:55 | Outpatient (BNV) | payer OTHER, SELFPAY | PROVIDERS: PCP Internal Medicine; Visit Provider Internal Medicine | DX: G47.33 Obstructive sleep apnea (adult) (pediatric) (principal) | CPT/HCPCS: 95806 ==

== ENCOUNTER 2024-02-25 10:41 | Outpatient (REF) | payer OTHER, SELFPAY | END 2024-02-25 10:42 | disposition home or self-care (01) | LOC: HO.MAMMO 10:41 | PROVIDERS: PCP Internal Medicine; Visit Provider Internal Medicine | DX: Z12.31 Encounter for screening mammogram for malignant neoplasm of breast (principal) | CPT/HCPCS: 77063; 77067 ==

== ENCOUNTER → 2024-02-25 11:00 | Outpatient (BNV) | payer OTHER, SELFPAY | PROVIDERS: PCP Internal Medicine; Visit Provider Radiology Diagnostic Radiology | DX: Z12.31 Encounter for screening mammogram for malignant neoplasm of breast (principal) | CPT/HCPCS: 77063; 77067 ==

== ENCOUNTER 2024-03-20 09:42 | Outpatient (REF) | payer OTHER, SELFPAY ==
[2024-03-20 11:52] LABS: Anion Gap 11 (12-20); Blood Urea Nitrogen 14 mg/dL (9-16); Calcium 9.4 mg/dL (8.4-10.2); Carbon Dioxide 28 mmol/L (22-29); Chloride 107 mmol/L (96-108); Estimated Glomerular Filt Rate > 60; Glucose Random 89 mg/dL (60-115); Potassium 4.3 mmol/L (3.3-5.1); Sodium 142 mmol/L (135-145)
== END 2024-03-20 09:43 | disposition home or self-care (01) ==
LOC: HO.LAB 09:42
PROVIDERS: PCP Internal Medicine; Visit Provider Internal Medicine
DX: I44.7 Left bundle-branch block, unspecified (principal)
CPT/HCPCS: 36415; 80048

== ENCOUNTER 2024-04-06 09:09 | Outpatient (AMB) | payer OTHER, SELFPAY ==
[2024-04-06 09:11] VITALS: BP 110/64; PULSE 84; BMI 33.7
--- NOTE | 2024-04-06 09:11 | A.OFFVIS_ITS ---
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 Accompanied by: Spouse Allergies Penicillins [PENICILLINS] Allergy (Intermediate, Verified 12/17/23 13:54) HIVES latex [Latex] Allergy (Mild, Verified 12/17/23 13:54) RASH Medication List - Last Reconciled 04/06/24 by Kevin Romano MD albuterol sulfate 2.5 mg (3 mL) inhalation QID PRN ascorbate calcium (vitamin C) 500 mg PO DAILY clobetasol 0.05% 1 appl topical BID clonazepam 1 mg PO BEDTIME desvenlafaxine ER 100 mg PO DAILY fluticasone propionate 110 mcg/actuation (Flovent HFA) 2 puffs inhalation BID gabapentin 300 mg PO .QD 15 days linaclotide (Linzess) 290 mcg PO DAILY liraglutide (weight loss) (Saxenda) 1.8 mg (0.3 mL) subcut DAILY melatonin 5 mg PO BEDTIME PRN meloxicam 15 mg PO DAILY PRN multivitamin 1 tab PO DAILY oxcarbazepine 600 mg PO BID thiamine HCl (vitamin B1) 100 mg PO DAILY topiramate 25 mg PO BID Ventolin HFA 90 mcg/actuation (albuterol sulfate) 2 puffs PO Q6H PRN 30 days NS HPI Comments Details: Eleni returns for follow-up regarding left bundle-branch block. She was supposed to go for tummy tuck surgery for cosmetic reasons but apparently there was canceled because of left bundle-branch block. Patient herself does not have any cardiac history. She does not have any cardiac symptoms either. History of bariatric surgery many years ago. COUNTS INCLUDE 234 BEDS AT THE [facility] Medical History (Updated 04/06/24 @ 09:42 by Kevin Romano MD) Obesity (BMI 30-39.9) Annual physical exam Cervical cancer screening Constipation Seizure-like activity Impacted cerumen of right ear Bilateral hand pain Bilateral ankle pain Colon cancer screening Oral lichenoid mucositis Observed seizure-like activity Seizure disorder Disc degeneration, lumbar Spondylosis of lumbar spine Sacroiliitis Renal calculi Peptic ulcer disease GERD (gastroesophageal reflux disease) Migraine TIA (transient ischemic attack) Bipolar disorder Asthma Hypercholesterolemia Vitamin D deficiency Carpal tunnel syndrome Lumbar spondylosis Osteoarthritis of hands, bilateral Surgical History Vocal cord cyst H/O plastic surgery History of arthroscopy of right knee History of lumbar surgery History of abdominoplasty History of gastric surgery LAP-BAND surgery status History of tubal ligation History of tonsillectomy History of cholecystectomy Family History Father Throat cancer Esophageal cancer Mother Hypertension Cancer Maternal Grandmother Uterine cancer Maternal Aunt Uterine cancer Maternal Uncle Esophageal cancer Prostate cancer Social History Household Members: Spouse Housing: House Alcohol intake: never Patient Tobacco Use Status: Former Tobacco user Tobacco use type: Cigarette Years Smoked: 1989 e-Cigarette/Vaping Use: Never Used Second Hand Smoke Exposure: Yes service: No Current occupational status: disabled Cognitive needs: No Hearing needs: No Vision needs: Yes (reading glasses) Review of Systems Const Denies chills, Denies fatigue, Denies fever(s), Denies weight gain and Denies weight loss ENT Denies dizziness Card Denies chest pain, Denies leg edema, Denies lightheadedness, Reports palpitations, Reports dyspnea on exertion, Denies orthopnea and Denies other Resp Denies cough and Reports dyspnea on exertion GI Denies hematochezia and Denies change in stool character Musc Denies abnormal gait, Denies muscle weakness, Denies numbness, Denies radiating pain into limb and Denies tingling Neuro Denies abnormal gait, Denies dizziness, Denies numbness and Denies tingling Endo Denies fatigue and Reports palpitations Physical Exam Vital Signs: Last Vital Signs Pulse 84 04/06/24 09:11 BP 110/64 04/06/24 09:11 BMI result Body Mass Index 33.7 Const General: comfortable and no acute distress Orientation/consciousness: patient oriented x3 HEENT Other: Unremarkable Head: Yes normal to inspection Neck Neck: Yes normal visual inspection Chest Chest palpation & inspection: normal inspection of the chest Resp Auscultation: clear to auscultation bilaterally Cardio Palpation: normal PMI Heart sounds: S1 normal heart sound present, S2 normal heart sound present, no gallops, no murmurs and no rubs GI Palpation (GI): Soft to palpation Back/Spine/Pelvis Other: unremarkable Skin General skin exam: no rashes or lesions noted Neuro General: patient oriented x3 Extrem General: Yes normal to inspection Psych Mental Status: mental status grossly normal Assessment & Plan Assessment & Plan (1) Left bundle branch block: Code(s): I44.7 - Left bundle-branch block, unspecified Category: Medical (2) Preoperative cardiovascular examination: Code(s): Z01.810 - Encounter for preprocedural cardiovascular examination Category: Medical (3) Obesity (BMI 30-39.9): Code(s): E66.9 - Obesity, unspecified Category: Medical Plan Left bundle-branch block of unknown duration. A prior rhythm strip from 2022 also shows the same finding. Echocardiogram with LVEF of 50-55%. Peak global longitudinal strain of-17.2%, borderline low. Otherwise unremarkable. Coronary CTA without any evidence of atherosclerotic coronary disease. Minimal plaque in the aortic root/descending thoracic aorta. Overall, from the surgical perspective may proceed as planned. Low cardiac risk. With regard to the left bundle-branch block, pathophysiology discussed. At this time, no specific interventions. We will follow her on echocardiogram for any LV dysfunction. Advised to watch out for symptoms like presyncope which could indicate progressive conduction system disease. At that time, will need to seek emergency help. Continued weight loss may help prevent progression of conduction system disease Follow-up in 1 year. Discussed with significant other. Orders: Orders CA echo transthoracic complete Today I44.7 - Left bundle-branch block, unspecified Coding Level of Care Code Est Pt Level 4 (75697) Diagnoses Left bundle branch block I44.7 Preoperative cardiovascular examination Z01.810 Obesity (BMI 30-39.9) E66.9
== END 2024-04-06 10:16 | disposition home or self-care (01) ==
PROVIDERS: PCP Internal Medicine; Visit Provider Internal Medicine
DX: I44.7 Left bundle-branch block, unspecified (principal); Z01.810 Encounter for preprocedural cardiovascular examination; E66.9 Obesity, unspecified
CPT/HCPCS: 99213; 99214

== ENCOUNTER → 2024-04-06 09:09 | Outpatient (BNVA) | payer OTHER, SELFPAY | PROVIDERS: PCP Internal Medicine; Visit Provider Internal Medicine | DX: Z01.810 Encounter for preprocedural cardiovascular examination (principal); I44.7 Left bundle-branch block, unspecified; E66.9 Obesity, unspecified; Z68.33 Body mass index [BMI] 33.0-33.9, adult; Z53.09 Procedure and treatment not carried out because of other contraindication | CPT/HCPCS: 99212 ==

== ENCOUNTER → 2024-05-01 14:47 | Outpatient (REF) | payer OTHER, SELFPAY ==
--- NOTE | 2024-05-01 14:49 | CA_ITS ---
Transthoracic Echocardiogram Patient (Last, First, Middle): Eleni Asher, Gender: Female Date of : 1965 Age: 58 Procedure Date: 05/01/2024 Procedure Type: Transthoracic Echocardiogram Location: OP Height: 165. cm Weight: 89.81 kg BSA: 1.97 m2 Heart Rate: 67 bpm BP: 100 / 70 mmHg Producer Arborist Manager: BRYANT Referring MD: Kevin Romano MD Symptoms: I44.7 - Left bundle-branch block, unspecified Study Quality: Adequate ECG Rhythm: Sinus Conclusions: - The left ventricular systolic function is mildly decreased. The calculated ejection fraction is 50% by biplane method. - No obvious valvular pathology seen on this study. Findings Left Ventricle Normal left ventricular cavity size. There is normal left ventricular wall thickness. The left ventricular systolic function is mildly decreased. The calculated ejection fraction is 50% by biplane method. There is paradoxical septal motion consistent with a left bundle branch block. Evidence suggests grade I (mild) diastolic dysfunction. Right Ventricle Normal right ventricular cavity size. There is low normal right ventricular systolic function. Atria Both atria are normal in size. Aortic Valve There is a normal trileaflet aortic valve. There is no aortic valve stenosis. There is no aortic valve regurgitation. Mitral Valve The mitral valve appears normal. There is trace mitral valve regurgitation. There is no mitral valve stenosis. Pulmonic Valve The pulmonic valve is likely normal. Tricuspid Valve Normal tricuspid valve structure. There is trace tricuspid valve regurgitation. There is no evidence of pulmonary hypertension. Great Vessels The asc aorta is normal in size. Venous The inferior vena cava is normal in size and collapses greater than 50% with inspiration. Pericardium/Pleural There is no evidence of pericardial effusion. Prior Study Comparison No significant change compared to prior study dated: 10/13/2023. Recommendations, Care & Conclusions No obvious valvular pathology seen on this study. Measurements 2D Linear Measurements IVSd: 1.02 0.6-0.9/0.6-1.0 cm LVIDd: 4.03 3.9-5.3/4.2-5.9 cm LVIDd Index: 2.05 2.4-3.2/2.2-3.1 cm/m2 LVIDs: 2.45 2.0-3.6 cm LVPWd: 0.91 0.7-1.1 cm LA Diam: 3.60 2.7-3.8/3.0-4.0 cm LAIDs Index: 1.83 1.5-2.3 cm/m2 LV Mass: 152.11 67-162/88-224 g LV Mass Index: 77.21 43-95/49-115 g/m2 LVOT Diam: 2.10 3.0+(-)1.3 cm 2D Systolic Function EF 4C: 48.90 >55% EF 2C: 49.80 >55% EF BiP: 49.60 >55% Mitral Valve MV Pk E: 0.91 MV PK A: 1.12 MV Decel Time: 327.00 E/A: 0.80 E'Lateral: 7.94 E'Medial: 4.90 E/E' Med: 18.50 E/E' Lat: 11.40 PHT: 96.00 MVA PHT: 2.29 Decel [place]: 2.77 Aortic Valve AoV Pk Eusebio: 1.73 AoV Mn Eusebio: 1.15 AoV VTI: 0.32 AoV Pk Grad: 12.00 Aov Mn Grad: 6.00 BENY Cont.VTI: 2.14 LVOT LVOT Pk Eusebio: 1.04 LVOT Mn Eusebio: 0.73 LVOT VTI: 0.20 LVOT Pk Grad: 4.00 LVOT Mn Grad: 3.00 LVOT Diam: 2.10 LVOT Area: 3.46 Diastolic Function MV Pk E: 0.91 MV Pk A: 1.12 E/A: 0.80 E'Medial: 4.90 E/E' Med: 18.50 E' Laterial: 7.94 E/E' Lat: 11.40 Right Ventricle TAPSE (mm): 18.00 TVS' Eusebio: 8.38 Tricuspid Valve TR Pk Eusebio: 2.15 TR Pk Grad: 18.00 RA Press: 3.00 RVSP: 21.00 Great Vessels Aorta Sinus of Valsalva: 3.30 2.0-3.5 cm Ao Asc: 3.10 2.1-3.4 cm Pulmonary Valve PV Pk Eusebio: 1.17 Peak PV Grad: 5.00 Updated in Other Vendor System with Status of Final Kevin Romano MD electronically signed on 05/02/2024 4:23:56 PM with status of Final
== END ==
LOC: HO.CARD 14:47
PROVIDERS: PCP Internal Medicine; Visit Provider Internal Medicine
DX: I44.7 Left bundle-branch block, unspecified (principal)
CPT/HCPCS: 93306

== ENCOUNTER → 2024-05-01 14:49 | Outpatient (BNV) | payer OTHER, SELFPAY | PROVIDERS: PCP Internal Medicine; Visit Provider Internal Medicine | DX: I51.89 Other ill-defined heart diseases (principal); I44.7 Left bundle-branch block, unspecified; R93.1 Abnormal findings on diagnostic imaging of heart and coronary circulation | CPT/HCPCS: 93306 ==

== ENCOUNTER 2024-05-04 08:39 | Outpatient (REF) | payer OTHER, SELFPAY ==
[2024-05-04 08:52] LABS: MANUAL DIFF FLAG NO
[2024-05-04 09:10] LABS: Basophils Percent Auto 0.4 % (0-2); Eosinophils Absolute Auto 0.2 X10*3/uL (0.0-0.4); Eosinophils Percent Auto 4.5 % (0-4); Hematocrit 39.4 % (37.0-47.0); Hemoglobin 13.1 g/dl (12.0-16.0); Imm Gran Abs Auto 0.01 X10*3/uL (0.00-0.03); Imm Gran Pct Auto 0.2 % (0.0-0.4); Lymphocytes Absolute Auto 1.7 X10*3/uL (1.2-4.9); Lymphocytes Percent Auto 34.7 % (20-40); Mean Corpuscular HGB Conc 33.2 g/dl (31.0-35.0); Mean Corpuscular Hemoglobin 30.9 pg (27.0-33.0); Mean Corpuscular Volume 92.9 fL (80.0-98.0); Mean Platelet Volume 8.5 fL (9.4-12.3); Monocytes Absolute Auto 0.4 X10*3/uL (0.1-1.2); Monocytes Percent Auto 8.2 % (2-11); Neutrophils Absolute Auto 2.6 x10*3/uL (2.0-8.3); Platelet Count 282 X10*3/uL (160-400); Red Blood Count 4.24 X10*6/uL (4.20-5.50); Red Cell Distribution Width 13.7 % (11.0-16.0); White Blood Count 4.9 X10*3/uL (4.8-10.8)
[2024-05-04 09:11] LABS: Appearance Urine Clear; Color Urine Yellow; Glucose Urine UA Negative (Negative); Leukocyte Esterase Urine Moderate (2+) (Negative); Nitrite Urine Positive (Negative); PH 6.5 (5.0-9.0); UMIC TRIGGER UA YES; Urine Blood Negative (Negative); Urine Ketones Negative (Negative); Urine Protein Negative (Neg-Trace)
[2024-05-04 09:47] LABS: Alanine Aminotransferase 13 U/L (0-31); Albumin Level 3.7 g/dL (3.5-5.0); Alkaline Phosphatase 108 U/L (39-117); Anion Gap 9 (12-20); Aspartate Amino Transferase 12 U/L (5-31); Bilirubin Total 0.3 mg/dL (0.0-1.0); Blood Urea Nitrogen 21 mg/dL (9-16); Calcium 9.3 mg/dL (8.4-10.2); Carbon Dioxide 26 mmol/L (22-29); Chloride 112 mmol/L (96-108); Cholesterol 201 mg/dL (<200); Estimated Glomerular Filt Rate > 60; Glucose Random 98 mg/dL (60-115); HDL Cholesterol 44 mg/dL (>40); LDL Cholesterol Calculated 132 mg/dL (<100); Potassium 4.1 mmol/L (3.3-5.1); Sodium 143 mmol/L (135-145); Total Protein 6.7 g/dL (6.5-8.0); Triglycerides 127 mg/dL (<150)
[2024-05-04 09:55] LABS: Bacteria Urine 2+ (None Seen); Hyaline Casts Urine 0-2 /LPF (0-2); RBC Urine 0-2 /HPF (0-2)
[2024-05-04 09:57] LABS: Free T4 (Free Thyroxine) 0.71 ng/dL (0.71-1.85); Thyroid Stimulating Hormone 1.63 uIU/mL (0.32-4.0); Vitamin D 25-OH Total 32.6 ng/mL (>30)
[2024-05-04 10:09] LABS: Folate 7.1 ng/mL (> or = 4.0); Vitamin B12 390 pg/mL (200-900)
== END 2024-05-04 08:40 | disposition home or self-care (01) ==
LOC: HO.LAB 08:39
PROVIDERS: PCP Internal Medicine; Visit Provider Internal Medicine
DX: E78.00 Pure hypercholesterolemia, unspecified (principal)
CPT/HCPCS: 36415; 80053; 80061; 81001; 82306; 82607; 82746; 84439; 84443; 85025

== ENCOUNTER 2024-05-05 13:33 | Outpatient (AMB) | payer OTHER, SELFPAY ==
--- NOTE | 2024-05-05 13:39 | MHC.PC.OV ---
Vital Signs 05/05/24 13:40 Height 5 ft 5 in Weight 200 lb 2 oz BMI 33.3 BP 128/64 Blood Pressure Location Lt brachial Position Sitting Pulse 77 Pulse Source Pulse Oximeter Pulse Oximetry (%) 94 Oxygen Delivery Method Room Air Intake Visit Reasons: PE Intake Note: Patient is here today for a physical. Gear Cutter Required: No Artists' Booking Representative: Not Required per policy Accompanied by: Self / Same As Patient Allergies Penicillins [PENICILLINS] Allergy (Intermediate, Verified 05/05/24 13:40) HIVES latex [Latex] Allergy (Mild, Verified 05/05/24 13:40) RASH Medication List - Last Reconciled 05/05/24 by Jas Tellez MD albuterol sulfate 2.5 mg (3 mL) inhalation QID PRN ascorbate calcium (vitamin C) 500 mg PO DAILY clobetasol 0.05% 1 appl topical BID clonazepam 1 mg PO BEDTIME desvenlafaxine ER 100 mg PO DAILY gabapentin 300 mg PO .QD 15 days linaclotide (Linzess) 290 mcg PO DAILY liraglutide (weight loss) (Saxenda) 1.8 mg (0.3 mL) subcut DAILY melatonin 5 mg PO BEDTIME PRN multivitamin 1 tab PO DAILY omeprazole 20 mg PO BID oxcarbazepine 600 mg PO BID thiamine HCl (vitamin B1) 100 mg PO DAILY topiramate 25 mg PO BID Ventolin HFA 90 mcg/actuation (albuterol sulfate) 2 puffs PO Q6H PRN 30 days NS Tobacco use date assessed: 05/05/24 Dental Screening Dental Screen Date: 09/20/23 HPI PE HPI Details 58-year-old obese female with hypercholesterolemia and bipolar disorder coming in for physical exam last seen in December 2023. Patient's colonoscopy last done in July 2014, mammogram is up-to-date. Patient had an echocardiogram done in 05/02/2024.he left ventricular systolic function is mildly decreased. The calculated ejection fraction is 50% by biplane method. - No obvious valvular pathology seen on this study. Was seen by Cardiology in March abdominoplasty surgery canceled due to having left bundle branch block. CTA coronary no evidence of atherosclerotic coronary disease patient had a sleep study done in 01/31/2024 showing very mild or borderline obstructive sleep apnea AHI of 5.5 position therapy PFSH Medical History (Updated 05/05/24 @ 14:31 by Jas Tellez MD) Colon cancer screening Annual physical exam Obesity (BMI 30-39.9) Cervical cancer screening Constipation Seizure-like activity Impacted cerumen of right ear Bilateral hand pain Bilateral ankle pain Oral lichenoid mucositis Observed seizure-like activity Seizure disorder Disc degeneration, lumbar Spondylosis of lumbar spine Sacroiliitis Renal calculi Peptic ulcer disease GERD (gastroesophageal reflux disease) Migraine TIA (transient ischemic attack) Bipolar disorder Asthma Hypercholesterolemia Vitamin D deficiency Carpal tunnel syndrome Lumbar spondylosis Osteoarthritis of hands, bilateral Surgical History Vocal cord cyst H/O plastic surgery History of arthroscopy of right knee History of lumbar surgery History of abdominoplasty History of gastric surgery LAP-BAND surgery status History of tubal ligation History of tonsillectomy History of cholecystectomy Family History (Updated 05/05/24 @ 14:23 by Jas Tellez MD) Father Throat cancer Esophageal cancer Mother Hypertension Cancer Maternal Grandmother Uterine cancer Maternal Aunt Uterine cancer Maternal Uncle Esophageal cancer Prostate cancer Daughter Oral cancer Social History Household Members: Spouse Housing: House Alcohol intake: never Patient Tobacco Use Status: Former Tobacco user Tobacco use type: Cigarette Years Smoked: 1989 e-Cigarette/Vaping Use: Never Used Second Hand Smoke Exposure: Yes service: No Current occupational status: disabled Cognitive needs: No Hearing needs: No Vision needs: Yes (reading glasses) Questionnaire PHQ-9 Over the last 2 weeks, how often have you been bothered by any of the following problems? 1. Little interest or pleasure in doing things: several days 2. Feeling down, depressed, or hopeless: several days 3. Trouble falling or staying asleep, or sleeping too much: several days 4. Feeling tired or having little energy: several days 5. Poor appetite or overeating: several days 6. Feeling bad about yourself - or that you are a failure or have let yourself or your family down: not at all 7. Trouble concentrating on things, such as reading the newspaper or watching television: more than half the days 8. Moving or speaking so slowly that other people could have noticed. Or the opposite - being so fidgety or restless that you have been moving around a lot more than usual: not at all 9. Thoughts that you would be better off or of hurting yourself in some way: not at all Total score: 7 Depression Screening Interpretation: Positive Depression Screening Done: Yes Source: Developed by Drs. Juma Mckinley, Lani Chen, Vinny Beltrán and colleagues, with an educational shiraz from [employer]. Thrive Questionnaire Date Thrive assessed: 05/05/24 I am a: Patient What is your living situation today?: I have a steady place to live Within the past 12 months, did the food you bought not last and you didn't have the money to get more?: Never true Within the past 12 months, did you worry whether your food would run out before you got money to buy more?: Never true Do you have trouble paying for medicines?: No Do you have trouble getting transportation to medical appointments?: No Do you have trouble paying your heating and electricity bill?: No Do you have trouble taking care of your child, family member or friend?: No Do you have trouble with day-to-day activities such as bathing, preparing meals, shopping, managing finances, etc.?: No Are you currently unemployed and looking for a job?: No Are you interested in more education?: No Currently or been in a relationship where the following occur: No concerns reported THRIVE Score: 0 AUDIT C Alcohol Use Questionnaire (AUDIT-C) 1. How often do you have a drink containing alcohol?: Never Total Score: 0 PEPE-7 AMB Questionnaire PEPE-7 Date PEPE - 7 assessed: 09/20/23 Source: Developed by Drs. Juma Mckinley, Lani Chen, Vinny Beltrán and colleagues, with an educational shiraz from [employer]. Review of Systems Const Denies poor appetite and Denies weakness Eyes Denies no additional complaints ENT Reports Normal hearing present, Denies dizziness, Denies nasal congestion, Denies tinnitus and Denies sore throat Card Denies chest pain, Denies syncope, Denies rapid heart rate and Denies dyspnea Resp Denies cough and Denies dyspnea GI Denies change in stool character, Reports constipation, Denies diarrhea, Denies nausea and Denies vomiting Denies urinary frequency, Denies difficulty voiding and Denies dysuria Neuro Reports Normal hearing present, Denies confusion, Denies dizziness, Denies syncope and Denies weakness Psych Denies confusion Physical exam (Primary Care) Vital Signs: Last Vital Signs Pulse 77 05/05/24 13:40 BP 128/64 05/05/24 13:40 Pulse Ox 94 05/05/24 13:40 Oxygen Delivery Method Room Air 05/05/24 13:40 BMI result Body Mass Index 33.3 Tobacco/Smoking Status: Tobacco use Status Tobacco use date assessed 05/05/24 05/05/24 13:50 Patient Tobacco Use Status Former Tobacco user 05/05/24 13:50 Tobacco use type Cigarette 05/05/24 13:50 e-Cigarette/Vaping Use Never Used 05/05/24 13:50 PHQ-9: PHQ-9 Score PHQ-9: Total score 7 05/05/24 14:14 Depression Screening Interpretation: Positive Thrive Assessment: Date of Thrive Assessment Date Thrive assessed 05/05/24 05/05/24 13:50 Currently or been in a relationship where the following occur: No concerns reported Const General: No confusion Orientation/consciousness: No confusion HENMT Head: Yes normocephalic Ears: external ears normal and TM's normal bilaterally Face and sinus: Yes normal facial exam Mouth: moist mucous membranes Throat: Yes tonsils normal Eyes Conjunctivae: conjunctivae normal Pupils: Equal, round and reactive pupils present and Pupil accommodation reflex normal Direct Ophthalmoscopy: normal light reflex Neck Neck: No lymphadenopathy Thyroid: Thyroid normal Chest Chest palpation & inspection: normal inspection of the chest Resp Effort & Inspection: normal respiratory effort and no audible wheezes Auscultation: clear to auscultation bilaterally, no crackles, no wheezes and lung sounds not diminished Cardio Rate: regular rate Rhythm: regular rhythm Peripheral pulses: radial pulses present and dorsalis pedis present GI Palpation (GI): no masses Auscultation: normal bowel sounds and normoactive bowel sounds Rectal Exam - Female: deferred Skin General skin exam: no rashes or lesions noted Rashes: no rashes Neuro General: No confusion Cranial nerves: Yes Equal, round and reactive pupils present and Yes Normal hearing present Cognition (Neuro): normal cognition Gait exam (Neuro): Normal gait present Motor exam (neuro): 5/5 motor strength present throughout Deep tendon reflexes (DTR's): Right brachioradialis reflex intensity grade: 2+, Left brachioradialis reflex intensity grade: 2+, Right patellar reflex intensity grade: 2+ and Left patellar reflex intensity grade: 2+ Extrem General: No edema Immunizations tetanus-diphtheria toxoids-Td 2 Lf unit-2 Lf unit/0.5 mL IM suspension Performing Provider: Jas Tellez MD [place]forming [place] [facility] Administered by: STEPHANIE Paula on 05/05/24 14:42 Dose Route Admin Location Dispensed Lot Number Expiration Date NDC Marketing Operations Intern 0.5 mL IM Left Deltoid 0.5 mL [id number] 09/18/24 [id number] [employer] VIS Given Date VIS Provided VIS Publication Date 05/05/24 Single Vaccine 21 Eligibility Eligibility Date Funding Source Not [facility] Eligible 05/05/24 [facility] funds Assessment and Plan Assessment & Plan (1) Annual physical exam: Code(s): Z00.00 - Encounter for general adult medical examination without abnormal findings Plan: Patient is advised to eat healthy, keep well hydrated, keep active and have adequate sleep. (2) Obesity (BMI 30-39.9): Code(s): E66.9 - Obesity, unspecified Plan: Diet and exercise (3) Left bundle branch block: Comment: Workup including coronary CTA normal 03/2024 Code(s): I44.7 - Left bundle-branch block, unspecified Plan: Patient has been worked up by Cardiology and within normal limits. (4) GERD (gastroesophageal reflux disease): Comment: December 2019 Code(s): K21.9 - Gastro-esophageal reflux disease without esophagitis Qualifiers: Esophagitis presence: without esophagitis Qualified Code(s): K21.9 - Gastro-esophageal reflux disease without esophagitis Plan: Avoid the foods that causes that usually spicy foods, tomato products, juices, coffee, soda and foods that your sensitive to. After eating do not lie down, allow 3-4 hours before in lie down. And keep the head of bed above 30 degrees to avoid the acid from going up. (5) Bipolar disorder: Comment: [place] Code(s): F31.9 - Bipolar disorder, unspecified Qualifiers: Active/Remission status: currently active Current bipolar episode type: depressed Current episode severity: moderate Qualified Code(s): F31.32 - Bipolar disorder, current episode depressed, moderate Plan: Continue with counseling and therapy (6) Hypercholesterolemia: Code(s): E78.00 - Pure hypercholesterolemia, unspecified Plan: Avoid fried foods, chicken skin, eggs, butter margarine, pastries and meat. Be it pork or beef they have a lot of cholesterol (7) Colon cancer screening: Code(s): Z12.11 - Encounter for screening for malignant neoplasm of colon Orders: Orders Td State Immunization Today Z23 - Encounter for immunization Referrals Gastroenterology Referral Z12.11 - Encounter for screening for malignant neoplasm of colon Medications: New tetanus-diphtheria toxoids-Td 0.5 mL IM ONCE 0.5 mL 0RF Z23 - Encounter for immunization Changed From liraglutide (weight loss) (Saxenda) 1.8 mg (0.3 mL) subcut DAILY 15 mL 1RF E66.9 - Obesity, unspecified To liraglutide (weight loss) (Saxenda) 2.4 mg (0.4 mL) subcut DAILY 12 mL 2RF 30 days E66.9 - Obesity, unspecified Coding Level of Care Code Est Pt Prev Care 40-64y(48877) Diagnoses Annual physical exam Z00.00 Obesity (BMI 30-39.9) E66.9 Left bundle branch block I44.7 Gastroesophageal reflux disease without esophagitis K21.9 Esophagitis presence: without esophagitis Bipolar affective disorder, currently depressed, moderate F31.32 Active/Remission status: currently active Current bipolar episode type: depressed Current episode severity: moderate Hypercholesterolemia E78.00 Colon cancer screening Z12.11
[2024-05-05 13:40] VITALS: BP 128/64; PULSE 77; O2SAT 94; BMI 33.3
== END 2024-05-05 14:49 | disposition home or self-care (01) ==
PROVIDERS: PCP Internal Medicine; Visit Provider Internal Medicine
DX: Z00.00 Encounter for general adult medical examination without abnormal findings (principal); E66.9 Obesity, unspecified; F31.32 Bipolar disorder, current episode depressed, moderate; Z68.33 Body mass index [BMI] 33.0-33.9, adult; I44.7 Left bundle-branch block, unspecified; Z23 Encounter for immunization; K21.9 Gastro-esophageal reflux disease without esophagitis; E78.00 Pure hypercholesterolemia, unspecified; Z12.11 Encounter for screening for malignant neoplasm of colon

== ENCOUNTER → 2024-05-05 13:33 | Outpatient (BNVA) | payer OTHER, SELFPAY | PROVIDERS: PCP Internal Medicine; Visit Provider Internal Medicine | DX: Z00.01 Encounter for general adult medical examination with abnormal findings (principal); Z23 Encounter for immunization; E66.9 Obesity, unspecified; I44.7 Left bundle-branch block, unspecified; K21.9 Gastro-esophageal reflux disease without esophagitis; F31.32 Bipolar disorder, current episode depressed, moderate; E78.00 Pure hypercholesterolemia, unspecified; Z79.899 Other long term (current) drug therapy | CPT/HCPCS: 90471; 90714; 99396 ==

== ENCOUNTER 2024-08-07 14:29 | Outpatient (AMB) | payer OTHER, SELFPAY ==
[2024-08-07 14:36] VITALS: BP 102/78; PULSE 90; O2SAT 95; BMI 31.9
--- NOTE | 2024-08-07 14:36 | A.OFFPC_ITS ---
Vital Signs 08/07/24 14:36 Height 5 ft 5 in Weight 192 lb BMI 31.9 BP 102/78 Blood Pressure Location Rt brachial Position Sitting Pulse 90 Pulse Source Pulse Oximeter Pulse Oximetry (%) 95 Oxygen Delivery Method Room Air Intake Visit Reasons: obesity Halfway House Counselor Required: No Accompanied by: Self / Same As Patient Allergies Penicillins [PENICILLINS] Allergy (Intermediate, Verified 08/07/24 14:37) HIVES latex [Latex] Allergy (Mild, Verified 08/07/24 14:37) RASH Medication List - Last Reconciled 08/07/24 by Slime Walton PA-C albuterol sulfate 2.5 mg (3 mL) inhalation QID PRN ascorbate calcium (vitamin C) 500 mg PO DAILY clobetasol 0.05% 1 appl topical BID clonazepam 1 mg PO BEDTIME desvenlafaxine ER 100 mg PO DAILY gabapentin 300 mg PO .QD 15 days linaclotide (Linzess) 290 mcg PO DAILY liraglutide (weight loss) (Saxenda) 2.4 mg (0.4 mL) subcut DAILY 30 days melatonin 5 mg PO BEDTIME PRN multivitamin 1 tab PO DAILY nitrofurantoin monohyd/m-cryst 100 mg (Macrobid) 100 mg PO Q12H 7 days omeprazole 20 mg PO BID oxcarbazepine 600 mg PO BID thiamine HCl (vitamin B1) 100 mg PO DAILY topiramate 25 mg PO BID Ventolin HFA 90 mcg/actuation (albuterol sulfate) 2 puffs PO Q6H PRN 30 days NS Tobacco use date assessed: 05/05/24 Dental Screening Dental Screen Date: 09/20/23 HPI obesity HPI Details 59-year-old female with past medical his tory of hypercholesterolemia and bipolar disorder last seen April [address] Tellez coming in for follow up on obesity. Today she tells us she has been walking primarily for her exercising and has been working on diet modification. She states she often skips meals and we will go long periods of time without protein intake. She states she has been sleeping poorly and we will occasionally wake up in the middle of the night hungry and have a snack before going back to sleep. She states the last 3 weeks she has been feeling progressively more tired and is not sleeping through the night despite the use of melatonin and clonazepam. She follows with an oral surgeon in [place] for mouth sores. [facility] Medical History (Updated 08/07/24 @ 15:00 by Slime Walton PA-C) Colon cancer screening Annual physical exam Obesity (BMI 30-39.9) Cervical cancer screening Constipation Seizure-like activity Impacted cerumen of right ear Bilateral hand pain Bilateral ankle pain Oral lichenoid mucositis Observed seizure-like activity Seizure disorder Disc degeneration, lumbar Spondylosis of lumbar spine Sacroiliitis Renal calculi Peptic ulcer disease GERD (gastroesophageal reflux disease) Migraine TIA (transient ischemic attack) Bipolar disorder Asthma Hypercholesterolemia Vitamin D deficiency Carpal tunnel syndrome Lumbar spondylosis Osteoarthritis of hands, bilateral Surgical History Vocal cord cyst H/O plastic surgery History of arthroscopy of right knee History of lumbar surgery History of abdominoplasty History of gastric surgery LAP-BAND surgery status History of tubal ligation History of tonsillectomy History of cholecystectomy Family History Father Throat cancer Esophageal cancer Mother Hypertension Cancer Maternal Grandmother Uterine cancer Maternal Aunt Uterine cancer Maternal Uncle Esophageal cancer Prostate cancer Daughter Oral cancer Social History Household Members: Spouse Housing: House Alcohol intake: never Patient Tobacco Use Status: Former Tobacco user Tobacco use type: Cigarette Years Smoked: 1989 e-Cigarette/Vaping Use: Never Used Second Hand Smoke Exposure: Yes service: No Current occupational status: disabled Cognitive needs: No Hearing needs: No Vision needs: Yes (reading glasses) Questionnaire Thrive Questionnaire Date Thrive assessed: 05/05/24 PEPE-7 AMB Questionnaire PEPE-7 Date PEPE - 7 assessed: 09/20/23 Source: Developed by Drs. Juma Mckinley, Lani Chen, Vinny Beltrán and colleagues, with an educational shiraz from [employer]. Review of Systems Const Denies body aches, Denies chills, Reports fatigue, Denies fever(s), Denies headache(s) and Denies poor appetite Eyes Reports no additional complaints ENT Denies dizziness and Denies headache(s) Card Denies chest pain, Denies lightheadedness and Denies dyspnea Resp Denies cough and Denies dyspnea GI Denies abdominal pain, Denies constipation, Denies diarrhea, Denies nausea and Denies vomiting Reports no additional complaints Musc Reports no additional complaints and Denies abnormal gait Skin/Breast Reports system reviewed and no additional complaints, except as documented Neuro Denies abnormal gait, Denies dizziness and Denies headache(s) Psych Reports no additional complaints Endo Reports fatigue Physical exam (Primary Care) Vital Signs: Last Vital Signs Pulse 90 08/07/24 14:36 BP 102/78 08/07/24 14:36 Pulse Ox 95 08/07/24 14:36 Oxygen Delivery Method Room Air 08/07/24 14:36 BMI result Body Mass Index 31.9 Tobacco/Smoking Status: Tobacco use Status Tobacco use date assessed 05/05/24 08/07/24 14:37 Patient Tobacco Use Status Former Tobacco user 08/07/24 14:37 Tobacco use type Cigarette 08/07/24 14:37 e-Cigarette/Vaping Use Never Used 08/07/24 14:37 Thrive Assessment: Date of Thrive Assessment Date Thrive assessed 05/05/24 08/07/24 14:37 Const General: cooperative, healthy appearing, comfortable and no acute distress Orientation/consciousness: patient oriented x3 HENMT Head: Yes normocephalic Ears: hearing grossly normal bilaterally General nose exam: Normal external nose present Eyes General: appearance normal, both eyes and all related structures Conjunctivae: conjunctivae normal Neck Neck: Yes full ROM and Yes no lymphadenopathy Resp Effort & Inspection: normal respiratory effort Auscultation: clear to auscultation bilaterally, no crackles, no rales, no rhonchi and no wheezes Cardio Rate: regular rate Rhythm: regular rhythm Skin General skin exam: no rashes or lesions noted Neuro General: patient oriented x3 Gait exam (Neuro): Normal gait present Extrem General: Yes normal to inspection, Yes full ROM and No edema Psych Affect: normal affect Attitude: cooperative Insight: Good insight present (Psych) Judgement: Good judgement present (Psych) Coding Level of Care Code Est Pt Level 4 (59999) Diagnoses Fatigue R53.83 Obesity (BMI 30-39.9) E66.9 Lichen planus L43.9 Assessment & Plan Assessment & Plan (1) Fatigue: Code(s): R53.83 - Other fatigue Category: Medical Plan: Patient complaining of fatigue states she will wake up often throughout the night. Advised patient to have regularly scheduled meals so she does not wake up in the middle of the night hungry. Continue to use melatonin nightly and clonazepam as needed. Ordered for inflammatory markers and VALENTÍN at patient request. Denies any shortness of breath or snoring in the middle of the night. (2) Obesity (BMI 30-39.9): Code(s): E66.9 - Obesity, unspecified Category: Medical Plan: Healthy diet and regular exercise is encouraged. Currently on Saxenda and has lost 10 lb since December. Plan to increase 6 and to highest dose at next refill. (3) Lichen planus: Comment: The pathogenesis of oral LP is not fully understood, but appears to involve an immune-mediated cytotoxic reaction against epithelial cells. Activated CD8+ T cells may play a tiwari role. The inciting factors for oral LP are unknown. Since there is no cure for oral LP, the primary goals of treatment are the alleviation of symptoms and the minimization of scarring from erosive lesions. Patients with asymptomatic reticular oral LP do not require treatment. Oral LP is managed with a combination of nonpharmacologic and pharmacologic measures, with some variability in the therapeutic approach based upon patient- specific factors (eg, disease extent, tolerance to treatment, comorbid disease) and treatment availability. In general, local therapy is preferred over systemic therapy to minimize the risk of serious adverse effects related to treatment. Topical corticosteroids are the first-line local treatment; additional options for local therapy include topical calcineurin inhibitors and intralesional corticosteroid injections. Systemic therapy is primarily reserved for patients who fail to respond sufficiently to local therapy or for patients with both oral LP and extraoral mucosal involvement. Code(s): L43.9 - Lichen planus, unspecified Category: Medical Plan: Continue to follow with oral surgeon in [place] and we will request these notes from this office. Plan This note was constructed using voice recognition software. While every effort has been made to ensure accuracy and circuit design engineer, still areas may have been included sometimes these areas may affect the content or meeting of the given symptoms. Total time spent caring for the patient today was 20 minutes. This includes time spent before the visit reviewing the chart, time spent during the visit, and time spent after the visit and documentation. Orders: Orders C Reactive Protein Today R53.83 - Other fatigue VALENTÍN Reflex Titer and Pattern Today R53.83 - Other fatigue Erythrocyte Sedimentation Rate Today R53.83 - Other fatigue
== END 2024-08-07 15:12 | disposition home or self-care (01) ==
PROVIDERS: PCP Internal Medicine
DX: R53.83 Other fatigue (principal); E66.9 Obesity, unspecified; L43.9 Lichen planus, unspecified; Z68.31 Body mass index [BMI] 31.0-31.9, adult

== ENCOUNTER 2024-08-15 08:37 | Outpatient (REF) | payer OTHER, SELFPAY ==
[2024-08-15 10:04] LABS: C Reactive Protein 0.74 mg/dL (< or = 0.50)
[2024-08-15 10:15] LABS: Erythrocyte Sedimentation Rate 8 MM/HR (0-20)
[2024-08-18 15:39] LABS: Anti Nuclear Antibody Screen NEGATIVE (NEGATIVE)
== END 2024-08-15 08:38 | disposition home or self-care (01) ==
LOC: HO.LAB 08:37
PROVIDERS: PCP Internal Medicine
DX: R53.83 Other fatigue (principal)
CPT/HCPCS: 36415; 85652; 86038; 86140

== ENCOUNTER 2024-11-06 13:50 | Outpatient (AMB) | payer OTHER, SELFPAY ==
--- NOTE | 2024-11-06 13:53 | A.OFFPC_ITS ---
Vital Signs 11/06/24 13:55 Height 5 ft 5 in Weight 187 lb BMI 31.1 BP 130/70 Blood Pressure Location Lt brachial Position Sitting Pulse 76 Pulse Source Pulse Oximeter Temp 97.5 F Temp Source Temporal Artery Scan Pulse Oximetry (%) 96 Oxygen Delivery Method Room Air Intake Visit Reasons: f/u obesity Intake Note: Patient is here to follow up on Obesity. Baggage And Mail Agent Required: No Board Stacker: Not Required per policy Accompanied by: Self / Same As Patient Allergies Penicillins [PENICILLINS] Allergy (Intermediate, Verified 11/06/24 14:11) HIVES latex [Latex] Allergy (Mild, Verified 11/06/24 14:11) RASH Medication List - Last Reconciled 11/06/24 by Slime Walton PA-C albuterol sulfate 2.5 mg (3 mL) inhalation QID PRN ascorbate calcium (vitamin C) 500 mg PO DAILY clobetasol 0.05% 1 appl topical BID clonazepam 1 mg PO BEDTIME desvenlafaxine ER 100 mg PO DAILY gabapentin 300 mg PO .QD 15 days linaclotide (Linzess) 290 mcg PO DAILY melatonin 5 mg PO BEDTIME PRN meloxicam 15 mg PO DAILY PRN multivitamin 1 tab PO DAILY omeprazole 20 mg PO BID oxcarbazepine 600 mg PO BID thiamine HCl (vitamin B1) 100 mg PO DAILY topiramate 25 mg PO BID Ventolin HFA 90 mcg/actuation (albuterol sulfate) 2 puffs PO Q6H PRN 30 days NS Tobacco use date assessed: 11/06/24 Dental Screening Dental Screen Date: 11/06/24 Did you have a dental visit in the last 12 months?: Yes Did you have a dental problem in the last 6 months where you did not have access to dental care?: No Was dental information given to patient?: Patient has dentist HPI f/u obesity HPI Details 59-year-old female with past medical his tory of hypercholesterolemia and bipolar disorder last seen 07/2024 coming in for follow up.? The patient is a 59-year-old female presenting with difficulty obtaining insurance coverage for prescribed weight loss injections. The issue arose after Saxenda, which she was using for weight loss, was no longer approved by the patient's insurance if used for over six months in one calendar year. Despite discontinuing Saxenda two months ago, the patient has not gained weight and has lost 5 pounds since the last visit. She reports prior success with weight management medications under the care of her previous physician. Additionally, the patient is being treated for lichen planus in the mouth with a topical chemotherapy medication. This has been painful and interferes with eating, requiring the use of gauze to prevent swallowing the medication. [facility] Medical History Colon cancer screening Annual physical exam Obesity (BMI 30-39.9) Cervical cancer screening Constipation Seizure-like activity Impacted cerumen of right ear Bilateral hand pain Bilateral ankle pain Oral lichenoid mucositis Observed seizure-like activity Seizure disorder Disc degeneration, lumbar Spondylosis of lumbar spine Sacroiliitis Renal calculi Peptic ulcer disease GERD (gastroesophageal reflux disease) Migraine TIA (transient ischemic attack) Bipolar disorder Asthma Hypercholesterolemia Vitamin D deficiency Carpal tunnel syndrome Lumbar spondylosis Osteoarthritis of hands, bilateral Surgical History Hx of colonoscopy Vocal cord cyst H/O plastic surgery History of arthroscopy of right knee History of lumbar surgery History of abdominoplasty History of gastric surgery LAP-BAND surgery status History of tubal ligation History of tonsillectomy History of cholecystectomy Family History Father Throat cancer Esophageal cancer Mother Hypertension Cancer Maternal Grandmother Uterine cancer Maternal Aunt Uterine cancer Maternal Uncle Esophageal cancer Prostate cancer Daughter Oral cancer Social History Household Members: Spouse Housing: House Alcohol intake: never Patient Tobacco Use Status: Former Tobacco user Tobacco use type: Cigarette Years Smoked: quit 1989 e-Cigarette/Vaping Use: Never Used Second Hand Smoke Exposure: Yes service: No Current occupational status: disabled Cognitive needs: No Hearing needs: No Vision needs: Yes (reading glasses) Questionnaire PHQ-9 Over the last 2 weeks, how often have you been bothered by any of the following problems? 1. Little interest or pleasure in doing things: not at all 2. Feeling down, depressed, or hopeless: not at all 3. Trouble falling or staying asleep, or sleeping too much: not at all 4. Feeling tired or having little energy: not at all 5. Poor appetite or overeating: not at all 6. Feeling bad about yourself - or that you are a failure or have let yourself or your family down: not at all 7. Trouble concentrating on things, such as reading the newspaper or watching television: not at all 8. Moving or speaking so slowly that other people could have noticed. Or the opposite - being so fidgety or restless that you have been moving around a lot more than usual: not at all 9. Thoughts that you would be better off or of hurting yourself in some way: not at all Total score: 0 Depression Screening Interpretation: Negative Depression Screening Done: Yes Source: Developed by Drs. Juma Mckinley, Lani Chen, Vinny Beltrán and colleagues, with an educational shiraz from [employer]. Thrive Questionnaire Date Thrive assessed: 11/06/24 I am a: Patient What is your living situation today?: I have a steady place to live Within the past 12 months, did the food you bought not last and you didn't have the money to get more?: Never true Within the past 12 months, did you worry whether your food would run out before you got money to buy more?: Never true Do you have trouble paying for medicines?: No Do you have trouble getting transportation to medical appointments?: No Do you have trouble paying your heating and electricity bill?: No Do you have trouble taking care of your child, family member or friend?: No Do you have trouble with day-to-day activities such as bathing, preparing meals, shopping, managing finances, etc.?: No Are you currently unemployed and looking for a job?: No Are you interested in more education?: No Please select the resources that you would like help with: None Currently or been in a relationship where the following occur: No concerns reported THRIVE Score: 0 AUDIT C Alcohol Use Questionnaire (AUDIT-C) 1. How often do you have a drink containing alcohol?: Never Total Score: 0 PEPE-7 AMB Questionnaire PEPE-7 Date PEPE - 7 assessed: 11/06/24 Feeling nervous, anxious, or on edge: 0 = Not at all Not being able to stop or control worryin = Not at all Worrying too much about different things: 0 = Not at all Trouble relaxin = Not at all Being so restless that it is hard to sit still: 0 = Not at all Becoming easily annoyed or irritable: 0 = Not at all Feeling afraid as if something awful might happen: 0 = Not at all Total PEPE-7 score (0-4 normal; 5-9 mild; 10-14 moderate; 15-21 severe): 0 Source: Developed by Drs. Juma Mckinley, Lani Chen, Vinny Beltrán and colleagues, with an educational shiraz from [employer]. Review of Systems Const Denies body aches, Denies chills, Denies fever(s), Denies headache(s) and Denies poor appetite Eyes Reports no additional complaints ENT Denies dysphagia, Denies dizziness, Denies headache(s) and Denies odynophagia Card Denies chest pain, Denies syncope, Denies edema, Denies irregular heart rhythm, Denies lightheadedness and Denies dyspnea Resp Denies cough and Denies dyspnea GI Denies abdominal pain, Denies constipation, Denies dysphagia, Denies diarrhea, Denies nausea, Denies odynophagia and Denies vomiting Reports no additional complaints Musc Reports no additional complaints and Denies abnormal gait Skin/Breast Reports system reviewed and no additional complaints, except as documented Neuro Denies abnormal gait, Denies dizziness, Denies syncope and Denies headache(s) Psych Reports no additional complaints Physical exam (Primary Care) Vital Signs: Last Vital Signs Temp 97.5 F 11/06/24 13:55 Pulse 76 11/06/24 13:55 BP 130/70 11/06/24 13:55 Pulse Ox 96 11/06/24 13:55 Oxygen Delivery Method Room Air 11/06/24 13:55 BMI result Body Mass Index 31.1 Tobacco/Smoking Status: Tobacco use Status Tobacco use date assessed 11/06/24 11/06/24 14:01 Patient Tobacco Use Status Former Tobacco user 11/06/24 14:01 Tobacco use type Cigarette 11/06/24 14:01 e-Cigarette/Vaping Use Never Used 11/06/24 14:01 PHQ-9: PHQ-9 Score PHQ-9: Total score 0 11/06/24 14:06 Depression Screening Interpretation: Negative Thrive Assessment: Date of Thrive Assessment Date Thrive assessed 11/06/24 11/06/24 14:01 Currently or been in a relationship where the following occur: No concerns reported Const General: cooperative, healthy appearing, comfortable and no acute distress Orientation/consciousness: patient oriented x3 HENMT Head: Yes normocephalic Ears: hearing grossly normal bilaterally General nose exam: Normal external nose present Eyes General: appearance normal, both eyes and all related structures Conjunctivae: conjunctivae normal Neck Neck: Yes full ROM and Yes no lymphadenopathy Resp Effort & Inspection: normal respiratory effort Auscultation: clear to auscultation bilaterally, no crackles, no rales, no rhonchi and no wheezes Cardio Rate: regular rate Rhythm: regular rhythm Skin General skin exam: no rashes or lesions noted Neuro General: patient oriented x3 Gait exam (Neuro): Normal gait present Extrem General: Yes normal to inspection, Yes full ROM and No edema Psych Affect: normal affect Attitude: cooperative Insight: Good insight present (Psych) Judgement: Good judgement present (Psych) Coding Level of Care Code Est Pt Level 3 (53372) Diagnoses Obesity (BMI 30-39.9) E66.9 Gastroesophageal reflux disease without esophagitis K21.9 Esophagitis presence: without esophagitis Oral lichenoid mucositis K12.39; L28.0 Assessment & Plan Assessment & Plan (1) Obesity (BMI 30-39.9): Code(s): E66.9 - Obesity, unspecified Category: Medical Plan: Healthy diet and regular exercise is encouraged. Noted 5 lb weight loss since last visit. I plan to attempt to prescribe Wegovy, depending on whether insurance coverage can be obtained, due to the patient's success and need for a weight management strategy. The patient reported a reduction in weight, yet we require ongoing monitoring due to medication changes. Should there be difficul ties with insurance coverage for medications, we will explore structured weight management programs. (2) GERD (gastroesophageal reflux disease): Comment: December 2019 Code(s): K21.9 - Gastro-esophageal reflux disease without esophagitis Category: Medical Qualifiers: Esophagitis presence: without esophagitis Qualified Code(s): K21.9 - Gastro-esophageal reflux disease without esophagitis Plan: Avoid trigger foods such as citrus, tomato products, soda, caffeine, spicy foods and other foods that may be irritating to your stomach. Avoid laying flat 3-4 hours after eating and elevate the head of the bed 30 degrees to prevent acid from moving into the esophagus. Continue on Omeprazole. (3) Oral lichenoid mucositis: Code(s): K12.39 - Other oral mucositis (ulcerative); L28.0 - Lichen simplex chronicus Category: Medical Plan: The patient continues to use the topical chemotherapy for lichen planus while managing pain and dietary restrictions related to this condition. Clinical follow-up from the [facility] specialist will be vital in ongoing oral health management, and updates following her next specialist visit are necessary for a comprehensive care plan. Plan This note was constructed using voice recognition software. While every effort has been made to ensure accuracy and voice over announcer, still areas may have been included sometimes these areas may affect the content or meeting of the given symptoms. Total time spent caring for the patient today was 20 minutes. This includes time spent before the visit reviewing the chart, time spent during the visit, and time spent after the visit and documentation. Patient was informed and verbally consented to the use of an ambient scribe for clinic note documentation during this visit. Medications: New semaglutide (weight loss) (Hilary) administer weeks 1 through 4 of therapy 0.25 mg (0.5 mL) subcut QWEEK 2 mL 0RF Refilled Ventolin HFA 90 mcg/actuation (albuterol sulfate) 2 puffs PO Q6H 30 days PRN 8 grams 1RF for muscle spasm NS melatonin 5 mg PO BEDTIME PRN 30 tabs 0RF sleep B02.8 - Zoster with other complications albuterol sulfate 2.5 mg (3 mL) inhalation QID PRN 180 mL 0RF shortness of breath or wheezing J45.20 - Mild intermittent asthma, uncomplicated
[2024-11-06 13:55] VITALS: BP 130/70; PULSE 76; TEMP 36.4; O2SAT 96; BMI 31.1
--- OUTSIDE RECORDS SUMMARY | 2024-11-06 15:36 | XMS_ITS | Clinical Summary ---
Author Organization [address] [facility] Address [address] [place] [address] Phone Care Team Providers Care Wood Science Professor Name Role Phone Jas Tellez MD Primary Care Provider Allergies Active Allergy Reactions Criticality Noted Date Comments Latex 01/21/2018 Penicillin G 01/21/2018 Medications albuterol HFA (PROAIR HFA ; PROVENTIL HFA ; VENTOLIN HFA) 90 mcg/actuation inhaler USE 2 PUFFS BY MOUTH EVERY 6 HOURS NEEDED 0 Active cephalexin (KEFLEX) 500 mg capsule Take 1 capsule (500 mg total) by mouth every 6 (six) hours. 4 Active clonazePAM (KlonoPIN) 1 mg tablet TAKE 1 TABLET BY MOUTH EVERY DAY AT BEDTIME & ADDITIONAL 1/2 TABLET DAILY NEEDED 0 Active desvenlafaxine 100 mg tablet extended release 24 hr Take 1 tablet by mouth 1 (one) time each day. 4 Active famotidine (PEPCID) 20 mg tablet Take 1 tablet (20 mg total) by mouth 2 (two) times a day. 1 Active fluticasone propionate (FLONASE) 50 mcg/actuation nasal spray USE 1 SPRAY IN EACH NOSTRIL ONCE A DAY NEEDED FOR CONGESTION 0 Active gabapentin (NEURONTIN) 300 mg capsule Take 1 capsule (300 mg total) by mouth. 0 Active hydrocortisone 2.5 % ointment PLEASE SEE ATTACHED FOR DETAILED DIRECTIONS 4 Active OXcarbazepine (TRILEPTAL) 300 mg tablet Take 1 tablet (300 mg total) by mouth at bedtime. 0 Active OXcarbazepine (TRILEPTAL) 600 mg tablet Take 1 tablet (600 mg total) by mouth. 4 Active predniSONE (DELTASONE) 20 mg tablet Take 1 tablet (20 mg total) by mouth 1 (one) time each day. 4 Active semaglutide (Wegovy) 0.25 mg/0.5 mL injection pen 0.25 MG (0.5 ML) SUBCUTANEOUSLY EVERY WEEK ADMINISTER WEEKS 1 THROUGH 4 OF THERAPY - PA DENIED 4 Active topiramate (TOPAMAX) 25 mg tablet Take 1 tablet (25 mg total) by mouth 2 (two) times a day. 4 Active valACYclovir (VALTREX) 1 gram tablet Take 1 tablet (1,000 mg total) by mouth every 8 (eight) hours. 4 Active cariprazine (Vraylar) 1.5 mg capsule Take 1 capsule (1.5 mg total) by mouth 1 (one) time each day. 4 Active meloxicam (MOBIC) 15 mg tablet 0 Active melatonin 5 mg tablet Take 1 tablet (5 mg total) by mouth at bedtime as needed. 0 Active desvenlafaxine succinate (PRISTIQ) 100 mg 24 hr tablet 5 Active linaCLOtide (Linzess) 290 mcg capsule Take 1 capsule (290 mcg total) by mouth 1 (one) time each day. 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 Had a neg rheum w/u. Chronic constipation 12/25/2019 GERD (gastroesophageal reflux disease) 8 Kidney stone 03/02/2018 Seizure disorder 03/02/2018 Anxiety 03/02/2018 Depression 03/02/2018 Encounters Date Type Department Care Team Description 08/17/2024 1:20 PM EST Office Visit Gastroenterology - [place] [address] [place] [address] Christina Marti NP Chronic constipation (Primary Dx); Gastroesophageal reflux disease without esophagitis from Last 3 Months Surgical History Surgery Date Site/Laterality Comments OTHER SURGICAL HISTORY PROCEDURE: ---- OTHER ----; COMMENT: gastric band converted to sleeve gastrectomy OTHER SURGICAL HISTORY PROCEDURE: ---- OTHER ----; COMMENT: abdominoplasty OTHER SURGICAL HISTORY 2015 PROCEDURE: OH LAPT RPR PARAESOPH HIATAL HERNIA W/MESH CHOLECYSTECTOMY PROCEDURE: HISTORICAL CHOLECYSTECTOMY KNEE SURGERY PROCEDURE: HISTORICAL KNEE SURGERY OTHER SURGICAL HISTORY PROCEDURE: ---- OTHER ----; COMMENT: liposuction, bilateral brachioplasty BACK SURGERY PROCEDURE: HISTORICAL BACK SURGERY; COMMENT: fatty tumor removed from lumbar disk OTHER SURGICAL HISTORY PROCEDURE: ---- OTHER ----; COMMENT: vocal cord tumor removed UPPER GASTROINTESTINAL ENDOSCOPY 06/19/2020 PROCEDURE: [place] UPPER GI ENDOSCOPY PERFORMED; COMMENT: H.pylori positive and esophagus biopsy consistent with GERD COLONOSCOPY 06/19/2020 PROCEDURE: HISTORICAL COLONOSCOPY; COMMENT: diverticulosis Medical History Medical History Date Comments Seizure disorder (CMS/HCC) 03/02/2018 DX:Se izure disorder (HCC) History of bariatric surgery 03/02/2018 DX: History of bariatric surgery; COMMENT: Gastric band converted to sleeve gastrectomy GERD (gastroesophageal reflu x disease) 03/02/2018 DX:GERD (gastroesophageal re flux disease) Anxiety 03/02/2018 DX:Anxiety Depression 03/02/2018 DX:Depression Kidney stone 03/02/2018 DX:Kidney stone H. pylori infection DX:H. pylori infection; COMMENT: eradication confirmed 09/2020 Family History Medical History Relation Name Comments Throat cancer Father Uterine cancer Mother Relation Name Status Comments Father Mother Social History Tobacco Use Types Packs/Day Years Used Date Smoking Tobacco: Former Smokeless Tobacco: Never Alcohol Use Standard Drinks/Week Comments Yes 0 (1 standard drink = 0.6 oz pur e alcohol) Comments Unknown Sex and Gender Information Value Date Recorded Sex Assigned at Not on file Legal Sex Female 8:58 AM EST Gender Identity Not on file Sexual Orientation Not on file Obstetrics History Last Filed Vital Signs Vital Sign Reading Time Taken Comments Blood Pressure 115/80 08/17/2024 1:21 PM EST Pulse 94 08/17/2024 1:21 PM EST Temperature - - Respiratory Rate - - Oxygen Saturation 95% 08/17/2024 1:21 PM EST Inhaled Oxygen Concentration - - Weight 89.4 kg (197 lb) 08/17/2024 1:21 PM EST Height 165.1 cm (5' 5 ) 08/17/2024 1:21 PM EST Body Mass Index 32.78 08/17/2024 1:21 PM EST Plan of Treatment Health Maintenance Due Date Last Done Comments Breast Cancer Screening 1965 Cervical Cancer Screening: Pap Smear 1984 Pneumococcal Vaccine: 50+ Years (2 of 2 - PCV) 12/27/2019 12/26/2018 Cholesterol Screening (Lipid Panel) 07/18/2022 Depression Screening 07/18/2022 HIV Screening 07/18/2022 Hepatitis C Screening 07/18/2022 Medicare Annual Wellness Visit 07/18/2022 Social Influencers of Health Screening 07/18/2022 Zoster Vaccines (2 of 2) 08/20/2023 06/25/2023 COVID-19 Vaccine ( season) 2024 06/23/2021, 12/28/2020, 11/11/2020 Influenza Vaccine (#1) 2024 3, 06/04/2020, 06/15/2019, Additional history exists Colorectal Cancer Screening: Colonoscopy 06/19/2030 06/19/2020 DTaP,Tdap,and Td Vaccines (2 - Td or Tdap) 05/05/2034 05/05/2024 RSV Immunization Patients 60+ Years Old (1 - 1-dose 75+ series) 2038 Pneumococcal Vaccine: Pediatrics (0 to 5 Years) and At-Risk Patients (6 to 64 Years) Aged Out 12/26/2018 No longer eligible based on patient's age to complete this topic HIB Vaccines Aged Out No longer eligi ble based on patient's age to complete this topic HPV Vaccines Aged Out No longer eligi ble based on patient's age to complete this topic Hepatitis A Vaccines Aged Out No long er eligible based on patient's age to complete this topic Hepatitis B Vaccines Aged Out No long er eligible based on patient's age to complete this topic IPV Vaccines Aged Out No longer eligi ble based on patient's age to complete this topic MMR Vaccines Aged Out No longer eligi ble based on patient's age to complete this topic Meningococcal ACWY Vaccine Aged Out N o longer eligible based on patient's age to complete this topic Meningococcal B Vacine Aged Out No lo nger eligible based on patient's age to complete this topic RSV Immunization Patients Under 20 months Aged Out No longer eligible based on patient's age to complete this topic Varicella Vaccines Aged Out No longer eligible based on patient's age to complete this topic Insurance [employer] MEDICARE Member Subscriber Plan / Payer (Ef fective 2018-Present) Name:Eleni Asher Relation to Subscriber:Self Name:Eleni Asher Payer ID:[id number] Group ID:[id number] Type:Not on file Address: [place] [address] [address] [id number] Care Teams Wood Science Professor Relationship Specialty Start Date End Date Jas Tellez MD [address] [place] [address] [address] [facility] [place] [address] PCP - General Internal Medicine 02/02/12
== END 2024-11-06 14:30 | disposition home or self-care (01) ==
LOC: HO.HMCH 13:51
PROVIDERS: PCP Internal Medicine
DX: K21.9 Gastro-esophageal reflux disease without esophagitis (principal); E66.9 Obesity, unspecified; Z68.31 Body mass index [BMI] 31.0-31.9, adult; K12.39 Other oral mucositis (ulcerative); L28.0 Lichen simplex chronicus

== ENCOUNTER → 2024-11-06 13:50 | Outpatient (BNVA) | payer OTHER, SELFPAY | PROVIDERS: PCP Internal Medicine | DX: E66.9 Obesity, unspecified (principal); Z68.31 Body mass index [BMI] 31.0-31.9, adult; K21.9 Gastro-esophageal reflux disease without esophagitis; K12.39 Other oral mucositis (ulcerative); L28.0 Lichen simplex chronicus; Z71.3 Dietary counseling and surveillance | CPT/HCPCS: 99212 ==

== ENCOUNTER 2025-03-13 12:57 | Outpatient (AMB) | payer OTHER, SELFPAY ==
--- NOTE | 2025-03-13 13:02 | A.OFFPC_ITS ---
Vital Signs 03/13/25 13:03 Height 5 ft 5 in Weight 180 lb BMI 30.0 BP 132/58 L Blood Pressure Location Lt brachial Position Sitting Pulse 79 Pulse Source Pulse Oximeter Temp Source Temporal Artery Scan Pulse Oximetry (%) 98 Oxygen Delivery Method Room Air Intake Visit Reasons: f/u obesity Sample Builder Required: No Accompanied by: Self / Same As Patient Allergies Penicillins (PENICILLINS) Allergy (Intermediate, Verified 03/13/25 13:18) HIVES latex (Latex) Allergy (Mild, Verified 03/13/25 13:18) RASH Medication List - Last Reconciled 03/13/25 by Slime Walton PA-C albuterol sulfate 2.5 mg (3 mL) inhalation QID PRN ascorbate calcium (vitamin C) 500 mg PO DAILY clobetasol 0.05% 1 appl topical BID clonazepam 1 mg PO BEDTIME desvenlafaxine ER 100 mg PO DAILY fluocinonide 0.05% 1 appl topical BID [fluorouracil-calcipotriene topical] gabapentin 300 mg PO .QD 15 days linaclotide (Linzess) 290 mcg PO DAILY melatonin 5 mg PO BEDTIME PRN meloxicam 15 mg PO DAILY PRN multivitamin 1 tab PO DAILY omeprazole 20 mg PO BID oxcarbazepine 600 mg PO BID thiamine HCl (vitamin B1) 100 mg PO DAILY tirzepatide (weight loss) (Zepbound) 2.5 mg (0.5 mL) subcut QWEEK topiramate 25 mg PO BID Ventolin HFA 90 mcg/actuation (albuterol sulfate) 2 puffs PO Q6H PRN 30 days NS Tobacco use date assessed: 03/13/25 Dental Screening Dental Screen Date: 03/13/25 Did you have a dental visit in the last 12 months?: Yes Did you have a dental problem in the last 6 months where you did not have access to dental care?: No Was dental information given to patient?: Patient has dentist HPI f/u obesity HPI Details 59-year-old female with past medical his tory of hypercholesterolemia and bipolar disorder last seen 10/2024 coming in for follow up. Presenting with weight management concerns. The patient has a BMI of 30, indicating obesity. She has experienced a 7-pound weight loss since her last visit and has been engaging in regular walking as exercise. She is considering the use of Mounjaro for weight management, pending insurance approval. The patient reports seasonal allergies with occasional ear discomfort, which started approximately two weeks ago. The symptoms are intermittent and not associated with fever or persistent pain. The patient reports that her acid reflux is currently well-controlled. [facility] Medical History Colon cancer screening Annual physical exam Obesity (BMI 30-39.9) Cervical cancer screening Constipation Seizure-like activity Impacted cerumen of right ear Bilateral hand pain Bilateral ankle pain Oral lichenoid mucositis Observed seizure-like activity Seizure disorder Disc degeneration, lumbar Spondylosis of lumbar spine Sacroiliitis Renal calculi Peptic ulcer disease GERD (gastroesophageal reflux disease) Migraine TIA (transient ischemic attack) Bipolar disorder Asthma Hypercholesterolemia Vitamin D deficiency Carpal tunnel syndrome Lumbar spondylosis Osteoarthritis of hands, bilateral Surgical History Hx of colonoscopy Vocal cord cyst H/O plastic surgery History of arthroscopy of right knee History of lumbar surgery History of abdominoplasty History of gastric surgery LAP-BAND surgery status History of tubal ligation History of tonsillectomy History of cholecystectomy Family History Father Throat cancer Esophageal cancer Mother Hypertension Cancer Maternal Grandmother Uterine cancer Maternal Aunt Uterine cancer Maternal Uncle Esophageal cancer Prostate cancer Daughter Oral cancer Social History Household Members: Spouse Housing: House Alcohol intake: never Patient Tobacco Use Status: Former Tobacco user Tobacco use type: Cigarette Years Smoked: quit 1989 e-Cigarette/Vaping Use: Never Used Second Hand Smoke Exposure: Yes service: No Current occupational status: disabled Cognitive needs: No Hearing needs: No Vision needs: Yes (reading glasses) Questionnaire PHQ-9 Over the last 2 weeks, how often have you been bothered by any of the following problems? 1. Little interest or pleasure in doing things: not at all 2. Feeling down, depressed, or hopeless: not at all 3. Trouble falling or staying asleep, or sleeping too much: not at all 4. Feeling tired or having little energy: not at all 5. Poor appetite or overeating: not at all 6. Feeling bad about yourself - or that you are a failure or have let yourself or your family down: not at all 7. Trouble concentrating on things, such as reading the newspaper or watching television: several days 8. Moving or speaking so slowly that other people could have noticed. Or the opposite - being so fidgety or restless that you have been moving around a lot more than usual: not at all 9. Thoughts that you would be better off or of hurting yourself in some way: not at all Total score: 1 Depression Screening Interpretation: Negative Depression Screening Done: Yes 70841 - PHQ-9 Billing: Yes Source: Developed by Drs. Juma Mckinley, Lani Chen, Vinny Beltrán and colleagues, with an educational shiraz from [employer]. Thrive Questionnaire Date Thrive assessed: 03/13/25 I am a: Patient What is your living situation today?: I have a steady place to live Within the past 12 months, did the food you bought not last and you didn't have the money to get more?: I choose not to answer this question Within the past 12 months, did you worry whether your food would run out before you got money to buy more?: I choose not to answer this question Do you have trouble paying for medicines?: No Do you have trouble getting transportation to medical appointments?: I choose not to answer this question Do you have trouble paying your heating and electricity bill?: I choose not to answer this question Do you have trouble taking care of your child, family member or friend?: I choose not to answer this question Do you have trouble with day-to-day activities such as bathing, preparing meals, shopping, managing finances, etc.?: I choose not to answer this question Are you currently unemployed and looking for a job?: I choose not to answer this question Are you interested in more education?: No Please select the resources that you would like help with: Job search/training Currently or been in a relationship where the following occur: No concerns reported THRIVE Score: 0 AUDIT C Alcohol Use Questionnaire (AUDIT-C) 1. How often do you have a drink containing alcohol?: Never Total Score: 0 PEPE-7 AMB Questionnaire PEPE-7 Date PEPE - 7 assessed: 03/13/25 Feeling nervous, anxious, or on edge: 0 = Not at all Not being able to stop or control worryin = Several days Worrying too much about different things: 1 = Several days Trouble relaxin = Several days Being so restless that it is hard to sit still: 1 = Several days Becoming easily annoyed or irritable: 1 = Several days Feeling afraid as if something awful might happen: 0 = Not at all Total PEPE-7 score (0-4 normal; 5-9 mild; 10-14 moderate; 15-21 severe): 5 Source: Developed by Drs. Juma Mckinley, Lani Chen, Vinny Beltrán and colleagues, with an educational shiraz from [employer]. PEPE-7 Assessment Billing PEPE-7 Assessment Tool: PEPE-7 Assessment 87544 Review of Systems Const Denies body aches, Denies chills, Denies fever(s) and Denies headache(s) Eyes Reports no additional complaints ENT Denies dizziness and Denies headache(s) Card Denies chest pain, Denies edema, Denies lightheadedness and Denies dyspnea Resp Denies dyspnea GI Denies abdominal pain, Denies nausea and Denies vomiting Reports no additional complaints Musc Reports no additional complaints and Denies abnormal gait Skin/Breast Reports system reviewed and no additional complaints, except as documented Neuro Denies abnormal gait, Denies dizziness and Denies headache(s) Psych Reports no additional complaints Physical exam (Primary Care) Vital Signs: Last Vital Signs Pulse 79 03/13/25 13:03 BP 132/58 L 03/13/25 13:03 Pulse Ox 98 03/13/25 13:03 Oxygen Delivery Method Room Air 03/13/25 13:03 BMI result Body Mass Index 30.0 Tobacco/Smoking Status: Tobacco use Status Tobacco use date assessed 03/13/25 03/13/25 13:12 Patient Tobacco Use Status Former Tobacco user 03/13/25 13:12 Tobacco use type Cigarette 03/13/25 13:12 e-Cigarette/Vaping Use Never Used 03/13/25 13:12 PHQ-9: PHQ-9 Score PHQ-9: Total score 1 03/13/25 13:12 Depression Screening Interpretation: Negative Thrive Assessment: Date of Thrive Assessment Date Thrive assessed 03/13/25 03/13/25 13:12 Currently or been in a relationship where the following occur: No concerns reported Const General: cooperative, healthy appearing, comfortable and no acute distress Orientation/consciousness: patient oriented x3 HENMT Other: dry, flaky skin of robin ear canal Head: Yes normocephalic Ears: hearing grossly normal bilaterally General nose exam: Normal external nose present Eyes General: appearance normal, both eyes and all related structures Conjunctivae: conjunctivae normal Neck Neck: Yes full ROM and Yes no lymphadenopathy Resp Effort & Inspection: normal respiratory effort Auscultation: clear to auscultation bilaterally, no crackles, no rales, no rhonchi and no wheezes Cardio Rate: regular rate Rhythm: regular rhythm Skin General skin exam: no rashes or lesions noted Neuro General: patient oriented x3 Gait exam (Neuro): Normal gait present Extrem General: Yes normal to inspection, Yes full ROM and No edema Psych Affect: normal affect Attitude: cooperative Insight: Good insight present (Psych) Judgement: Good judgement present (Psych) Coding Level of Care Code Est Pt Level 3 (68766) Diagnoses Obesity (BMI 30-39.9) E66.9 Gastroesophageal reflux disease without esophagitis K21.9 Esophagitis presence: without esophagitis Ear itching L29.9 Additional Codes PEPE-7 Assessment Billing - PEPE-7 Assessment Tool: PEPE-7 Assessment 72900 ([id number]) PHQ-9 - 98437 - PHQ-9 Billing: Yes ([id number]) Assessment & Plan Assessment & Plan (1) Obesity (BMI 30-39.9): Code(s): E66.9 - Obesity, unspecified Category: Medical Plan: Healthy diet and regular exercise is encouraged. Noted 7 lb weight loss since last visit. Hilary was not covered by insurance requesting Mounjaro which was ordered today. She is scheduled to undergo surgery to remove excess skin on 03/26/[address] Sheth. She will consider Mounjaro after her surgery. (2) GERD (gastroesophageal reflux disease): Comment: December 2019 Code(s): K21.9 - Gastro-esophageal reflux disease without esophagitis Category: Medical Qualifiers: Esophagitis presence: without esophagitis Qualified Code(s): K21.9 - Gastro-esophageal reflux disease without esophagitis Plan: Avoid trigger foods such as citrus, tomato products, soda, caffeine, spicy foods and other foods that may be irritating to your stomach. Avoid laying flat 3-4 hours after eating and elevate the head of the bed 30 degrees to prevent acid from moving into the esophagus. Continue on Omeprazole. (3) Ear itching: Code(s): L29.9 - Pruritus, unspecified Category: Medical Plan: No signs of infection. Sent Dermotic oil for itching. Plan The patient will continue her weight management efforts with regular walking and will consider the use of Mounjaro if approved by insurance. Blood work has been ordered to monitor kidney, liver, electrolytes, red and white blood cells, thyroid, vitamins, and cholesterol levels. The patient is advised to fast for 8 to 10 hours before the blood work. She is scheduled for skin removal surgery on the 18th of the month, and the use of Mounjaro may be reconsidered based on post -surgical weight changes. This note was constructed using voice recognition software. While every effort has been made to ensure accuracy and club lounge attendant, still areas may have been included sometimes these areas may affect the content or meeting of the given symptoms. Total time spent caring for the patient today was 20 minutes. This includes time spent before the visit reviewing the chart, time spent during the visit, and time spent after the visit and documentation. Patient was informed and verbally consented to the use of an ambient scribe for clinic note documentation during this visit. Orders: Orders Lipid Panel Today E78.00 - Pure hypercholesterolemia, unspecified TSH reflex Free T4 Today R53.83 - Other fatigue, Z00.00 - Encounter for general adult medical examination without abnormal findings Complete Blood Count Auto Diff Today K21.9 - Gastro-esophageal reflux disease without esophagitis, Z00.00 - Encounter for general adult medical examination without abnormal findings Comprehensive Met. Panel Today K59.00 - Constipation, unspecified, Z00.00 - Encounter for general adult medical examination without abnormal findings Vitamin B12 and Folate Today K59.00 - Constipation, unspecified, Z13.21 - Encounter for screening for nutritional disorder Vitamin D 25-OH Total Today K59.00 - Constipation, unspecified, Z00.00 - Encounter for general adult medical examination without abnormal findings Free T4 (Free Thyroxine) Today R53.83 - Other fatigue, Z00.00 - Encounter for general adult medical examination without abnormal findings Medications: New tirzepatide (Mounjaro) for 4 weeks 2.5 mg (0.5 mL) subcut QWEEK 2 mL 0RF fluocinolone acetonide oil 0.01% (DermOtic Oil) 5 drps otic (ear) left BID 20 mL 0RF 7 days Discontinued tirzepatide (weight loss) (Zepbound) take once weekly for week 1-4 every week subcut Discontinued Reason: Patient no longer taking 2.5 mg (0.5 mL) subcut QWEEK 2 mL 0RF
[2025-03-13 13:03] VITALS: BP 132/58; PULSE 79; O2SAT 98
== END 2025-03-13 13:58 | disposition home or self-care (01) ==
LOC: HO.HMCH 12:57
PROVIDERS: PCP Internal Medicine
DX: E66.9 Obesity, unspecified (principal); K21.9 Gastro-esophageal reflux disease without esophagitis; L29.9 Pruritus, unspecified; Z68.30 Body mass index [BMI] 30.0-30.9, adult

== ENCOUNTER → 2025-03-13 12:57 | Outpatient (BNVA) | payer OTHER, SELFPAY | PROVIDERS: PCP Internal Medicine | DX: K21.9 Gastro-esophageal reflux disease without esophagitis (principal); E66.9 Obesity, unspecified; E78.00 Pure hypercholesterolemia, unspecified; F31.9 Bipolar disorder, unspecified; L29.9 Pruritus, unspecified; Z68.30 Body mass index [BMI] 30.0-30.9, adult; K59.00 Constipation, unspecified | CPT/HCPCS: 96127; 99212 ==

== ENCOUNTER 2025-03-21 09:55 | Outpatient (REF) | payer OTHER, SELFPAY ==
[2025-03-21 10:17] LABS: MANUAL DIFF FLAG NO
--- OUTSIDE RECORDS SUMMARY | 2025-03-21 10:34 | XMS_ITS | Clinical Summary ---
Author Organization [address] [facility] Address [address] [place] [address] Phone Care Team Providers Care Press Supervisor Name Role Phone Jas Tellez MD Primary Care Provider [phone] Allergies Active Allergy Reactions Criticality Noted Date [...] day. 90 each 3 5 026 Active omeprazole (PriLOSEC) [address] capsule TAKE 1 CAPSULE BY MOUTH TWICE A DAY 180 capsule 1 5 Active Active Problems Problem Noted Date Diagnosed [...] disease) 8 Kidney stone 03/02/2018 Seizure disorder ([facility] V24, [facility] V28) 02/07 Anxiety 03/02/2018 Depression 03/02/2018 Surgical History Surgery Date Site/Laterality Comments OTHER SURGICAL HISTORY PROCEDURE: ---- OTHER ----; COMMENT: gastric band converted to sleeve gastrectomy OTHER SURGICAL HISTORY PROCEDURE: ---- OTHER ----; COMMENT: abdominoplasty OTHER SURGICAL HISTORY 2015 PROCEDURE: ID LAPT RPR PARAESOPH HIATAL HERNIA W/MESH CHOLECYSTECTOMY PROCEDURE: HISTORICAL CHOLECYSTECTOMY KNEE SURGERY PROCEDURE: HISTORICAL KNEE SURGERY OTHER SURGICAL HISTORY PROCEDURE: ---- OTHER ----; COMMENT: liposuction, bilateral brachioplasty BACK SURGERY PROCEDURE: HISTORICAL BACK SURGERY; COMMENT: fatty tumor removed from lumbar disk OTHER SURGICAL HISTORY PROCEDURE: ---- OTHER ----; COMMENT: vocal cord tumor removed UPPER GASTROINTESTINAL ENDOSCOPY 06/19/2020 PROCEDURE: ID UPPER GI ENDOSCOPY PERFORMED; COMMENT: H.pylori positive and esophagus biopsy consistent with GERD COLONOSCOPY 06/19/2020 PROCEDURE: HISTORICAL COLONOSCOPY; COMMENT: diverticulosis Medical History Medical History Date Comments Seizure disorder ([facility] V2 4, [facility] V28) 03/02/2018 DX:Seizure disorder ([facility]) History of bariatric surgery 03/02/2018 DX: History [...] 12/27/2019 12/26/2018 Cholesterol Screening (Lipid Panel) 07/18/2022 HIV Screening 07/18/2022 Hepatitis C Screening 07/18/2022 Medicare Annual Wellness Visit 07/18/2022 Social Influencers of Health Screening 07/18/2022 Zoster Vaccines (2 of 2) 08/20/2023 06/25/2023 COVID-19 Vaccine ( season) 2024 06/23/2021, 12/28/2020, 11/11/2020 Depression Screening 08/09/2024 Influenza Vaccine (#1) 2025 3, 06/04/2020, 06/15/2019, Additional history exists Colorectal Cancer Screening: Colonoscopy 06/19/2030 06/19/2020 DTaP,Tdap,and Td Vaccines (2 - Td or Tdap) 05/05/2034 05/05/2024 RSV Immunization Adult Patients (1 - 1-dose 75+ series) 2038 HIB Vaccines Aged Out No longer eligi [...] age to complete this topic Meningococcal B Vaccine Aged Out No l onger eligible based on patient's age to complete [...] ID:[id number] Group ID:[id number] Type:Not on file Address: [address] [facility] [place] [id number] Care Teams Press Supervisor Relationship Specialty Start Date End Date Jas Tellez MD [address] [place] [address] [address] [facility] [place] [address] PCP - General Internal Medicine 02/02/12
--- OUTSIDE RECORDS SUMMARY | 2025-03-21 10:34 | XMS_ITS | Clinical Summary ---
Author Organization [facility] Address [address] [place] [id number] Phone Care Team Providers Care Assault Amphibious Vehicle Officer Name Role Phone Jas Tellez MD Primary Care Provider [phone] Allergies Active Allergy Reactions Criticality Noted Date Comments Latex Erythema Multiforme 08/19/2023 Penicillin Rash Low 08/19/2023 Medications VRAYLAR 1.5 mg capsule Take 1 capsule by mouth every morning. 3 Active clonazePAM (KLONOPIN) 1 MG tablet TAKE 1 TABLET BY MOUTH AT BEDTIME AND HALF A TABLET BY MOUTH EVERY DAY NEEDED 3 Active desvenlafaxine 100 mg Tb24 Take 100 mg by mouth. 2 Active melatonin 5 mg Tab Take by mouth nightly at bedtime as needed. 3 Active meloxicam (MOBIC) 15 MG tablet Take 15 mg by mouth daily as needed. Active OXcarbazepine (TRILEPTAL) 600 MG tablet Take 1 tablet by mouth 2 (two) times a day. 3 Active topiramate (TOPAMAX) 25 MG tablet Take 1 tablet by mouth 2 (two) times a day. 3 Active gabapentin (NEURONTIN) 300 MG capsule 300 mg. 2 Active desvenlafaxine succinate (PRISTIQ) 100 MG 24 hr tablet Take 1 tablet by mouth every morning. 3 Active clobetasol (TEMOVATE) 0.05 % cream USE 1 APPL TOPICALLY 2 TIMES A DAY ORAL LICHEN PLANUS 30 g 1 4 Active lidocaine 2 % Soln Apply 5 mL topically every 4 (four) hours as needed. 200 mL 2 5 Active fluocinonide 0.05 % gelIndications: Lichen planus Apply topically 2 (two) times a day. 30 g 5 5 Active fluocinonide 0.05 % gel Apply topically 3 (three) times a day. 30 g 5 5 06/12/20 25 Active Active Problems Problem Noted Date Diagnosed Date History of bariatric surgery 05/09/2024 Overview (09/09/2024): Gastric band converted to sleeve gastrectomy Class 1 obesity 11/02/2023 Anxiety 03/02/2018 Depression 03/02/2018 GERD (gastroesophageal reflux disease) 8 Seizure disorder 03/02/2018 Encounters Date Type Department Care Team Description 12/20/2024 Documentation [facility] [address] [place] [address] Qiana Jama BDS from Last 3 Months Immunizations Immunization Administration Dates Next Due Influenza Quadrivalent Preservative Free IM 06/09,04/25/2018,04/09/2015 Influenza Quadrivalent w/ Preservative IM 2018 Influenza Recombinant Maribel valent Preservative Free IM 06/04/2020 Pneumococcal polysaccharide PPSV23 12/26/2018 Td (adult),2 Lf Tetanus Toxo id, PF, Adsorbed 05/05/2024 Zoster recombinant 06/25/2023 Family History Medical History Relation Comments Oral cancer Daughter Relation Status Comments Daughter Social History Tobacco Use Types Packs/Day Years Used Date Smoking Tobacco: Former Cigarettes 2 15 1 978 - 1993 Smokeless Tobacco: Never Alcohol Use Standard Drinks/Week Comments Not Currently 0 (1 standard drink = 0.6 oz pur e alcohol) Education Answer Date Recorded Are you interested in more education? Not on myesha e 06/04/2023 Are you concerned about learning? Not on file 06/04/2023 No 06/04/2023 No 06/04/2023 Digital Access Answer Date Recorded No 06/04/2023 No 06/04/2023 Reliable internet access at home? Not on file 06/04/2023 Device with a working camera? Not on file Comments Unknown Sex and Gender Information Value Date Recorded Sex Assigned at Female 02/02/2023 11:03 AM EDT Legal Sex Female 10:47 AM EDT Gender Identity Female 02/02/2023 10:49 AM EDT Sexual Orientation Straight 02/02/2023 11 :03 AM EDT Last Filed Vital Signs Vital Sign Reading Time Taken Comments Blood Pressure 122/72 08/19/2023 3:53 PM EST Pulse 75 08/19/2023 3:53 PM EST Temperature - - Respiratory Rate - - Oxygen Saturation 97% 08/19/2023 3:53 PM EST Inhaled Oxygen Concentration - - Weight - - Height - - Body Mass Index - - Plan of Treatment Upcoming Encounters Date Type Department Care Team (Late st Contact Info) Description 03/22/2025 10:00 AM EDT Appointment [facility] [address] [place] [id number] Lala Domingo DDS, PhD [address] [place] [id number] [email or web address] Maintenance Due Date Last Done Comments Dental Oral Exam 1963 Dental Prophylaxis 1963 Dental X-Ray: Bitewings 1963 LIPID PANEL 1963 DEPRESSION SCREENING 1975 SMOKING Hx and SMOKELESS TOBACCO SCREENING 1976 HEPATITIS C SCREENING 1981 HIV ONE-TIME SCREENING (18-6 5 YEARS) 1981 PAP SMEAR 1984 MAMMOGRAM 2003 COLOGUARD 2008 COLONOSCOPY 2008 COLORECTAL CANCER SCREENING 2008 FIT TEST 2008 FOBT 2008 SIGMOIDOSCOPY 2008 VIRTUAL COLONOSCOPY 2008 PNEUMOCOCCAL VACCINES (50+ years) (2 of 2 - PCV) 12/27/2019 12/26/2018 ZOSTER VACCINES (2 of 2) 08/20/2023 06/25/2023 COVID-19 VACCINE (4 - 2023-2 5 season) 2024 06/23/2021, 12/28/2020, 11/11/2020 Adult Td,Tdap Booster 05/05/2034 05/05/2024 RSV VACCINE (1 - 1-dose 75+ series) 2038 HEPATITIS A VACCINES Aged Out No long er eligible based on patient's age to complete this topic HIB VACCINES Aged Out No longer eligi ble based on patient's age to complete this topic MENINGOCOCCAL VACCINES (ACWY) Aged Out No longer eligible based on patient's age to complete this topic MENINGOCOCCAL VACCINES (B) Aged Out N o longer eligible based on patient's age to complete this topic Medical Devices Not on file Insurance [facility] MEDICARE REPLACEMENT MEDICARE PART A & B [facility] MEDICARE REPLACEMENT MEDICARE PART A & [place] [address] [place] [address] ONE [employer] MEDICARE REPLACEMENT MEDICARE PART A & B [facility] CARE MEDICARE REPLACEMENT MEDICARE PART A & B [facility] CARE MEDICARE REPLACEMENT Member Subscriber Plan / Payer ( fective 2018-Present) Name:Eleni Asher Relation to Subscriber:Self Name:Eleni Asher Payer ID:[id number] (NAIC) Group ID:[id number] Type:Medicare Address: [address] [place] [id number] MEDICARE PART A & B [facility] ONE CARE MEDICARE REPLACEMENT MEDICARE PART A & B Care Teams Assault Amphibious Vehicle Officer Relationship Specialty Start Date End Date Jas Tellez MD [address] [place] [phone] PCP - General Internal Medicine 02/02/23 Additional Source Comments The information contained in this document represents components of the legal health record. It is not the complete legal health record.[facility]
[2025-03-21 10:55] LABS: Hematocrit 41.6 % (37.0-47.0); Hemoglobin 13.7 g/dl (12.0-16.0); Imm Gran Abs Auto 0.01 X10*3/uL (0.00-0.03); Imm Gran Pct Auto 0.2 % (0.0-0.4); Lymphocytes Absolute Auto 1.9 X10*3/uL (1.2-4.9); Mean Corpuscular HGB Conc 32.9 g/dl (31.0-35.0); Mean Corpuscular Hemoglobin 31.1 pg (27.0-33.0); Mean Corpuscular Volume 94.3 fL (80.0-98.0); NRBC Abs Auto 0.000 X10*3/uL (0.0-0.012); NRBC Pct Auto 0.0 /100WBC (0.0-0.2); Platelet Count 314 X10*3/uL (160-400); Red Blood Count 4.41 X10*6/uL (4.20-5.50); White Blood Count 5.4 X10*3/uL (4.8-10.8)
[2025-03-21 11:30] LABS: Alanine Aminotransferase 27 U/L (0-31); Albumin Level 4.1 g/dL (3.5-5.0); Alkaline Phosphatase 119 U/L (39-117); Anion Gap 10 (12-20); Aspartate Amino Transferase 22 U/L (5-31); Blood Urea Nitrogen 15 mg/dL (9-16); Calcium 9.3 mg/dL (8.4-10.2); Carbon Dioxide 31 mmol/L (22-29); Chloride 110 mmol/L (96-108); Cholesterol 226 mg/dL (<200); Estimated Glomerular Filt Rate > 60; HDL Cholesterol 45 mg/dL (>40); Potassium 4.9 mmol/L (3.3-5.1); Sodium 146 mmol/L (135-145); Total Protein 7.0 g/dL (6.5-8.0); Triglycerides 89 mg/dL (<150)
[2025-03-21 11:53] LABS: Free T4 (Free Thyroxine) 0.73 ng/dL (0.71-1.85)
[2025-03-21 14:03] LABS: Folate 7.9 ng/mL (> or = 4.0); Vitamin B12 326 pg/mL (200-900)
== END 2025-03-21 09:56 | disposition home or self-care (01) ==
LOC: HO.LAB 09:55
PROVIDERS: PCP Internal Medicine; Visit Provider Internal Medicine
DX: Z00.00 Encounter for general adult medical examination without abnormal findings (principal); K59.00 Constipation, unspecified; E78.00 Pure hypercholesterolemia, unspecified; K21.9 Gastro-esophageal reflux disease without esophagitis; R53.83 Other fatigue; Z13.21 Encounter for screening for nutritional disorder
CPT/HCPCS: 36415; 80053; 80061; 82306; 82607; 82746; 84439; 84443; 85025

== ENCOUNTER → 2025-04-25 13:50 | Outpatient (REF) | payer OTHER, SELFPAY ==
--- NOTE | 2025-04-25 13:57 | CA_ITS ---
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 The calculated ejection fraction is 48% by biplane method. - No obvious valvular pathology seen on this study. Findings Left Ventricle Normal left ventricular cavity size. There is normal left ventricular wall thickness. The left ventricular systolic function is mildly decreased. The calculated ejection fraction is 48% by biplane method. Evidence suggests grade I (mild) diastolic dysfunction. Right Ventricle Normal right ventricular cavity size and systolic function. Atria The left atrium is mildly dilated. The right atrium is normal in size. Aortic Valve There is a normal trileaflet aortic valve. There is no aortic valve stenosis. There is no aortic valve regurgitation. Mitral Valve The mitral valve appears normal. There is mild mitral valve regurgitation. There is no mitral valve stenosis. Pulmonic Valve The pulmonic valve is likely normal. Tricuspid Valve Normal tricuspid valve structure. There is mild tricuspid valve regurgitation. There is no evidence of pulmonary hypertension. Great Vessels The asc aorta and aortic arch are normal in size. Venous The inferior vena cava was not well visualized. Pericardium/Pleural There is no evidence of pericardial effusion. Prior Study Comparison No significant change compared to prior study dated: 05/01/2024. Recommendations, Care & Conclusions No obvious valvular pathology seen on this study. Measurements 2D Linear Measurements IVSd: 0.84 0.6-0.9/0.6-1.0 cm LVIDd: 5.05 3.9-5.3/4.2-5.9 cm LVIDd Index: 2.66 2.4-3.2/2.2-3.1 cm/m2 LVIDs: 3.73 2.0-3.6 cm LVPWd: 0.83 0.7-1.1 cm LA Diam: 4.10 2.7-3.8/3.0-4.0 cm LAIDs Index: 2.16 1.5-2.3 cm/m2 LV Mass: 181.38 67-162/88-224 g LV Mass Index: 95.46 43-95/49-115 g/m2 LVOT Diam: 2.30 3.0+(-)1.3 cm 2D Systolic Function EF 4C: 43.00 >55% EF 2C: 51.20 >55% EF BiP: 47.60 >55% Mitral Valve MV VTI: 0.38 MV Pk Eusebio: 1.23 MV Mn Eusebio: 0.78 MV Pk Grad: 6.00 MV Mn Grad: 3.00 MV Pk E: 1.07 MV PK A: 1.14 MV Decel Time: 185.00 E/A: 0.90 E'Lateral: 7.07 E'Medial: 4.79 E/E' Med: 22.30 E/E' Lat: 15.10 PHT: 54.00 MVA PHT: 4.07 MVA Continuity: 2.70 Decel Summit: 5.80 Aortic Valve AoV Pk Eusebio: 1.57 AoV Mn Eusebio: 1.11 AoV VTI: 0.31 AoV Pk Grad: 10.00 Aov Mn Grad: 5.00 BENY Cont.VTI: 3.25 LVOT LVOT Pk Eusebio: 1.14 LVOT Mn Eusebio: 0.83 LVOT VTI: 0.25 LVOT Pk Grad: 5.00 LVOT Mn Grad: 3.00 LVOT Diam: 2.30 LVOT Area: 4.15 Diastolic Function MV Pk E: 1.07 MV Pk A: 1.14 E/A: 0.90 E'Medial: 4.79 E/E' Med: 22.30 E' Laterial: 7.07 E/E' Lat: 15.10 Right Ventricle TAPSE (mm): 21.20 TVS' Eusebio: 11.70 Tricuspid Valve TR Pk Eusebio: 2.26 TR Pk Grad: 20.00 Great Vessels Aorta Sinus of Valsalva: 3.14 2.0-3.5 cm Ao Asc: 3.10 2.1-3.4 cm Ao Arch: 2.90 Updated in Other Vendor System with Status of Final Kevin Romano MD electronically signed on 04/27/2025 3:38:08 PM with status of Final
--- OUTSIDE RECORDS SUMMARY | 2025-04-25 17:30 | XMS_ITS | Clinical Summary ---
Author Organization [facility] Address [address] [facility] [address] [place] [phone] Phone Care Team Providers Care Ecology Teacher Name Role Phone Jas Tellez MD Primary Care Provider [phone] Allergies Active Allergy Reactions Criticality Noted Date [...] Encounters Date Type Department Care Team Description 03/22/2025 9:34 AM EDT - 03/22/2025 11:59 PM EDT Hospital Encounter [facility] Oral Medicine and Dentistry Practice [address] [address] Lala Sunshine DDS, PhD Discharge Disposition: Home or Self Care from Last 3 Months Immunizations Immunization Administration [...] Former Cigarettes 2 15 1 978 - 1992 Smokeless Tobacco: Never Alcohol Use Standard Drinks/Week [...] Upcoming Encounters Date Type Department Care Team ([facility] st Contact Info) Description 09/20/2025 10:30 AM EST Appointment [facility] Oral Medicine and Dentistry Practice [address] [place] [address] Lala Domingo DDS, PhD [address] [place] [address] [email or web address] Health Maintenance Due Date Last Done Comments Dental Oral Exam 1965 Dental Prophylaxis 1965 Dental X-Ray: Bitewings 1965 LIPID PANEL 1965 DEPRESSION SCREENING 1975 SMOKING Hx and SMOKELESS TOBACCO SCREENING 1976 HEPATITIS C SCREENING 1981 HIV ONE-TIME SCREENING (18-65 YEARS) 1981 PAP SMEAR 1984 MAMMOGRAM 2003 COLOGUARD 2008 COLONOSCOPY 2008 COLORECTAL CANCER SCREENING 2008 FIT TEST 2008 FOBT 2008 SIGMOIDOSCOPY 2008 VIRTUAL COLONOSCOPY 2008 PNEUMOCOCCAL VACCINES (50+ years) (2 of 2 - PCV) 12/27/2019 12/26/2018 ZOSTER VACCINES (2 of 2) 08/20/2023 06/25/2023 INFLUENZA VACCINE (#1) 2025 3, 06/04/2020, 06/15/2019, Additional history exists COVID-19 VACCINE ( season) 2025 06/23/2021, 12/28/2020, 11/11/2020 Adult Td,Tdap Booster 05/05/2034 [...] topic Medical Devices Not on file Insurance [facility] ONE CARE MEDICARE REPLACEMENT MEDICARE PART A & B [facility] CARE MEDICARE REPLACEMENT [place] [id number] MEDICARE PART A & B [facility] CARE MEDICARE REPLACEMENT [place] [id number] MEDICARE PART A & B MEDICARE PART A & B [facility] CARE MEDICARE REPLACEMENT MEDICARE PART A & B [facility] ONE CARE MEDICARE REPLACEMENT MEDICARE PART A & B Care Teams Ecology Teacher Relationship Specialty Start Date End Date Jas Tellez MD [address] [place] [address] [phone] PCP - General Internal Medicine 02/02/23 Additional Source Comments The information contained in this document represents components of the legal health record. It is not the complete legal health record.[facility]
== END ==
LOC: HO.CARD 13:50
PROVIDERS: PCP Internal Medicine; Visit Provider Internal Medicine
DX: I44.7 Left bundle-branch block, unspecified (principal)
CPT/HCPCS: 93306

== ENCOUNTER → 2025-04-25 13:57 | Outpatient (BNV) | payer OTHER, SELFPAY | PROVIDERS: PCP Internal Medicine; Visit Provider Internal Medicine | DX: I34.0 Nonrheumatic mitral (valve) insufficiency (principal); I51.89 Other ill-defined heart diseases; I44.7 Left bundle-branch block, unspecified; I36.1 Nonrheumatic tricuspid (valve) insufficiency | CPT/HCPCS: 93306 ==

== ENCOUNTER 2025-05-10 13:49 | Outpatient (AMB) | payer OTHER, SELFPAY ==
[2025-05-10 14:00] VITALS: BP 128/72; PULSE 75; TEMP 36.2; O2SAT 96; BMI 31.0
--- NOTE | 2025-05-10 14:00 | MHC.PC.OV ---
Vital Signs 05/10/25 14:00 Height 5 ft 5 in Weight 186 lb 4 oz BMI 31.0 BP 128/72 Blood Pressure Location Lt brachial Position Sitting Pulse 75 Pulse Source Pulse Oximeter Temp 97.1 F Temp Source Temporal Artery Scan Pulse Oximetry (%) 96 Oxygen Delivery Method Room Air Intake Visit Reasons: Annual exam Allergies Penicillins (PENICILLINS) Allergy (Intermediate, Verified 05/10/25 14:35) HIVES latex (Latex) Allergy (Mild, Verified 05/10/25 14:35) RASH Medication List - Last Reconciled 05/10/25 by Jas Tellez MD albuterol sulfate 2.5 mg (3 mL) inhalation QID PRN ascorbate calcium (vitamin C) 500 mg PO DAILY clobetasol 0.05% 1 appl topical BID clonazepam 1 mg PO BEDTIME desvenlafaxine ER 100 mg PO DAILY gabapentin 300 mg PO .QD 15 days linaclotide (Linzess) 290 mcg PO DAILY melatonin 5 mg PO BEDTIME PRN meloxicam 15 mg PO DAILY PRN multivitamin 1 tab PO DAILY omeprazole 20 mg PO BID oxcarbazepine 600 mg PO BID thiamine HCl (vitamin B1) 100 mg PO DAILY topiramate 25 mg PO BID Ventolin HFA 90 mcg/actuation (albuterol sulfate) 2 puffs PO Q6H PRN 30 days NS Tobacco use date assessed: 05/10/25 Dental Screening Dental Screen Date: 05/10/25 Did you have a dental visit in the last 12 months?: Yes Did you have a dental problem in the last 6 months where you did not have access to dental care?: No Was dental information given to patient?: Patient has dentist [facility] Medical History Colon cancer screening Annual physical exam Obesity (BMI 30-39.9) Cervical cancer screening Constipation Seizure-like activity Impacted cerumen of right ear Bilateral hand pain Bilateral ankle pain Oral lichenoid mucositis Observed seizure-like activity Seizure disorder Disc degeneration, lumbar Spondylosis of lumbar spine Sacroiliitis Renal calculi Peptic ulcer disease GERD (gastroesophageal reflux disease) Migraine TIA (transient ischemic attack) Bipolar disorder Asthma Hypercholesterolemia Vitamin D deficiency Carpal tunnel syndrome Lumbar spondylosis Osteoarthritis of hands, bilateral Surgical History Hx of colonoscopy Vocal cord cyst H/O plastic surgery History of arthroscopy of right knee History of lumbar surgery History of abdominoplasty History of gastric surgery LAP-BAND surgery status History of tubal ligation History of tonsillectomy History of cholecystectomy Family History Father Throat cancer Esophageal cancer Mother Hypertension Cancer Maternal Grandmother Uterine cancer Maternal Aunt Uterine cancer Maternal Uncle Esophageal cancer Prostate cancer Daughter Oral cancer Social History Household Members: Spouse Housing: House Alcohol intake: never Patient Tobacco Use Status: Former Tobacco user Tobacco use type: Cigarette Years Smoked: 1989 e-Cigarette/Vaping Use: Never Used Second Hand Smoke Exposure: Yes service: No Current occupational status: disabled Cognitive needs: No Hearing needs: No Vision needs: Yes (reading glasses) Questionnaire PHQ-9 Over the last 2 weeks, how often have you been bothered by any of the following problems? 1. Little interest or pleasure in doing things: not at all 2. Feeling down, depressed, or hopeless: not at all 3. Trouble falling or staying asleep, or sleeping too much: not at all 4. Feeling tired or having little energy: not at all 5. Poor appetite or overeating: not at all 6. Feeling bad about yourself - or that you are a failure or have let yourself or your family down: not at all 7. Trouble concentrating on things, such as reading the newspaper or watching television: several days 8. Moving or speaking so slowly that other people could have noticed. Or the opposite - being so fidgety or restless that you have been moving around a lot more than usual: not at all 9. Thoughts that you would be better off or of hurting yourself in some way: not at all Total score: 1 Depression Screening Interpretation: Negative Depression Screening Done: Yes Source: Developed by Drs. Juma Mckinley, Lani Chen, Vinny Beltrán and colleagues, with an educational shiraz from [employer]. Thrive Questionnaire Date Thrive assessed: 03/13/25 I am a: Patient What is your living situation today?: I have a steady place to live Within the past 12 months, did the food you bought not last and you didn't have the money to get more?: I choose not to answer this question Within the past 12 months, did you worry whether your food would run out before you got money to buy more?: I choose not to answer this question Do you have trouble paying for medicines?: No Do you have trouble getting transportation to medical appointments?: I choose not to answer this question Do you have trouble paying your heating and electricity bill?: I choose not to answer this question Do you have trouble taking care of your child, family member or friend?: I choose not to answer this question Do you have trouble with day-to-day activities such as bathing, preparing meals, shopping, managing finances, etc.?: I choose not to answer this question Are you currently unemployed and looking for a job?: I choose not to answer this question Are you interested in more education?: No Please select the resources that you would like help with: Job search/training Currently or been in a relationship where the following occur: No concerns reported THRIVE Score: 0 AUDIT C Alcohol Use Questionnaire (AUDIT-C) 1. How often do you have a drink containing alcohol?: Never 3. How often do you have six or more drinks on one occasion?: Never Total Score: 0 PEPE-7 AMB Questionnaire PEPE-7 Date PEPE - 7 assessed: 03/13/25 Feeling nervous, anxious, or on edge: 0 = Not at all Not being able to stop or control worryin = Several days Worrying too much about different things: 1 = Several days Trouble relaxin = Several days Being so restless that it is hard to sit still: 1 = Several days Becoming easily annoyed or irritable: 1 = Several days Feeling afraid as if something awful might happen: 0 = Not at all Total PEPE-7 score (0-4 normal; 5-9 mild; 10-14 moderate; 15-21 severe): 5 Source: Developed by Drs. Juma Mckinley, Lani Chen, Vinny Beltrán and colleagues, with an educational shiraz from [employer]. Review of Systems Const Denies poor appetite and Denies weakness Eyes Denies no additional complaints ENT Reports Normal hearing present, Denies dizziness, Denies nasal congestion, Denies tinnitus and Denies sore throat Card Denies chest pain, Denies syncope, Denies rapid heart rate and Denies dyspnea Resp Denies cough and Denies dyspnea GI Denies change in stool character, Reports constipation, Denies diarrhea, Denies nausea and Denies vomiting Denies urinary frequency, Denies difficulty voiding and Denies dysuria Neuro Reports Normal hearing present, Denies confusion, Denies dizziness, Denies syncope and Denies weakness Psych Denies confusion Physical exam (Primary Care) Vital Signs: Last Vital Signs Temp 97.1 F 05/10/25 14:00 Pulse 75 05/10/25 14:00 BP 128/72 05/10/25 14:00 Pulse Ox 96 05/10/25 14:00 Oxygen Delivery Method Room Air 05/10/25 14:00 BMI result Body Mass Index 31.0 Tobacco/Smoking Status: Tobacco use Status Tobacco use date assessed 05/10/25 05/10/25 14:02 Patient Tobacco Use Status Former Tobacco user 05/10/25 14:02 Tobacco use type Cigarette 05/10/25 14:02 e-Cigarette/Vaping Use Never Used 05/10/25 14:02 PHQ-9: PHQ-9 Score PHQ-9: Total score 1 05/10/25 15:23 Depression Screening Interpretation: Negative Thrive Assessment: Date of Thrive Assessment Date Thrive assessed 03/13/25 05/10/25 14:02 Currently or been in a relationship where the following occur: No concerns reported Const General: No confusion Orientation/consciousness: No confusion HENMT Head: Yes normocephalic Ears: external ears normal and TM's normal bilaterally Face and sinus: Yes normal facial exam Mouth: moist mucous membranes Throat: Yes tonsils normal Eyes Conjunctivae: conjunctivae normal Pupils: Equal, round and reactive pupils present and Pupil accommodation reflex normal Direct Ophthalmoscopy: normal light reflex Neck Neck: No lymphadenopathy Thyroid: Thyroid normal Chest Chest palpation & inspection: normal inspection of the chest Resp Effort & Inspection: normal respiratory effort and no audible wheezes Auscultation: clear to auscultation bilaterally, no crackles, no wheezes and lung sounds not diminished Cardio Rate: regular rate Rhythm: regular rhythm Peripheral pulses: radial pulses present and dorsalis pedis present GI Palpation (GI): no masses Auscultation: normal bowel sounds and normoactive bowel sounds Rectal Exam - Female: deferred Skin General skin exam: no rashes or lesions noted Rashes: no rashes Neuro General: No confusion Cranial nerves: Yes Equal, round and reactive pupils present and Yes Normal hearing present Cognition (Neuro): normal cognition Gait exam (Neuro): Normal gait present Motor exam (neuro): 5/5 motor strength present throughout Deep tendon reflexes (DTR's): Right brachioradialis reflex intensity grade: 2+, Left brachioradialis reflex intensity grade: 2+, Right patellar reflex intensity grade: 2+ and Left patellar reflex intensity grade: 2+ Extrem General: No edema Coding Level of Care Code Est Pt Prev Care 40-64y(89950) Diagnoses Annual physical exam Z00.00 Migraine with aura and without status migrainosus, not intractable G43.109 Intractability: not intractable Migraine type: with aura Status migrainosus presence: without status migrainosus Gastroesophageal reflux disease without esophagitis K21.9 Esophagitis presence: without esophagitis Obesity (BMI 30-39.9) E66.9 Hypercholesterolemia E78.00 Bipolar affective disorder, currently depressed, moderate F31.32 Active/Remission status: currently active Current bipolar episode type: depressed Current episode severity: moderate Left bundle branch block I44.7 Colon cancer screening Z12.11 Breast cancer screening by mammogram Z12.31 Assessment & Plan Assessment & Plan (1) Annual physical exam: Code(s): Z00.00 - Encounter for general adult medical examination without abnormal findings Category: Medical Plan: Patient is advised to eat healthy, keep well hydrated, keep active and have adequate sleep. (2) Migraine: Comment: 48 hour EEG negative March 2019 Code(s): G43.909 - Migraine, unspecified, not intractable, without status migrainosus Category: Medical Qualifiers: Intractability: not intractable Migraine type: with aura Status migrainosus presence: without status migrainosus Qualified Code(s): G43.109 - Migraine with aura, not intractable, without status migrainosus Plan: Continue with present medication (3) GERD (gastroesophageal reflux disease): Comment: December 2019 Code(s): K21.9 - Gastro-esophageal reflux disease without esophagitis Category: Medical Qualifiers: Esophagitis presence: without esophagitis Qualified Code(s): K21.9 - Gastro-esophageal reflux disease without esophagitis Plan: Avoid the foods that causes that usually spicy foods, tomato products, juices, coffee, soda and foods that your sensitive to. After eating do not lie down, allow 3-4 hours before in lie down. And keep the head of bed above 30 degrees to avoid the acid from going up. (4) Obesity (BMI 30-39.9): Code(s): E66.9 - Obesity, unspecified Category: Medical Plan: Diet and exercise (5) Hypercholesterolemia: Code(s): E78.00 - Pure hypercholesterolemia, unspecified Category: Medical Plan: Avoid fried foods, chicken skin, eggs, butter margarine, pastries and meat. Be it pork or beef they have a lot of cholesterol LDL goal of less than 100 and triglyceride of less than 150 patient is on diet control (6) Bipolar disorder: Comment: [place] Code(s): F31.9 - Bipolar disorder, unspecified Category: Medical Qualifiers: Active/Remission status: currently active Current bipolar episode type: depressed Current episode severity: moderate Qualified Code(s): F31.32 - Bipolar disorder, current episode depressed, moderate Plan: Continue with counseling and therapy (7) Left bundle branch block: Comment: Workup including coronary CTA normal 03/2024 Code(s): I44.7 - Left bundle-branch block, unspecified Category: Medical (8) Colon cancer screening: Code(s): Z12.11 - Encounter for screening for malignant neoplasm of colon Category: Medical (9) Breast cancer screening by mammogram: Code(s): Z12.31 - Encounter for screening mammogram for malignant neoplasm of breast Category: Medical Plan History of Present Illness The patient is a 59-year-old female presenting for a physical examination and wellness visit. She has a history of obesity, with a recent weight gain of 6 pounds, and lumbar spondylosis, which has been managed with meloxicam for pain relief. Her medical history includes hypercholesterolemia, with an LDL cholesterol level of 164 mg/dL, and she is currently on a diet control plan to manage this condition. The patient has bipolar disorder, managed with desvenlafaxine and clonazepam as needed. She also experiences migraines, for which she takes topiramate. Her gastroesophageal reflux disease (GERD) is managed with omeprazole, and she reports occasional reflux pain. The patient has diverticular disease, though no recent complications were discussed. She had an echocardiogram showing a decreased ejection fraction of 48%, and she is under regular cardiology follow-up. Her blood work in March showed hypernatremia with a sodium level of 146 mmol/L, and she has been advised to increase her water intake. The patient has a family history of various cancers, including esophageal, throat, uterine, and prostate cancers. She is allergic to penicillin and uses an albuterol inhaler as needed for seasonal allergies. Her preventative care is up to date with vaccinations, but she is due for a mammogram and colonoscopy. Health Maintenance - Vaccinations: Up to date with shingles, tetanus, pneumonia, and flu shots. - Screening: Mammogram and colonoscopy are due. - Lifestyle: Advised to increase water intake to address hypernatremia. - Diet: Following a diet control plan to manage hypercholesterolemia. Social History - Substance Use: Denies alcohol, tobacco, and recreational drug use. - Family History: Significant for various cancers including esophageal, throat, uterine, and prostate cancers. - Exercise: Engages in regular physical activity. Review of Systems - General: Reports feeling good overall. - Cardiovascular: Denies chest pain, dyspnea, or palpitations. - Respiratory: Denies cough or wheezing. - Gastrointestinal: Reports occasional reflux pain; denies nausea or vomiting. - Neurological: Reports occasional neck pain; denies dizziness or seizures. - Musculoskeletal: Denies joint pain or swelling. - Dermatological: Denies skin changes or rashes. Physical Exam General: Cooperative, healthy appearing, comfortable, no acute distress and well developed Orientation: Patient oriented x3 Limitations: No limitations Head: Normal to inspection Ears: Hearing grossly normal bilaterally Nose: Normal external nose present Face and sinus: Normal facial exam Eyes: Appearance normal, both eyes and all related structures Neck: Normal visual inspection and Yes full ROM Respiratory: Normal respiratory effort and able to speak in complete sentences. Clear to auscultation bilaterally Cardiovascular: Regular rhythm with occasional skipped beats. Normal S1 and S2 GI: Normal to inspection. Soft to palpation and nontender Skin: No rashes or lesions noted Neuro: Patient oriented x3 Extremities: Normal to inspection Results - Echocardiogram: Ejection fraction of 48%, no valvular pathology noted. - Blood Work: Sodium level of 146 mmol/L, LDL cholesterol of 164 mg/dL, normal blood count, normal creatinine, normal liver function tests. - CTA: No evidence of atherosclerotic coronary artery disease, minimal atherosclerotic plaque in the aortic root and descending thoracic aorta. Plan Patient was informed and verbally consented to the use of an ambient scribe for clinic note documentation during this visit. 1. Obesity The patient is advised to continue with diet and exercise to manage her weight, given the recent 6-pound weight gain. 2. Hypercholesterolemia The patient is on a diet control plan with an LDL goal of less than 100 mg/dL and triglycerides less than 150 mg/dL. A low-dose medication has been prescribed to help lower cholesterol levels, with a follow-up cholesterol test scheduled in three months. 3. Decreased Ejection Fraction The patient is under regular cardiology follow-up to monitor her heart function, with the next appointment scheduled for the 7th. Discussion Notes During the visit, we discussed the importance of managing hypercholesterolemia through diet and medication, aiming for an LDL cholesterol level below 100 mg/dL. We also reviewed the patient's echocardiogram results, noting a decreased ejection fraction, and emphasized the need for regular cardiology follow-up. The patient was advised to increase water intake to address hypernatremia and to maintain regular physical activity to manage obesity. Patient Instructions - Continue with current diet and exercise regimen to manage weight and cholesterol levels. - Take prescribed cholesterol medication as directed and report any side effects. - Increase water intake to prevent dehydration and manage sodium levels. - Schedule and attend follow-up appointments with cardiology and for mammogram and colonoscopy screenings. Orders: Orders Comprehensive Met. Panel 3 Months E78.00 - Pure hypercholesterolemia, unspecified Lipid Panel 3 Months E78.00 - Pure hypercholesterolemia, unspecified MM tomosynthesis screening BI Today E78.00 - Pure hypercholesterolemia, unspecified, Z12.31 - Encounter for screening mammogram for malignant neoplasm of breast Referrals Gastroenterology Referral Z12.11 - Encounter for screening for malignant neoplasm of colon Medications: New rosuvastatin 5 mg PO DAILY 30 tabs 3RF E78.00 - Pure hypercholesterolemia, unspecified
--- OUTSIDE RECORDS SUMMARY | 2025-05-10 15:28 | XMS_ITS | Clinical Summary ---
Author Organization [facility] Address [address] [facility] [address] [place] [id number] Phone Care Team Providers Care Dry Press Operator Name Role Phone Jas Tellez MD Primary Care Provider [phone] Allergies Active Allergy Reactions Criticality Noted Date [...] - 03/22/2025 11:59 PM EDT Hospital Encounter [facility] Oral Medicine and Dentistry Practice [address] [address] Lala Sunshine DDS, PhD Discharge Disposition: Home [...] Upcoming Encounters Date Type Department Care Team ([facility] st Contact Info) Description 09/20/2025 10:30 AM EST Appointment [facility] Oral Medicine and Dentistry Practice [address] [place] [address] Lala Domingo DDS, PhD [address] [place] [address] [email or web address] Health Maintenance Due Date Last Done Comments [...] topic Medical Devices Not on file Insurance [facility] ONE CARE MEDICARE REPLACEMENT MEDICARE PART A & B [facility] CARE MEDICARE REPLACEMENT [place] [id number] MEDICARE PART A & B [facility] CARE MEDICARE REPLACEMENT [place] [id number] MEDICARE PART A & B MEDICARE PART A & B [facility] CARE MEDICARE REPLACEMENT MEDICARE PART A & B [facility] ONE CARE MEDICARE REPLACEMENT MEDICARE PART A & B Care Teams Dry Press Operator Relationship Specialty Start Date End Date Jas Tellez MD [address] [place] [phone] PCP - General Internal Medicine 02/02/23 Additional Source Comments The information contained in this document represents components of the legal health record. It is not the complete legal health record.[facility]
--- OUTSIDE RECORDS SUMMARY | 2025-05-10 15:28 | XMS_ITS | Clinical Summary ---
Author Organization [address] [facility] Address [address] [place] [address] Phone Care Team Providers Care Tanbark Laborer Name Role Phone Jas Tellez MD Primary [...] disease) 8 Kidney stone 03/02/2018 Seizure disorder ([facility] V24, [facility] V28) 02/07 Anxiety 03/02/2018 Depression 03/02/2018 Surgical History Surgery Date Site/Laterality Comments OTHER SURGICAL HISTORY PROCEDURE: ---- OTHER ----; COMMENT: gastric band converted to sleeve gastrectomy OTHER SURGICAL HISTORY PROCEDURE: ---- OTHER ----; COMMENT: abdominoplasty OTHER SURGICAL HISTORY 2015 PROCEDURE: CO LAPT RPR PARAESOPH HIATAL HERNIA W/MESH CHOLECYSTECTOMY PROCEDURE: HISTORICAL CHOLECYSTECTOMY KNEE SURGERY PROCEDURE: HISTORICAL KNEE SURGERY OTHER SURGICAL HISTORY PROCEDURE: ---- OTHER ----; COMMENT: liposuction, bilateral brachioplasty BACK SURGERY PROCEDURE: HISTORICAL BACK SURGERY; COMMENT: fatty tumor removed from lumbar disk OTHER SURGICAL HISTORY PROCEDURE: ---- OTHER ----; COMMENT: vocal cord tumor removed UPPER GASTROINTESTINAL ENDOSCOPY 06/19/2020 PROCEDURE: CO UPPER GI ENDOSCOPY PERFORMED; COMMENT: H.pylori positive and esophagus biopsy consistent with GERD COLONOSCOPY 06/19/2020 PROCEDURE: HISTORICAL COLONOSCOPY; COMMENT: diverticulosis Medical History Medical History Date Comments Seizure disorder ([facility] V2 4, [facility] V28) 03/02/2018 DX:Seizure disorder ([facility]) History of bariatric surgery 03/02/2018 DX: [...] Zoster Vaccines (2 of 2) 08/20/2023 06/25/2023 Depression Screening 08/09/2024 COVID-19 Vaccine ( season) 2025 06/23/2021, 12/28/2020, 11/11/2020 Influenza Vaccine (#1) 2025 3, 06/04/2020, 06/15/2019, [...] Group ID:ICO Type:Not on file Address: [address] [facility] [place] [address] Care Teams Tanbark Laborer Relationship Specialty Start Date End Date Jas Tellez MD [address] [place] [address] [address] [facility] [place] [address] PCP - General Internal Medicine 02/02/12
== END 2025-05-10 15:46 | disposition home or self-care (01) ==
LOC: HO.HMCH 13:50
PROVIDERS: PCP Internal Medicine; Visit Provider Internal Medicine
DX: Z00.00 Encounter for general adult medical examination without abnormal findings (principal); F31.32 Bipolar disorder, current episode depressed, moderate; E66.9 Obesity, unspecified; Z68.31 Body mass index [BMI] 31.0-31.9, adult; G43.109 Migraine with aura, not intractable, without status migrainosus; K21.9 Gastro-esophageal reflux disease without esophagitis; E78.00 Pure hypercholesterolemia, unspecified; I44.7 Left bundle-branch block, unspecified; Z12.11 Encounter for screening for malignant neoplasm of colon; Z12.31 Encounter for screening mammogram for malignant neoplasm of breast

== ENCOUNTER → 2025-05-10 13:49 | Outpatient (BNVA) | payer OTHER, SELFPAY | PROVIDERS: PCP Internal Medicine; Visit Provider Internal Medicine | DX: Z00.00 Encounter for general adult medical examination without abnormal findings (principal); G43.109 Migraine with aura, not intractable, without status migrainosus; K21.9 Gastro-esophageal reflux disease without esophagitis; E66.9 Obesity, unspecified; E78.00 Pure hypercholesterolemia, unspecified; F31.32 Bipolar disorder, current episode depressed, moderate; I44.7 Left bundle-branch block, unspecified; Z68.31 Body mass index [BMI] 31.0-31.9, adult | CPT/HCPCS: 96127; 99396 ==

== ENCOUNTER 2025-05-15 14:04 | Outpatient (AMB) | payer OTHER, SELFPAY ==
--- NOTE | 2025-05-15 14:13 | A.OFFVIS_ITS ---
Vital Signs 05/15/25 14:14 Height 5 ft 5 in Weight 183 lb 6.793 oz BMI 30.5 BP 120/56 L Blood Pressure Location Lt brachial Position Sitting Pulse 76 Pulse Source Monitor Intake Visit Reasons: 1 yr f/up-echo Youth Career Specialist Required: No Accompanied by: Significant Other Allergies Penicillins (PENICILLINS) Allergy (Intermediate, Verified 05/10/25 14:35) HIVES latex (Latex) Allergy (Mild, Verified 05/10/25 14:35) RASH Medication List - Last Reconciled 05/15/25 by Kevin Romano MD albuterol sulfate 2.5 mg (3 mL) inhalation QID PRN ascorbate calcium (vitamin C) 500 mg PO DAILY clobetasol 0.05% 1 appl topical BID clonazepam 1 mg PO BEDTIME desvenlafaxine ER 100 mg PO DAILY gabapentin 300 mg PO .QD 15 days linaclotide (Linzess) 290 mcg PO DAILY melatonin 5 mg PO BEDTIME PRN meloxicam 15 mg PO DAILY PRN multivitamin 1 tab PO DAILY omeprazole 20 mg PO BID oxcarbazepine 600 mg PO BID rosuvastatin 5 mg PO DAILY thiamine HCl (vitamin B1) 100 mg PO DAILY topiramate 25 mg PO BID Ventolin HFA 90 mcg/actuation (albuterol sulfate) 2 puffs PO Q6H PRN 30 days NS HPI Comments Details: Eleni returns for follow-up regarding left bundle-branch block. From the cardiac, she has generally been stable. No clear-cut concerns. History of bariatric surgery many years ago. [facility] Medical History Colon cancer screening Annual physical exam Obesity (BMI 30-39.9) Cervical cancer screening Constipation Seizure-like activity Impacted cerumen of right ear Bilateral hand pain Bilateral ankle pain Oral lichenoid mucositis Observed seizure-like activity Seizure disorder Disc degeneration, lumbar Spondylosis of lumbar spine Sacroiliitis Renal calculi Peptic ulcer disease GERD (gastroesophageal reflux disease) Migraine TIA (transient ischemic attack) Bipolar disorder Asthma Hypercholesterolemia Vitamin D deficiency Carpal tunnel syndrome Lumbar spondylosis Osteoarthritis of hands, bilateral Surgical History Hx of colonoscopy Vocal cord cyst H/O plastic surgery History of arthroscopy of right knee History of lumbar surgery History of abdominoplasty History of gastric surgery LAP-BAND surgery status History of tubal ligation History of tonsillectomy History of cholecystectomy Family History Father Throat cancer Esophageal cancer Mother Hypertension Cancer Maternal Grandmother Uterine cancer Maternal Aunt Uterine cancer Maternal Uncle Esophageal cancer Prostate cancer Daughter Oral cancer Social History Household Members: Spouse Housing: House Alcohol intake: never Patient Tobacco Use Status: Former Tobacco user Tobacco use type: Cigarette Years Smoked: quit 1989 e-Cigarette/Vaping Use: Never Used Second Hand Smoke Exposure: Yes service: No Current occupational status: disabled Cognitive needs: No Hearing needs: No Vision needs: Yes (reading glasses) Review of Systems Const Denies chills, Denies fatigue, Denies fever(s), Denies frequent falls, Denies weakness, Denies weight gain and Denies weight loss ENT Denies dizziness Card Denies chest pain, Denies leg edema, Denies lightheadedness, Denies palpitations, Denies dyspnea and Denies dyspnea on exertion Resp Denies cough, Denies dyspnea and Denies dyspnea on exertion GI Denies hematochezia Musc Denies abnormal gait, Denies muscle weakness, Denies numbness, Denies radiating pain into limb and Denies tingling Neuro Denies abnormal gait, Denies dizziness, Denies frequent falls, Denies numbness, Denies tingling and Denies weakness Endo Denies fatigue and Denies palpitations Physical Exam Vital Signs: Last Vital Signs Pulse 76 05/15/25 14:14 BP 120/56 L 05/15/25 14:14 BMI result Body Mass Index 30.5 Const General: comfortable and no acute distress Orientation/consciousness: patient oriented x3 HEENT Other: Unremarkable Head: Yes normal to inspection Neck Neck: Yes normal visual inspection Chest Chest palpation & inspection: normal inspection of the chest Resp Auscultation: clear to auscultation bilaterally Cardio Palpation: normal PMI Heart sounds: S1 normal heart sound present, S2 normal heart sound present, no gallops, no murmurs and no rubs GI Palpation (GI): Soft to palpation Back/Spine/Pelvis Other: unremarkable Skin General skin exam: no rashes or lesions noted Neuro General: patient oriented x3 Extrem General: Yes normal to inspection Psych Mental Status: mental status grossly normal Office Procedures EKG Details: EKG with sinus rhythm at 76/Min; left bundle-branch block pattern; [place]. [address]-[id number], Complete Assessment & Plan Assessment & Plan (1) Left bundle branch block: Comment: Workup including coronary CTA normal 03/2024 Code(s): I44.7 - Left bundle-branch block, unspecified Category: Medical (2) Cardiomyopathy: Code(s): I42.9 - Cardiomyopathy, unspecified Category: Medical Plan Left bundle-branch block of unknown duration. A prior rhythm strip from 2022 also shows the same finding. In the recent echocardiogram, LVEF is 48%. In the previous study, LVEF 50-55%. Peak global longitudinal strain of-17.2%, borderline low. Coronary CTA without any evidence of atherosclerotic coronary disease. Minimal plaque in the aortic root/descending thoracic aorta. With regard to the left bundle-branch block, pathophysiology discussed. No specific interventions. We will need to follow EKGs periodically for any progressive conduction system disease. We discussed about symptoms of the same including dizziness and presyncope. With regard to the mild cardiomyopathy, we can follow up on echocardiogram in one year. Otherwise, mainly reassurance. Pursue healthy lifestyle. Follow up in one year. Discussed with significant other. Total time spent including review of data, counseling, documentation, coordination of care-32 min. Orders: Orders CA echo transthoracic complete 1 Year I44.7 - Left bundle-branch block, unspecified Coding Level of Care Code Est Pt Level 4 (87626) Diagnoses Left bundle branch block I44.7 Cardiomyopathy I42.9 CPT Codes EKG - CPT: 07821-[id number], Complete ([id number])
[2025-05-15 14:14] VITALS: BP 120/56; PULSE 76; BMI 30.5
--- OUTSIDE RECORDS SUMMARY | 2025-05-15 17:20 | XMS_ITS | Clinical Summary ---
Author Organization 175 [facility] Address [address] [place] [address] Phone Care Team Providers Care Yoke Setter Name Role Phone Jas Tellez MD Primary Care Provider [phone] Allergies Active Allergy Reactions Criticality Noted Date [...] disease) 8 Kidney stone 03/02/2018 Seizure disorder ([facility] V24, [facility] V28) 02/07 Anxiety 03/02/2018 Depression 03/02/2018 [...] History Medical History Date Comments Seizure disorder ([facility] V2 4, [facility] V28) 03/02/2018 DX:Seizure disorder ([facility]) History of bariatric surgery 03/02/2018 DX: [...] Group ID:ICO Type:Not on file Address: [address] [facility] [place] [address] Care Teams Yoke Setter Relationship Specialty Start Date End Date Jas Tellez MD [address] [place] [address] [address] [facility] [place] [address] PCP - General Internal Medicine 02/02/12
--- OUTSIDE RECORDS SUMMARY | 2025-05-15 17:20 | XMS_ITS | Clinical Summary ---
Author Organization [facility] Address [address] [facility] [address] [place] [phone] Phone Care Team Providers Care Strickler Attendant Name Role Phone Jas Tellez MD Primary Care Provider [phone] Allergies Active Allergy Reactions Criticality Noted Date [...] - 03/22/2025 11:59 PM EDT Hospital Encounter [facility]istry Practice [address] [address] Lala Sunshine DDS, PhD Discharge Disposition: Home [...] Upcoming Encounters Date Type Department Care Team ([facility] st Contact Info) Description 09/20/2025 10:30 AM EST Appointment [facility] [address] [place] [address] Lala Domingo DDS, PhD [address] [place] [address] [email or web address] Health Maintenance Due Date Last Done Comments [...] topic Medical Devices Not on file Insurance [facility] ONE CARE MEDICARE REPLACEMENT MEDICARE PART A & B [facility] C[facility] MEDICARE REPLACEMENT [place] [id number] MEDICARE PART A & B [facility] CARE MEDICARE REPLACEMENT [place] [id number] MEDICARE PART A & B MEDICARE PART A & B [facility] CARE MEDICARE REPLACEMENT MEDICARE PART A & B [facility] ONE CARE MEDICARE REPLACEMENT MEDICARE PART A & B Care Teams Strickler Attendant Relationship Specialty Start Date End Date Jas Tellez MD [address] [place] [phone] PCP - General Internal Medicine 02/02/23 Additional Source Comments The information contained in this document represents components of the legal health record. It is not the complete legal health record.[facility]
== END 2025-05-15 14:32 | disposition home or self-care (01) ==
LOC: HO.HCS 14:05
PROVIDERS: PCP Internal Medicine; Visit Provider Internal Medicine
DX: I44.7 Left bundle-branch block, unspecified (principal); I42.9 Cardiomyopathy, unspecified
CPT/HCPCS: 93010; 99214

== ENCOUNTER → 2025-05-15 14:04 | Outpatient (BNVA) | payer OTHER, SELFPAY | PROVIDERS: PCP Internal Medicine; Visit Provider Internal Medicine | DX: I44.7 Left bundle-branch block, unspecified (principal); I42.9 Cardiomyopathy, unspecified | CPT/HCPCS: 93005; 99212 ==

== ENCOUNTER 2025-05-24 14:50 | Outpatient (REF) | payer OTHER, SELFPAY ==
--- NOTE | ~2025-05-24 | XR_ITS ---
EXAMINATION: XR CHEST CLINICAL INFORMATION: R05.9 - Cough, unspecified COMPARISON: None available. TECHNIQUE: 2 views of the chest were obtained. FINDINGS: The lungs are well-expanded and clear acute pneumonic process. The heart size and pulmonary vascularity is normal. No gross bony abnormality seen. XR/XR chest 2V IMPRESSION: Unremarkable chest exam. No major change from 09/14/2019 Electronically signed by: Tyson Claire MD 05/25/2025 07:02 AM EDT
== END 2025-05-24 14:51 | disposition home or self-care (01) ==
LOC: HO.XRAY 14:50
PROVIDERS: PCP Internal Medicine; Visit Provider Internal Medicine
DX: J45.901 Unspecified asthma with (acute) exacerbation (principal)
CPT/HCPCS: 71046; 99212

== ENCOUNTER 2025-05-24 14:50 | Outpatient (AMB) | payer OTHER, SELFPAY ==
[2025-05-24 15:02] VITALS: BP 110/80; PULSE 68; O2SAT 99; BMI 30.5
--- NOTE | 2025-05-24 15:02 | MHC.PC.OV ---
Vital Signs 05/24/25 15:02 Height 5 ft 5 in Weight 183 lb 4 oz BMI 30.5 BP 110/80 Blood Pressure Location Lt brachial Position Sitting Pulse 68 Pulse Source Pulse Oximeter Pulse Oximetry (%) 99 Oxygen Delivery Method Room Air Intake Visit Reasons: cough and wheezing Real Estate Services Administrator Required: No Accompanied by: Self / Same As Patient Allergies Penicillins (PENICILLINS) Allergy (Intermediate, Verified 05/24/25 15:03) HIVES latex (Latex) Allergy (Mild, Verified 05/24/25 15:03) RASH Medication List - Last Reconciled 05/24/25 by Brandon Pedersen MD albuterol sulfate 2.5 mg (3 mL) inhalation QID PRN ascorbate calcium (vitamin C) 500 mg PO DAILY azithromycin 500 mg PO DAILY 5 days clobetasol 0.05% 1 appl topical BID clonazepam 1 mg PO BEDTIME desvenlafaxine ER 100 mg PO DAILY gabapentin 300 mg PO .QD 15 days linaclotide (Linzess) 290 mcg PO DAILY melatonin 5 mg PO BEDTIME PRN meloxicam 15 mg PO DAILY PRN multivitamin 1 tab PO DAILY omeprazole 20 mg PO BID oxcarbazepine 600 mg PO BID prednisone 40 mg (2 x 20 mg) PO DAILY rosuvastatin 5 mg PO DAILY thiamine HCl (vitamin B1) 100 mg PO DAILY topiramate 25 mg PO BID Ventolin HFA 90 mcg/actuation (albuterol sulfate) 2 puffs PO Q6H PRN 30 days NS Tobacco use date assessed: 05/24/25 Dental Screening Dental Screen Date: 05/24/25 Did you have a dental visit in the last 12 months?: Yes Did you have a dental problem in the last 6 months where you did not have access to dental care?: No Was dental information given to patient?: Patient has dentist HPI HPI Comments History of Present Illness Details The patient is a 59-year-old female presenting with an exacerbation of asthma. The asthma symptoms began over a week ago, characterized by worsening cough, wheezing, and chest and back pain due to excessive coughing. The symptoms are more severe at night and in the morning, and they worsen with physical activity such as walking. The patient has a history of chronic asthma and typically uses an albuterol inhaler, but she has not taken prednisone recently as she did not have it available. This is the first asthma flare-up this year, whereas in previous years, she experienced frequent exacerbations. The patient performed a COVID test, which was negative, and she attributes the current exacerbation to allergy season, which typically triggers her asthma. [facility] Medical History Colon cancer screening Annual physical exam Obesity (BMI 30-39.9) Cervical cancer screening Constipation Seizure-like activity Impacted cerumen of right ear Bilateral hand pain Bilateral ankle pain Oral lichenoid mucositis Observed seizure-like activity Seizure disorder Disc degeneration, lumbar Spondylosis of lumbar spine Sacroiliitis Renal calculi Peptic ulcer disease GERD (gastroesophageal reflux disease) Migraine TIA (transient ischemic attack) Bipolar disorder Asthma Hypercholesterolemia Vitamin D deficiency Carpal tunnel syndrome Lumbar spondylosis Osteoarthritis of hands, bilateral Surgical History Hx of colonoscopy Vocal cord cyst H/O plastic surgery History of arthroscopy of right knee History of lumbar surgery History of abdominoplasty History of gastric surgery LAP-BAND surgery status History of tubal ligation History of tonsillectomy History of cholecystectomy Family History Father Throat cancer Esophageal cancer Mother Hypertension Cancer Maternal Grandmother Uterine cancer Maternal Aunt Uterine cancer Maternal Uncle Esophageal cancer Prostate cancer Daughter Oral cancer Social History Household Members: Spouse Housing: House Alcohol intake: never Patient Tobacco Use Status: Former Tobacco user Tobacco use type: Cigarette Years Smoked: 1989 e-Cigarette/Vaping Use: Never Used Second Hand Smoke Exposure: Yes service: No Current occupational status: disabled Cognitive needs: No Hearing needs: No Vision needs: Yes (reading glasses) Questionnaire Thrive Questionnaire Date Thrive assessed: 03/13/25 I am a: Patient What is your living situation today?: I have a steady place to live Within the past 12 months, did the food you bought not last and you didn't have the money to get more?: I choose not to answer this question Within the past 12 months, did you worry whether your food would run out before you got money to buy more?: I choose not to answer this question Do you have trouble paying for medicines?: No Do you have trouble getting transportation to medical appointments?: I choose not to answer this question Do you have trouble paying your heating and electricity bill?: I choose not to answer this question Do you have trouble taking care of your child, family member or friend?: I choose not to answer this question Do you have trouble with day-to-day activities such as bathing, preparing meals, shopping, managing finances, etc.?: I choose not to answer this question Are you currently unemployed and looking for a job?: I choose not to answer this question Are you interested in more education?: No Please select the resources that you would like help with: Job search/training Currently or been in a relationship where the following occur: No concerns reported THRIVE Score: 0 AUDIT C Alcohol Use Questionnaire (AUDIT-C) 1. How often do you have a drink containing alcohol?: Never 3. How often do you have six or more drinks on one occasion?: Never Total Score: 0 PEPE-7 AMB Questionnaire PEPE-7 Date PEPE - 7 assessed: 03/13/25 Source: Developed by Drs. Juma Mckinley, Lani Chen, Vinny Beltrán and colleagues, with an educational shiraz from [employer]. Review of Systems Const Details: Not done. Physical exam (Primary Care) Vital Signs: Last Vital Signs Pulse 68 05/24/25 15:02 BP 110/80 05/24/25 15:02 Pulse Ox 99 05/24/25 15:02 Oxygen Delivery Method Room Air 05/24/25 15:02 BMI result Body Mass Index 30.5 Tobacco/Smoking Status: Tobacco use Status Tobacco use date assessed 05/24/25 05/24/25 15:04 Patient Tobacco Use Status Former Tobacco user 05/24/25 15:04 Tobacco use type Cigarette 05/24/25 15:04 e-Cigarette/Vaping Use Never Used 05/24/25 15:04 Thrive Assessment: Date of Thrive Assessment Date Thrive assessed 03/13/25 05/24/25 15:04 Currently or been in a relationship where the following occur: No concerns reported Const Other: Pertinent findings are in BOLD GENERAL APPEARANCE NAD, activity normal for age, well developed/ well nourished, no cyanosis, pallor, or diaphoresis. EYES lids/conjunctiva normal. EARS/NOSE/THROAT Mucous membranes moist, nares normal, lips/teeth normal uvula midline without oral pharyngeal erythema, exudate or swelling TMs normal bilaterally. No lymphangitis/lymphedema. HEAD/NECK normocephalic atraumatic, no facial trauma, neck is supple. RESPIRATORY respiratory effort normal, speaks in full sentences, no tripod position, no accessory muscle use. Lungs clear to auscultation without rhonchi, rales. Mild wheezing. CARDIAC Regular rate and rhythm, no edema. ABDOMINAL Soft, ND/NT. No evidence of fluid wave. No pulsatile masses on exam, rebound tenderness, Randhawa sign or pain over Mcburney's point. MUSCLES/EXTREMITIES No abnormal range of motion, no swelling. SKIN Warm, pink and dry. No rashes, dermatoses, petechiae or lesions. NEUROLOGICAL Speech is clear and appropriate. Normal level of consciousness. Gait and coordination are normal. 5/5 strength in all extremities. PSYCH Normal mood and affect. Judgement/competence is appropriate Coding Level of Care Code Est Pt Level 3 (87495) Diagnoses Cough R05.9 Time Spent (min) 20 Assessment & Plan Assessment & Plan (1) Cough: Code(s): R05.9 - Cough, unspecified Category: Medical Plan: - Prescribed prednisone for 5 days. - Prescribed azithromycin for 5 days. - Recommended chest x-ray to assess current status. - Advised to visit the emergency department if symptoms worsen. Plan I discussed with the patient the management of her asthma exacerbation, including the prescription of prednisone and azithromycin for five days. I recommended a chest x-ray to evaluate her current respiratory status and advised her to seek emergency care if her symptoms worsen. Additionally, I prescribed Zyrtec to helpo with allergy symptoms. Advised patient to go to ED in case her symptoms worsen. Orders: Orders XR chest 2V Today R05.9 - Cough, unspecified Medications: New prednisone 40 mg (2 x 20 mg) PO DAILY 5 tabs 0RF azithromycin 500 mg PO DAILY 5 tabs 0RF 5 days cetirizine (Zyrtec) 10 mg PO DAILY PRN 7 caps 0RF allergy symptoms
--- OUTSIDE RECORDS SUMMARY | 2025-05-24 18:41 | XMS_ITS | Clinical Summary ---
Author Organization [facility] Address [address] [facility] [address] [place] [phone] Phone Care Team Providers Care Telephone Ad Taker Name Role Phone Jas Tellez MD Primary Care Provider [phone] Allergies Active Allergy Reactions Criticality Noted Date [...] 11:59 PM EDT Hospital Encounter [facility] Oral Medicine and Dentistry Practice [address] [address] Lala Sunshine DDS, PhD Discharge Disposition: Home [...] Upcoming Encounters Date Type Department Care Team ([facility] st Contact Info) Description 09/20/2025 10:30 AM EST Appointment [facility] Oral Medicine and Dentistry Practice [address] [place] [address] Lala Domingo DDS, PhD [address] [place] [address] [email or web address] Health Maintenance Due Date Last Done Comments [...] topic Medical Devices Not on file Insurance [facility] ONE CARE MEDICARE REPLACEMENT MEDICARE PART A & B [facility] C[facility] MEDICARE REPLACEMENT [place] [id number] MEDICARE PART A & B [facility] C[facility] MEDICARE REPLACEMENT [place] [address] MEDICARE PART A & B MEDICARE PART A & B [facility] C[facility] MEDICARE REPLACEMENT MEDICARE PART A & B [facility] ONE CARE MEDICARE REPLACEMENT MEDICARE PART A & B Care Teams Telephone Ad Taker Relationship Specialty Start Date End Date Jas Tellez MD [address] [place] [phone] PCP - General Internal Medicine 02/02/23 Additional Source Comments The information contained in this document represents components of the legal health record. It is not the complete legal health record.[facility]
--- OUTSIDE RECORDS SUMMARY | 2025-05-24 18:41 | XMS_ITS | Clinical Summary ---
Author Organization 175 [facility] Address [address] [place] [address] Phone Care Team Providers Care Sheet Metal Duct Installer Helper Name Role Phone Jas Tellez MD Primary Care Provider [phone] Allergies Active Allergy Reactions Criticality Noted Date [...] disease) 8 Kidney stone 03/02/2018 Seizure disorder ([facility] V24, [facility] V28) 02/07 Anxiety 03/02/2018 Depression 03/02/2018 Surgical History Surgery Date Site/Laterality Comments OTHER SURGICAL HISTORY PROCEDURE: ---- OTHER ----; COMMENT: gastric band converted to sleeve gastrectomy OTHER SURGICAL HISTORY PROCEDURE: ---- OTHER ----; COMMENT: abdominoplasty OTHER SURGICAL HISTORY 2015 PROCEDURE: MA LAPT RPR PARAESOPH HIATAL HERNIA W/MESH CHOLECYSTECTOMY PROCEDURE: HISTORICAL CHOLECYSTECTOMY KNEE SURGERY PROCEDURE: HISTORICAL KNEE SURGERY OTHER SURGICAL HISTORY PROCEDURE: ---- OTHER ----; COMMENT: liposuction, bilateral brachioplasty BACK SURGERY PROCEDURE: HISTORICAL BACK SURGERY; COMMENT: fatty tumor removed from lumbar disk OTHER SURGICAL HISTORY PROCEDURE: ---- OTHER ----; COMMENT: vocal cord tumor removed UPPER GASTROINTESTINAL ENDOSCOPY 06/19/2020 PROCEDURE: MA UPPER GI ENDOSCOPY PERFORMED; COMMENT: H.pylori positive and esophagus biopsy consistent with GERD COLONOSCOPY 06/19/2020 PROCEDURE: HISTORICAL COLONOSCOPY; COMMENT: diverticulosis Medical History Medical History Date Comments Seizure disorder ([facility] V2 4, [facility] V28) 03/02/2018 DX:Seizure disorder ([facility]) History of bariatric surgery 03/02/2018 DX: History [...] Group ID:ICO Type:Not on file Address: [address] [facility] [place] [address] Care Teams Sheet Metal Duct Installer Helper Relationship Specialty Start Date End Date Jas Tellez MD [address] [place] [address] [address] [facility] [place] [address] PCP - General Internal Medicine 02/02/12
== END 2025-05-24 15:46 | disposition home or self-care (01) ==
LOC: HO.HMCH 14:50
PROVIDERS: PCP Internal Medicine; Visit Provider Internal Medicine
DX: R05.9 Cough, unspecified (principal)

== ENCOUNTER → 2025-05-24 16:03 | Outpatient (BNV) | payer OTHER, SELFPAY | PROVIDERS: PCP Internal Medicine; Visit Provider Radiology Diagnostic Radiology | DX: R05.9 Cough, unspecified (principal) | CPT/HCPCS: 71046 ==

== ENCOUNTER 2025-05-31 10:17 | Outpatient (AMB) | payer OTHER, SELFPAY ==
[2025-05-31 10:29] VITALS: BP 140/62; PULSE 76; RESP 18; TEMP 36.3; O2SAT 96; BMI 30.8
--- NOTE | 2025-05-31 10:29 | A.OFFPC_ITS ---
Vital Signs 05/31/25 10:29 Height 5 ft 5 in Weight 185 lb BMI 30.8 BP 140/62 H Blood Pressure Location Lt brachial Position Sitting Respiration 18 Pulse 76 Pulse Source Pulse Oximeter Temp 97.3 F Temp Source Temporal Artery Scan Pulse Oximetry (%) 96 Oxygen Delivery Method Room Air Intake Visit Reasons: 1 week f/u General Administrator Required: No Accompanied by: Self / Same As Patient Allergies Penicillins (PENICILLINS) Allergy (Intermediate, Verified 05/31/25 10:30) HIVES latex (Latex) Allergy (Mild, Verified 05/31/25 10:30) RASH Medication List - Last Reconciled 05/31/25 by Brandon Pedersen MD albuterol sulfate 2.5 mg (3 mL) inhalation QID PRN ascorbate calcium (vitamin C) 500 mg PO DAILY cetirizine (Zyrtec) 10 mg PO DAILY PRN clobetasol 0.05% 1 appl topical BID clonazepam 1 mg PO BEDTIME desvenlafaxine ER 100 mg PO DAILY gabapentin 300 mg PO .QD 15 days linaclotide (Linzess) 290 mcg PO DAILY melatonin 5 mg PO BEDTIME PRN meloxicam 15 mg PO DAILY PRN multivitamin 1 tab PO DAILY omeprazole 20 mg PO BID oxcarbazepine 600 mg PO BID rosuvastatin 5 mg PO DAILY thiamine HCl (vitamin B1) 100 mg PO DAILY topiramate 25 mg PO BID Ventolin HFA 90 mcg/actuation (albuterol sulfate) 2 puffs PO Q6H PRN 30 days NS Tobacco use date assessed: 05/31/25 Dental Screening Dental Screen Date: 06/13/25 Did you have a dental visit in the last 12 months?: Yes Did you have a dental problem in the last 6 months where you did not have access to dental care?: No Was dental information given to patient?: Patient has dentist HPI HPI Comments History of Present Illness Details The patient is a 59-year-old female presenting for 1 week follow-up. The patient was seen in clinic one week ago for asthma exacerbation with symptoms of cough, wheezing and SOB. The patient was treated with steroids and azithromycin. Today she reports her symptoms resolved. In addition, the patient reports experiencing headaches almost daily, which have not been alleviated by Tylenol, though meloxicam provides occasional relief. The headaches are accompanied by a sensation of dizziness and occasional mild headaches. The patient also reports gastrointestinal issues, including a history of acid reflux for which she takes omeprazole twice daily. She has been advised to consider dietary changes, such as reducing dairy and gluten, to assess their impact on her symptoms. Postoperatively, following a tummy tuck, the patient experienced increased bloating and frequent urination, which she was informed are normal postoperative symptoms. [facility] Medical History Colon cancer screening Annual physical exam Obesity (BMI 30-39.9) Cervical cancer screening Constipation Seizure-like activity Impacted cerumen of right ear Bilateral hand pain Bilateral ankle pain Oral lichenoid mucositis Observed seizure-like activity Seizure disorder Disc degeneration, lumbar Spondylosis of lumbar spine Sacroiliitis Renal calculi Peptic ulcer disease GERD (gastroesophageal reflux disease) Migraine TIA (transient ischemic attack) Bipolar disorder Asthma Hypercholesterolemia Vitamin D deficiency Carpal tunnel syndrome Lumbar spondylosis Osteoarthritis of hands, bilateral Surgical History Hx of colonoscopy Vocal cord cyst H/O plastic surgery History of arthroscopy of right knee History of lumbar surgery History of abdominoplasty History of gastric surgery LAP-BAND surgery status History of tubal ligation History of tonsillectomy History of cholecystectomy Family History Father Throat cancer Esophageal cancer Mother Hypertension Cancer Maternal Grandmother Uterine cancer Maternal Aunt Uterine cancer Maternal Uncle Esophageal cancer Prostate cancer Daughter Oral cancer Social History Household Members: Spouse Housing: House Alcohol intake: never Patient Tobacco Use Status: Former Tobacco user Tobacco use type: Cigarette Years Smoked: quit 1989 e-Cigarette/Vaping Use: Never Used Second Hand Smoke Exposure: Yes service: No Current occupational status: disabled Cognitive needs: No Hearing needs: No Vision needs: Yes (reading glasses) Questionnaire Thrive Questionnaire Date Thrive assessed: 03/13/25 I am a: Patient What is your living situation today?: I have a steady place to live Within the past 12 months, did the food you bought not last and you didn't have the money to get more?: I choose not to answer this question Within the past 12 months, did you worry whether your food would run out before you got money to buy more?: I choose not to answer this question Do you have trouble paying for medicines?: No Do you have trouble getting transportation to medical appointments?: I choose not to answer this question Do you have trouble paying your heating and electricity bill?: I choose not to answer this question Do you have trouble taking care of your child, family member or friend?: I choose not to answer this question Do you have trouble with day-to-day activities such as bathing, preparing meals, shopping, managing finances, etc.?: I choose not to answer this question Are you currently unemployed and looking for a job?: I choose not to answer this question Are you interested in more education?: No Please select the resources that you would like help with: Job search/training Currently or been in a relationship where the following occur: No concerns reported THRIVE Score: 0 PEPE-7 AMB Questionnaire PEPE-7 Date PEPE - 7 assessed: 03/13/25 Source: Developed by Drs. Juma Mckinley, Lani Chen, Vinny Beltrán and colleagues, with an educational shiraz from [employer]. Review of Systems Const Details: Not done. Physical exam (Primary Care) Vital Signs: Last Vital Signs Temp 97.3 F 05/31/25 10:29 Pulse 76 05/31/25 10:29 Resp 18 05/31/25 10:29 BP 140/62 H 05/31/25 10:29 Pulse Ox 96 05/31/25 10:29 Oxygen Delivery Method Room Air 05/31/25 10:29 BMI result Body Mass Index 30.8 Tobacco/Smoking Status: Tobacco use Status Tobacco use date assessed 05/31/25 05/31/25 10:46 Patient Tobacco Use Status Former Tobacco user 05/31/25 10:46 Tobacco use type Cigarette 05/31/25 10:46 e-Cigarette/Vaping Use Never Used 05/31/25 10:46 Thrive Assessment: Date of Thrive Assessment Date Thrive assessed 03/13/25 05/31/25 10:46 Currently or been in a relationship where the following occur: No concerns reported Const Other: Pertinent findings are in BOLD GENERAL APPEARANCE NAD, activity normal for age, well developed/ well nourished, no cyanosis, pallor, or diaphoresis. EYES lids/conjunctiva normal. EARS/NOSE/THROAT Mucous membranes moist, nares normal, lips/teeth normal uvula midline without oral pharyngeal erythema, exudate or swelling TMs normal bilaterally. No lymphangitis/lymphedema. HEAD/NECK normocephalic atraumatic, no facial trauma, neck is supple. RESPIRATORY respiratory effort normal, speaks in full sentences, no tripod position, no accessory muscle use. Lungs clear to auscultation without rhonchi, wheezes, rales CARDIAC Regular rate and rhythm, no edema. ABDOMINAL Soft, ND/NT. No evidence of fluid wave. No pulsatile masses on exam, rebound tenderness, Randhawa sign or pain over Mcburney's point. MUSCLES/EXTREMITIES No abnormal range of motion, no swelling. SKIN Warm, pink and dry. No rashes, dermatoses, petechiae or lesions. NEUROLOGICAL Speech is clear and appropriate. Normal level of consciousness. Gait and coordination are normal. 5/5 strength in all extremities. PSYCH Normal mood and affect. Judgement/competence is appropriate Coding Level of Care Code Est Pt Level 4 (98428) Diagnoses Acute cough R05.1 Cough type: acute Fatigue, unspecified type R53.83 Fatigue type: unspecified Chronic intractable headache, unspecified headache type R51.9; G89.29 Headache type: unspecified Headache chronicity pattern: chronic headache Intractability: intractable Time Spent (min) 30 Assessment & Plan Assessment & Plan (1) Cough: Code(s): R05.9 - Cough, unspecified Category: Medical Qualifiers: Cough type: acute Qualified Code(s): R05.1 - Acute cough Plan: Symptoms resolved after (2) Fatigue: Code(s): R53.83 - Other fatigue Category: Medical Qualifiers: Fatigue type: unspecified Qualified Code(s): R53.83 - Other fatigue Plan: Advised on lifestyle modification such as excluding dairy, gluten and sugar and assess how the patient is feeling. (3) Headache: Code(s): R51.9 - Headache, unspecified Category: Medical Qualifiers: Headache type: unspecified Headache chronicity pattern: chronic heada adrienne Intractability: intractable Qualified Code(s): R51.9 - Headache, unspecified; G89.29 - Other chronic pain Plan: Advised on lifestyle modification and assess correlation with symptoms. Lifestyle modifications including physical activity and improving diet. Plan Patient's cough resolved after being treated with Abx and steroids. We discussed the potential impact of dietary changes on the patient's symptoms, particularly the exclusion of dairy and gluten, and the importance of monitoring symptom changes. I advised the patient to continue with omeprazole for acid reflux management.
--- OUTSIDE RECORDS SUMMARY | 2025-05-31 12:14 | XMS_ITS | Clinical Summary ---
Author Organization [address] [facility] Address [address] [place] [address] Phone Care Team Providers Care Patient Transition Specialist Name Role Phone Jas Tellez MD Primary Care Provider [phone] Allergies Active Allergy Reactions Criticality Noted Date [...] disease) 8 Kidney stone 03/02/2018 Seizure disorder ([facility] V24, [facility] V28) 02/07 Anxiety 03/02/2018 Depression 03/02/2018 Surgical History Surgery Date Site/Laterality Comments OTHER SURGICAL HISTORY PROCEDURE: ---- OTHER ----; COMMENT: gastric band converted to sleeve gastrectomy OTHER SURGICAL HISTORY PROCEDURE: ---- OTHER ----; COMMENT: abdominoplasty OTHER SURGICAL HISTORY 2015 PROCEDURE: MN LAPT RPR PARAESOPH HIATAL HERNIA W/MESH CHOLECYSTECTOMY PROCEDURE: HISTORICAL CHOLECYSTECTOMY KNEE SURGERY PROCEDURE: HISTORICAL KNEE SURGERY OTHER SURGICAL HISTORY PROCEDURE: ---- OTHER ----; COMMENT: liposuction, bilateral brachioplasty BACK SURGERY PROCEDURE: HISTORICAL BACK SURGERY; COMMENT: fatty tumor removed from lumbar disk OTHER SURGICAL HISTORY PROCEDURE: ---- OTHER ----; COMMENT: vocal cord tumor removed UPPER GASTROINTESTINAL ENDOSCOPY 06/19/2020 PROCEDURE: MN UPPER GI ENDOSCOPY PERFORMED; COMMENT: H.pylori positive and esophagus biopsy consistent with GERD COLONOSCOPY 06/19/2020 PROCEDURE: HISTORICAL COLONOSCOPY; COMMENT: diverticulosis Medical History Medical History Date Comments Seizure disorder ([facility] V2 4, [facility] V28) 03/02/2018 DX:Seizure disorder ([facility]) History of bariatric surgery 03/02/2018 DX: [...] Group ID:ICO Type:Not on file Address: [address] [facility] [place] [address] Care Teams Patient Transition Specialist Relationship Specialty Start Date End Date Jas Tellez MD [address] [place] [address] [address] [facility] [place] [address] PCP - General Internal Medicine 02/02/12
--- OUTSIDE RECORDS SUMMARY | 2025-05-31 12:14 | XMS_ITS | Clinical Summary ---
Author Organization [facility] Address [address] [facility] [address] [place] [phone] Phone Care Team Providers Care Roll Edge Machine Operator Name Role Phone Jas Tellez MD Primary Care Provider [phone] Allergies Active Allergy Reactions Criticality Noted Date [...] - 03/22/2025 11:59 PM EDT Hospital Encounter [facility] [address] [address] Lala Sunshine DDS, PhD Discharge Disposition: Home [...] Upcoming Encounters Date Type Department Care Team ([facility] st Contact Info) Description 09/20/2025 10:30 AM EST Appointment [facility] [address] [place] [address] Lala Domingo DDS, PhD [address] [place] [address] [email or web address] Due Date Last Done Comments [...] topic Medical Devices Not on file Insurance [facility] MEDICARE REPLACEMENT MEDICARE PART A & B [facility] CARE MEDICARE REPLACEMENT [place] [id number] MEDICARE PART A & B [facility] CARE MEDICARE REPLACEMENT [place] [id number] MEDICARE PART A & B MEDICARE PART A & B [facility] CARE MEDICARE REPLACEMENT MEDICARE PART A & B [facility] C[facility] MEDICARE REPLACEMENT MEDICARE PART A & B Care Teams Roll Edge Machine Operator Relationship Specialty Start Date End Date Jas Tellez MD [address] [place] [phone] PCP - General Internal Medicine 02/02/23 Additional Source Comments The information contained in this document represents components of the legal health record. It is not the complete legal health record.[facility]
== END 2025-05-31 12:02 | disposition home or self-care (01) ==
LOC: HO.HMCH 10:18
PROVIDERS: PCP Internal Medicine; Visit Provider Internal Medicine
DX: R05.1 Acute cough (principal); R53.83 Other fatigue; R51.9 Headache, unspecified; G89.29 Other chronic pain

== ENCOUNTER → 2025-05-31 10:17 | Outpatient (BNVA) | payer OTHER, SELFPAY | PROVIDERS: PCP Internal Medicine; Visit Provider Internal Medicine | DX: J45.901 Unspecified asthma with (acute) exacerbation (principal); R51.9 Headache, unspecified; K21.9 Gastro-esophageal reflux disease without esophagitis; R05.1 Acute cough; R53.83 Other fatigue; G89.29 Other chronic pain | CPT/HCPCS: 99212 ==